=== PATIENT | male | born 1935 | race Caucasian/White ===

== ENCOUNTER 2018-06-22 11:44 | Inpatient (IN) | payer OTHER ==
--- NOTE | 2018-06-22 12:02 | PDOC ---
Attending Attestation - HPI HPI: 06/22/18 15:31 The patient is a 82 year old male, with a unknown significant past medical history of "heart, lung and prostate problems" (HTN, CAD, COPD, and BPH based on meds), who presents to the emergency department with, itching upon urination , prostate pain, and diffuse abdominal pain. He denies any recent headache or dizziness. He denies any recent nausea, vomit, diarrhea or constipation. He denies any recent chest pain or shortness of breath. Allergies: Aspirin <Emilie Stone - Last Filed: 06/22/18 15:30> - Resident Resident Name: Zahida Cao - Physicial Exam PE: 06/22/18 15:06 Agree with resident exam. Patient is alert and oriented and in no acute distress. Abdomen is mildly tender to deep palpation in the suprapubic area. Heart: regular rate and rhythm. Lung exam: good air entry b/l, scant crackles at the bases. - Medical Decision Making 06/22/18 13:58 Pt presents to the ED complaining of fever and supprapubic pain and rectal pain. Denies nausea or vomiting or other complaints. Febrile and tachycardic in the ED. Differential includes cystitis, prostatitis, less likely PNA or other sources of infection. Will check UA, blood and urine cx, CXR. Will treat with broad spectrum antibiotcs and admit to medicine for continued management of UTI. 06/22/18 15:03 <Estrella Garrett - Last Filed: 06/22/18 15:34> Attestations - Attestations 06/22/18 15:32 Documentation prepared by Emilie Stone, acting as certified medical aide for Estrella Garrett MD. <Emilie Stone - Last Filed: 06/22/18 15:30>
[2018-06-22] MEDS ORDERED: SODIUM CHLORIDE 0.9% 500 ML INFUS.BAG IV ONE (12:45)
[2018-06-22] MEDS ORDERED: ACETAMINOPHEN 1000 MG/100 ML VIAL (NON FORMULARY) IVPB ONE (12:45)
[2018-06-22] MEDS ORDERED: VANCOMYCIN 1 GM in D5W (PRE-DOCKED) 1,000 MG/250 ML IVPB ONE (12:50)
[2018-06-22] MEDS ORDERED: PIPERACILLIN/TAZOB 4.5 GM 4.5 GM in DEXTROSE 5%-WATER 100 ML IVPB ONE (12:50)
--- NOTE | 2018-06-22 12:52 | PDOC ---
History of Present Illness - General Chief Complaint: Pain Stated Complaint: ABD PAIN Time Seen by Provider: 06/22/18 11:58 - History of Present Illness Initial Comments: Solomon Cabral is an 82yo man with a PMH of "heart, lung and prostate problems " who presents reporting itching with urination, fever at home with shivering last night, and pain 'on the inside" of his rectum. He states that his prostate hurts but is unable to elaborate how he knows this. He states that he has 5/10 pain inside his rectum, and it is "not that bad" but is "bothering him." He denies any unusual difficulty urinating or hematuria but does report that his penis itches when he urinates. He denies any chest pain, nausea/vomiting, change in bowel habits (last BM this morning), melena/hematochezia, or other new symptoms. He does report chronic SOB, unchanged today, and chronic LLE pain that has been "always there." Mr Cabral is not sure what his medical history is. Per review of his medications, he takes Spiriva and another inhaler, losartan, clonidine, and Plavix. He reports a previous prostate procedure as well as a previous hospital admission for UTI. Past History - Past Medical History Allergies/Adverse Reactions: Allergies Allergy/AdvReac Type Severity Reaction Status Date / Time aspirin Allergy Severe Difficulty Verified 06/22/18 12:01 Breathing Home Medications: Ambulatory Orders Lisinopril [Prinivil] 20 mg PO DAILY 10/21/15 Tamsulosin HCl [Flomax -] 0.4 mg PO DAILY 10/21/15 Levofloxacin [Levaquin] 750 mg PO DAILY #4 tablet 10/24/15 COPD: No Disorders: Yes (enlarged prostate) HTN: Yes - Suicide/Smoking/Psychosocial Hx Smoking History: Never smoked Have you smoked in the past 12 months: No Information on smoking cessation initiated: No Hx Alcohol Use: No Drug/Substance Use Hx: No Substance Use Type: None Review of Systems - Review of Systems Comments:: General: +fevers, +shivering, no weight or appetite change, no malaise HEENT: No changes in vision, no changes in hearing, no congestion, no sore throat CV: No chest pain, no palpitations, no LE edema Pulm: +Chronic SOB, no cough, no wheezing GI: No nausea or vomiting, no change in bowel habits, no melena, +rectal pain : +pain/itching, +BPH (?) Musc: No back pain, no joint swelling, no recent injury, +LLE chronic pain Skin: No rash, no lesions, no erythema Endo: No excessive thirst, no heat/cold intolerance Heme: No unusual bruising or bleeding, no swollen glands Neuro: No syncope, no numbness/tingling, no focal weakness Vasc: No claudication Psych: No recent change in mood, no SI or HI *Physical Exam - Vital Signs Last Vital Signs Temp Pulse Resp BP Pulse Ox 102.3 F H 112 H 16 156/67 100 06/22/18 11:54 06/22/18 11:54 06/22/18 11:54 06/22/18 11:54 06/22/18 11:54 - Physical Exam Comments: General: Comfortable, no acute distress HEENT: PERRL, EOMI, MMM, voice normal, normal neck ROM, difficulty hearing Cards: Tachycardic, regular, no murmur appreciated Pulm: Comfortable on room air, diminished breath sounds in b/l bases Abd: Soft, nontender, nondistended : No CVA tenderness Rectal: Normal tone, no blood noted, no perianal lesions, +enlarged prostate with TTP Ext: Atraumatic. No LE edema. ROM intact. Strength equal bilaterally Vasc: Extremities WWP Skin: Normal color, no rashes or lesions Neuro: A&Ox3, CN grossly intact, normal speech, motor/sensory grossly intact and symmetric Psych: Mood appropriate to situation Moderate Sedation - Procedure Monitoring Vital Signs: Procedure Monitoring Vital Signs Temperature 102.3 F H 06/22/18 11:54 Pulse Rate 112 H 06/22/18 11:54 Respiratory Rate 16 06/22/18 11:54 Blood Pressure 156/67 06/22/18 11:54 O2 Sat by Pulse Oximetry (%) 100 06/22/18 11:54 ED Treatment Course - LABORATORY CBC & Chemistry Diagram: 06/22/18 12:50 06/22/18 12:50 - RADIOLOGY Radiology Studies Ordered: Category Date Time Status CHEST X-RAY PORTABLE* [RAD] Stat Radiology 06/22/18 12:44 Ordered Medical Decision Making - Medical Decision Making 06/22/18 12:51 Solomon Cabral is an 82yo man with a PMH of "heart, lung and prostate problems " (HTN, CAD, COPD, BPH based on meds) who presents with fever and rigors, pain/ itching with urination, and prostate TTP since yesterday. - Meets sepsis criteria, most likely secondary to UTI or prostatitis. No cough, congestion, abd pain, rash, or wounds suggesting another source - CBC, chemistry, trop, blood cultures, urine culture, lactate, CXR, EKG for evaluation - Stool occult blood sent given rectal pain - 1L IVF, IV acetaminophen, empiric vanc/zosyn - Will reassess vitals following fluids and acetaminophen 06/22/18 13:42 - Labs notable for WBC 16, UA with 2+ leuk esterase (cell counts pending), lactate normal - HR decreased to 88. Will recheck temp - Discussed admission with Mr Cabral and his . Both agree to this plan - Microblog sent to hospitalist team for admission for sepsis secondary to UTI 06/22/18 15:54 - Pt signed out to Dr Rashid. Mr Cabral will be accepted for inpatient admission Discussed with Dr Garrett. Zahida Cao PGY1 *DC/Admit/Observation/Transfer Diagnosis at time of Disposition: Sepsis Urinary tract infection Qualifiers: Urinary tract infection type: site unspecified Hematuria presence: without hematuria Qualified Code(s): N39.0 - Urinary tract infection, site not specified - Discharge Dispostion Condition at time of disposition: Stable Decision to Admit order: Yes - Referrals Referrals: ON STAFF,NOT [Primary Care Provider] - - Patient Instructions - Post Discharge Activity
[2018-06-22] MEDS ORDERED: ACETAMINOPHEN INJECTION 100 ML IVPB ONE (13:09)
[2018-06-22 13:31] LABS: VENOUS PC02 46.3 mmHg (38-52); VENOUS PH 7.39 (7.32-7.42); VENOUS PO2 27.9 mmHg (28-48)
[2018-06-22 13:34] LABS: INR 1.32 (0.83-1.09); PROTHROMBIN TIME (PATIENT) 15.6 SEC (9.7-13.0)
[2018-06-22 13:37] LABS: ACTIVATED PTT 33.5 SECONDS (25.2-36.5)
[2018-06-22 13:44] LABS: BASO % 0.1 % (0-2.0); HEMATOCRIT 40.6 % (35.4-49); HEMOGLOBIN 13.5 GM/dL (11.7-16.9); LYMPH % 5.4 % (8-40); MCH 27.3 pg (25.7-33.7); MCHC 33.3 g/dl (32.0-35.9); MEAN CELL VOLUME 82.1 fl (80-96); MEAN PLT VOLUME 9.2 fl (7.5-11.1); MONO % 11.8 % (3.8-10.2); NEUT % 82.7 % (42.8-82.8); PLATELET COUNT 135 K/MM3 (134-434); RBC 4.95 M/mm3 (4.00-5.60); RDW 14.5 % (11.9-15.9); URINE APPEARANCE CLOUDY; URINE BILIRUBIN NEGATIVE (<2.0 mg/dL); URINE COLOR YELLOW; URINE GLUCOSE (UA) NEGATIVE (NEGATIVE); URINE KETONE NEGATIVE (NEGATIVE); URINE LEUK ESTERASE 2+ (NEGATIVE); URINE NITRITE POSITIVE (NEGATIVE); URINE PROTEIN 1+ (NEGATIVE); WHITE BLOOD COUNT 16.9 K/mm3 (4.0-10.0)
[2018-06-22 13:47] LABS: ALBUMIN 3.5 g/dl (3.4-5.0); ALK PHOS 81 U/L (45-117); ANION GAP 7 MMOL/L (8-16); BILIRUBIN,TOTAL 1.7 mg/dL (0.2-1); BLOOD UREA NITROGEN 18 mg/dL (7-18); CALCIUM 8.5 mg/dL (8.5-10.1); CHLORIDE 103 mmol/L (98-107); CO2 27 mmol/L (21-32); CREATININE 1.2 mg/dL (0.55-1.3); GLUCOSE,RANDOM 85 mg/dL (74-106); POTASSIUM 3.8 mmol/L (3.5-5.1); SGOT/AST 15 U/L (15-37); SGPT/ALT 18 U/L (13-61); SODIUM 137 mmol/L (136-145); TOT PROT 7.2 g/dl (6.4-8.2)
[2018-06-22] MEDS ORDERED: PIPERACILLIN/TAZOB 4.5 GM 4.5 GM/100 ML BAG IVPB ONE (13:55)
[2018-06-22 15:17] LABS: URINE BACTERIA MODERATE /hpf (NONE SEEN); URINE MUCUS FEW
--- NOTE | 2018-06-22 15:50 | PN ---
Teaching Attending Note Name of Resident: Jacob Rashid ATTENDING PHYSICIAN STATEMENT I saw and evaluated the patient. I reviewed the resident's note and discussed the case with the resident. I agree with the resident's findings and plan as documented. SUBJECTIVE: Patient is a 82yo Ukrainian-speaking Male with PMHx of HTN, COPD, BPH, mild dementia who presents today with a 1 day hx of rectal pain, fever, and chills experienced last night. patient is s/p cystoscopy with [facility] about 3weeks due to having hematuria. Presents with having fever of 102.5 with tachycardia. OBJECTIVE: Vital Signs Temperature 102.3 F H 06/22/18 11:54 Pulse Rate 90 06/22/18 15:29 Respiratory Rate 18 06/22/18 15:29 Blood Pressure 106/55 L 06/22/18 15:29 O2 Sat by Pulse Oximetry (%) 95 06/22/18 15:29 GENERAL: The patient is awake, alert, and fully oriented, in no acute distress. HEAD: Normal with no signs of trauma. EYES: PERRL, extraocular movements intact, sclera anicteric, conjunctiva clear. ENT: Ears normal, oropharynx clear without exudates, moist mucous membranes. NECK: Trachea midline, full range of motion, supple. LUNGS: Breath sounds equal, clear to auscultation bilaterally, no wheezes, no crackles, no accessory muscle use. HEART: Regular rate and rhythm, S1, S2 without murmur, rub or gallop. ABDOMEN: Soft, nontender, nondistended, normoactive bowel sounds, no guarding, no rebound, no hepatosplenomegaly, no masses. EXTREMITIES: 2+ pulses, warm, well-perfused, no edema. NEUROLOGICAL: Cranial nerves II through XII grossly intact. Normal speech, gait not observed. PSYCH: Normal mood, normal affect. SKIN: Warm, dry, normal turgor, no rashes or lesions noted. CBCD WBC 16.9 K/mm3 (4.0-10.0) H 06/22/18 12:50 RBC 4.95 M/mm3 (4.00-5.60) 06/22/18 12:50 Hgb 13.5 GM/dL (11.7-16.9) 06/22/18 12:50 Hct 40.6 % (35.4-49) D 06/22/18 12:50 MCV 82.1 fl (80-96) 06/22/18 12:50 MCHC 33.3 g/dl (32.0-35.9) 06/22/18 12:50 RDW 14.5 % (11.9-15.9) 06/22/18 12:50 Plt Count 135 K/MM3 (134-434) D 06/22/18 12:50 MPV 9.2 fl (7.5-11.1) 06/22/18 12:50 CMP Sodium 137 mmol/L (136-145) 06/22/18 12:50 Potassium 3.8 mmol/L (3.5-5.1) 06/22/18 12:50 Chloride 103 mmol/L (98-107) 06/22/18 12:50 Carbon Dioxide 27 mmol/L (21-32) 06/22/18 12:50 Anion Gap 7 MMOL/L (8-16) L 06/22/18 12:50 BUN 18 mg/dL (7-18) 06/22/18 12:50 Creatinine 1.2 mg/dL (0.55-1.3) 06/22/18 12:50 Creat Clearance w eGFR 58.11 (>60) 06/22/18 12:50 Random Glucose 85 mg/dL (74-106) 06/22/18 12:50 Calcium 8.5 mg/dL (8.5-10.1) 06/22/18 12:50 Total Bilirubin 1.7 mg/dL (0.2-1) H 06/22/18 12:50 AST 15 U/L (15-37) 06/22/18 12:50 ALT 18 U/L (13-61) 06/22/18 12:50 Alkaline Phosphatase 81 U/L (45-117) 06/22/18 12:50 Total Protein 7.2 g/dl (6.4-8.2) 06/22/18 12:50 Albumin 3.5 g/dl (3.4-5.0) 06/22/18 12:50 CARDIAC ENZYMES Troponin I < 0.02 ng/ml (0.00-0.05) 06/22/18 12:44 Vital Signs Temperature 102.3 F H 06/22/18 11:54 Pulse Rate 90 06/22/18 15:29 Respiratory Rate 18 06/22/18 15:29 Blood Pressure 106/55 L 06/22/18 15:29 O2 Sat by Pulse Oximetry (%) 95 06/22/18 15:29 Current Medications Generic Name Dose Route Start Last Admin Trade Name Freq PRN Reason Stop Dose Admin Acetaminophen 650 mg 06/22/18 15:56 Tylenol - PO Q4H PRN FEVER Clopidogrel Bisulfate 75 mg 06/23/18 10:00 Plavix - PO DAILY FIDEL Donepezil HCl 5 mg 06/23/18 10:00 Aricept - PO DAILY FIDEL Sodium Chloride 1,000 mls @ 100 mls/hr 06/22/18 16:00 06/22/18 16:15 Normal Saline - IV 06/23/18 01:59 100 mls/hr ASDIR FIDEL Administration Piperacillin Sod/Tazobactam 50 mls @ 100 mls/hr 06/22/18 18:00 Sod 3.375 gm/ Dextrose IVPB Q8H-IV FIDEL Protocol Piperacillin Sod/Tazobactam 50 mls @ 100 mls/hr 06/22/18 18:00 Sod 3.375 gm/ Dextrose IVPB 06/23/18 10:29 Q8H-IV FIDEL Protocol Losartan Potassium 25 mg 06/23/18 10:00 Cozaar - PO DAILY FIDEL Tamsulosin HCl 0.4 mg 06/23/18 10:00 Flomax - PO DAILY [facility] Tiotropium [place] 2 puff 06/23/18 10:00 Spiriva Respimat IH DAILY [facility] Home Medications Medication Instructions Recorded Tamsulosin HCl [Flomax -] 0.4 mg PO DAILY 10/21/15 Clopidogrel Bisulfate [Plavix] 75 mg PO DAILY 06/22/18 Donepezil HCl [Aricept -] 5 mg PO DAILY 06/22/18 Losartan Potassium [Cozaar -] 25 mg PO DAILY 06/22/18 Tiotropium [place] [Spiriva 2.5 mcg IH DAILY 06/22/18 Respimat] ASSESSMENT AND PLAN: Patient is a 82yo Ukrainian-speaking Male with PMHx of HTN, COPD, BPH, mild dementia who presents today with a 1-day history of rectal pain, fever, and chills experienced last night. Hx of UTI a month ago which he was treated with Levaquin. In the ED pt was given Vancomycin 1gm and Zosyn 4.5 x1 each alongside of 1LNS and tylenol. # Sepsis due to having Urinary tract infection On IV ZOsyn consulted id since patient had a recent cytoscopy. # Acute COPD Exacerbation on 2 liter oxygen at home . will continue oxygen. Nebulizer treatment #Acute Dehydration s/p IVF # hx of BPH :continue Flomax # Hypertension: continue Lisinopril DVT px: Heparin sq
--- NOTE | 2018-06-22 15:53 | HP ---
CHIEF COMPLAINT: Fever, chills, rectal pain PCP: Not on staff HISTORY OF PRESENT ILLNESS: 82yo Kenyan-speaking M with history of HTN, COPD, BPH, mild dementia who presents today with a 1-day history of rectal pain, fever, and chills experienced last night. Pt reports undergoing cystoscopy with [facility]iezer about 3weeks to 1 month ago due to 5 days of hematuria. He reports taking Levaquin ( unknown dose) after his cystoscopy for a total of 3 days for prophylaxis. Pt states he cannot remember what the findings of the cystoscopy were, but his hematuria subsided shortly thereafter. Since last night (06/21/18) pt has been experiencing rectal discomfort, however his last BM was yesterday with normal character and quality. He reports that when he urinates he experiences itching, however he has had normal strength and quantity of urine. Pt denies hematuria. During the night pt experienced frequent chills and fevers with slight diaphoresis and so came to the ER today for further evaluation. Pt also endorses minimal lower abdominal discomfort rated 3-4/10 without radiation, exacerbation, or alleviation. Pt denies any headaches, lightheadedness, n/v/ diarrhea/constipation, SOB, CP/discomfort, palpitations, back pain, neck pain, lower extremity pain, parasthesias, and weakness. In the ED pt was given Vancomycin 1gm and Zosyn 4.5 x1 each alongside of 1LNS and tylenol. Recent Travel: Denies PAST MEDICAL HISTORY: HTN COPd BPH Mild dementia ? CAD (aspirin allergy) PAST SURGICAL HISTORY: Cystoscopy (1 month prior; Dr. Martins) Social History: Smoking: Denies Alcohol: Denies Drugs: Denies Lives at home in monogamous relationship with . Independent in ADL's without assist devices Family History: Noncontributory Allergies aspirin Allergy (Severe, Verified 06/22/18 12:01) Difficulty Breathing HOME MEDICATIONS: Home Medications Medication Instructions Recorded Lisinopril [Prinivil] 20 mg PO DAILY 10/21/15 Tamsulosin HCl [Flomax -] 0.4 mg PO DAILY 10/21/15 Levofloxacin [Levaquin] 750 mg PO DAILY #4 tablet 10/24/15 REVIEW OF SYSTEMS As per HPI PHYSICAL EXAMINATION Vital Signs - 24 hr 06/22/18 06/22/18 11:54 15:29 Temperature 102.3 F H Pulse Rate 112 H Pulse Rate [ 90 Left Radial] Respiratory 16 18 Rate Blood Pressure 156/67 Blood Pressure 106/55 L [Right Arm] O2 Sat by Pulse 100 95 Oximetry (%) GENERAL: NAD, awake, alert, and fully oriented, laying in bed, not diaphoretic. HEENT: NC/AT, EOMI, MALCOLM, sclera anicteric, [id number] mucosa, no posterior oropharynx plaques or exudates noted NECK: No JVD appreciated, no lymphadenopathy LUNGS: CTA bilaterally. No wheezes, and no crackles. No accessory muscle use. On RA HEART: Tachycardic with regular rhythm, normal S1 and S2 without murmur ABDOMEN: Soft, nondistended, normoactive BS, mild TTP in lower abdominal quadrants, no guarding, no rebound, no hepatomegaly, negative De La Vega's sign RECTAL: No masses, warm and tender prostate without real bogginess appreciated, stool soft and brown on glove after exam. MUSCULOSKELETAL: No CVA tenderness. EXTREMITIES: 2+ distal pulses b/l, warm, well-perfused. No calf tenderness. No peripheral edema. NEUROLOGICAL: nonfocal strength and sensory exam. Normal speech. gait not observed PSYCHIATRIC: Cooperative. Good eye contact. Appropriate mood and affect. SKIN: Warm, dry, no rashes or lesions noted Laboratory Results 06/22/18 06/22/18 06/22/18 12:44 12:50 12:50 WBC 16.9 H RBC 4.95 Hgb 13.5 Hct 40.6 D MCV 82.1 MCH 27.3 MCHC 33.3 RDW 14.5 Plt Count 135 D MPV 9.2 Absolute Neuts (auto) 14.0 H Neutrophils % 82.7 Lymphocytes % 5.4 L D Monocytes % 11.8 H Eosinophils % 0.0 D Basophils % 0.1 Nucleated RBC % 0 PT with INR 15.60 H INR 1.32 H PTT (Actin FS) 33.5 VBG pH POC VBG pCO2 POC VBG pO2 Mixed VBG HCO3 Sodium Potassium Chloride Carbon Dioxide Anion Gap BUN Creatinine Creat Clearance w eGFR Random Glucose Lactic Acid Calcium Total Bilirubin AST ALT Alkaline Phosphatase Troponin I < 0.02 Total Protein Albumin Urine Color Urine Appearance Urine pH Ur Specific [place] Urine Protein Urine Glucose (UA) Urine Ketones Urine Blood Urine Nitrite Urine Bilirubin Urine Urobilinogen Ur Leukocyte Esterase Urine WBC (Auto) Urine RBC (Auto) Urine Bacteria Urine Mucus Stool Occult Blood 06/22/18 06/22/18 12:50 12:50 WBC RBC Hgb Hct MCV MCH MCHC RDW Plt Count MPV Absolute Neuts (auto) Neutrophils % Lymphocytes % Monocytes % Eosinophils % Basophils % Nucleated RBC % PT with INR INR PTT (Actin FS) VBG pH 7.39 POC VBG pCO2 46.3 D POC VBG pO2 27.9 L D Mixed VBG HCO3 27.1 H Sodium Potassium Chloride Carbon Dioxide Anion Gap BUN Creatinine Creat Clearance w eGFR Random Glucose Lactic Acid Calcium Total Bilirubin AST ALT Alkaline Phosphatase Troponin I Total Protein Albumin Urine Color Yellow Urine Appearance Cloudy Urine pH 6.0 Ur Specific [place] 1.019 Urine Protein 1+ H Urine Glucose (UA) Negative Urine Ketones Negative Urine Blood 1+ H Urine Nitrite Positive Urine Bilirubin Negative Urine Urobilinogen 2.0 Ur Leukocyte Esterase 2+ H Urine WBC (Auto) 114 Urine RBC (Auto) 11 Urine Bacteria Moderate Urine Mucus Few Stool Occult Blood Negative 06/22/18 12:50 WBC RBC Hgb Hct MCV MCH MCHC RDW Plt Count MPV Absolute Neuts (auto) Neutrophils % Lymphocytes % Monocytes % Eosinophils % Basophils % Nucleated RBC % PT with INR INR PTT (Actin FS) VBG pH POC VBG pCO2 POC VBG pO2 Mixed VBG HCO3 Sodium 137 Potassium 3.8 Chloride 103 Carbon Dioxide 27 Anion Gap 7 L BUN 18 Creatinine 1.2 Creat Clearance w eGFR 58.11 Random Glucose 85 Lactic Acid 1.8 Calcium 8.5 Total Bilirubin 1.7 H AST 15 ALT 18 Alkaline Phosphatase 81 Troponin I Total Protein 7.2 Albumin 3.5 Urine Color Urine Appearance Urine pH Ur Specific [place] Urine Protein Urine Glucose (UA) Urine Ketones Urine Blood Urine Nitrite Urine Bilirubin Urine Urobilinogen Ur Leukocyte Esterase Urine WBC (Auto) Urine RBC (Auto) Urine Bacteria Urine Mucus Stool Occult Blood ASSESSMENT/PLAN: Sepsis 2/2 to prostatitis Elevated total bilirubin HTN BPH COPD (not in exacerbation) Dementia (mild) --Prostatitis based on physical and laboratory findings with recent urological procedure --ID consulted regarding ABX management given procedure and prophylaxis completed --Continue NS@100cc/hr --Previous UCx in 2016 showing E. 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 Evans and ID team Jacob Rashid DO - IM PGY-2 Visit type - Emergency Visit Emergency Visit: Yes Care time: The patient presented to the Emergency Department on the above date and was hospitalized for further evaluation of their emergent condition. - New Patient This patient is new to me today: Yes Date on this admission: 06/22/18 - Critical Care Critical Care patient: No
[2018-06-22] MEDS ORDERED: ACETAMINOPHEN 325 MG TABLET (FP) PO PRN (15:56)
[2018-06-22] MEDS ORDERED: SODIUM CHLORIDE 1,000 ML IV SCH (16:00)
[2018-06-22] MEDS ORDERED: FUROSEMIDE 40 MG/4 ML INJECTABLE VIAL IVPUSH ONE (18:30)
[2018-06-22] MEDS: ALBUTEROL SO4 2.5/IPRATROPIUM 0.5 INH SOL 3 ML VIAL.NEB. NEB PRN (18:47)
[2018-06-22] MEDS ORDERED: DEXTROSE 5%-WATER - 50 ML IVPB ONE (21:43)
[2018-06-22] MEDS ORDERED: PIPERACILLIN/TAZOBACTAM 3.375 GM VIAL IVPB ONE (21:43)
[2018-06-22] MEDS: PIPERACILLIN/TAZOB 3.375 GM 3.375 GM in DEXTROSE 5%-WATER - 50 ML IVPB SCH (22:15)
[2018-06-22] MEDS: HEPARIN NA (PORCINE) 5,000 UNITS/ML 1ML VIAL SQ SCH (22:15)
[2018-06-23] MEDS ORDERED: PIPERACILLIN/TAZOBACTAM 3.375 GM VIAL IVPB ONE ×2 (01:22→09:09)
[2018-06-23] MEDS ORDERED: DEXTROSE 5%-WATER - 50 ML IVPB ONE ×2 (01:23→09:09)
[2018-06-23] MEDS: PIPERACILLIN/TAZOB 3.375 GM 3.375 GM in DEXTROSE 5%-WATER - 50 ML IVPB SCH ×3 (01:46→18:37)
[2018-06-23] MEDS: HEPARIN NA (PORCINE) 5,000 UNITS/ML 1ML VIAL SQ SCH ×3 (05:13→21:35)
[2018-06-23 08:08] LABS: BASO % 0.2 % (0-2.0); HEMATOCRIT 34.5 % (35.4-49); HEMOGLOBIN 11.6 GM/dL (11.7-16.9); MCH 27.6 pg (25.7-33.7); MCHC 33.6 g/dl (32.0-35.9); MEAN CELL VOLUME 82.1 fl (80-96); MONO % 12.3 % (3.8-10.2); NEUT % 79.5 % (42.8-82.8); PLATELET COUNT 111 K/MM3 (134-434); RBC 4.21 M/mm3 (4.00-5.60); RDW 14.5 % (11.9-15.9); WHITE BLOOD COUNT 13.2 K/mm3 (4.0-10.0)
[2018-06-23 08:36] LABS: ALBUMIN 2.7 g/dl (3.4-5.0); ALK PHOS 63 U/L (45-117); ANION GAP 7 MMOL/L (8-16); BILIRUBIN,TOTAL 1.6 mg/dL (0.2-1); BLOOD UREA NITROGEN 16 mg/dL (7-18); CHLORIDE 102 mmol/L (98-107); CO2 29 mmol/L (21-32); CREATININE 1.4 mg/dL (0.55-1.3); GLUCOSE,RANDOM 83 mg/dL (74-106); MAGNESIUM 1.8 mg/dL (1.8-2.4); POTASSIUM 3.7 mmol/L (3.5-5.1); SGOT/AST 14 U/L (15-37); SGPT/ALT 13 U/L (13-61); SODIUM 137 mmol/L (136-145); TOT PROT 6.1 g/dl (6.4-8.2)
[2018-06-23] MEDS ORDERED: PT OWN MED DRAWER 7, Y5N ONE (09:09)
[2018-06-23] MEDS ORDERED: TAMSULOSIN HCL 0.4 MG CAP PO SCH (10:00)
[2018-06-23] MEDS: CLOPIDOGREL BISULFATE 75 MG TABLET (FP) PO SCH (10:20)
[2018-06-23] MEDS: LOSARTAN POTASSIUM 25 MG TABLET PO SCH (10:20)
[2018-06-23] MEDS: DONEPEZIL HCL 5 MG TABLET (FP) PO SCH (10:20)
[2018-06-23] MEDS: TIOTROPIUM BROMIDE 2.5 MCG (SPIRIVA) RESPIMAT INHALER IH SCH (11:35)
--- NOTE | 2018-06-23 13:44 | PN ---
Progress Note (short form) - Note Progress Note: ID consult dictated imp/reccd UTI prostatitis leidy recent quinolone use continue zosyn urology consult imaging will d/w hospitalist service
--- NOTE | 2018-06-23 20:57 | PN ---
Progress Note (short form) - Note Progress Note: Patient is feeling better , mild fever overnight. Vital Signs Temperature 97.3 F L 06/23/18 13:58 Pulse Rate 89 06/23/18 13:58 Respiratory Rate 20 06/23/18 13:58 Blood Pressure 104/51 L 06/23/18 13:58 O2 Sat by Pulse Oximetry (%) 99 06/22/18 21:30 GENERAL: The patient is awake, alert, and fully oriented, in no acute distress. HEAD: Normal with no signs of trauma. EYES: PERRL, extraocular movements intact, sclera anicteric, conjunctiva clear. ENT: Ears normal, oropharynx clear without exudates, moist mucous membranes. NECK: Trachea midline, full range of motion, supple. LUNGS: Breath sounds equal, clear to auscultation bilaterally, no wheezes, no crackles, no accessory muscle use. HEART: Regular rate and rhythm, S1, S2 without murmur, rub or gallop. ABDOMEN: Soft, nontender, nondistended, normoactive bowel sounds, no guarding, no rebound, no hepatosplenomegaly, no masses. EXTREMITIES: 2+ pulses, warm, well-perfused, no edema. NEUROLOGICAL: Cranial nerves II through XII grossly intact. Normal speech, gait not observed. PSYCH: Normal mood, normal affect. SKIN: Warm, dry, normal turgor, no rashes or lesions noted. CBCD WBC 13.2 K/mm3 (4.0-10.0) H 06/23/18 07:00 RBC 4.21 M/mm3 (4.00-5.60) 06/23/18 07:00 Hgb 11.6 GM/dL (11.7-16.9) L 06/23/18 07:00 Hct 34.5 % (35.4-49) L D 06/23/18 07:00 MCV 82.1 fl (80-96) 06/23/18 07:00 MCHC 33.6 g/dl (32.0-35.9) 06/23/18 07:00 RDW 14.5 % (11.9-15.9) 06/23/18 07:00 Plt Count 111 K/MM3 (134-434) L 06/23/18 07:00 MPV 9.0 fl (7.5-11.1) 06/23/18 07:00 CMP Sodium 137 mmol/L (136-145) 06/23/18 07:00 Potassium 3.7 mmol/L (3.5-5.1) 06/23/18 07:00 Chloride 102 mmol/L (98-107) 06/23/18 07:00 Carbon Dioxide 29 mmol/L (21-32) 06/23/18 07:00 Anion Gap 7 MMOL/L (8-16) L 06/23/18 07:00 BUN 16 mg/dL (7-18) 06/23/18 07:00 Creatinine 1.4 mg/dL (0.55-1.3) H 06/23/18 07:00 Creat Clearance w eGFR 48.64 (>60) 06/23/18 07:00 Random Glucose 83 mg/dL (74-106) 06/23/18 07:00 Calcium 8.0 mg/dL (8.5-10.1) L 06/23/18 07:00 Total Bilirubin 1.6 mg/dL (0.2-1) H 06/23/18 07:00 AST 14 U/L (15-37) L 06/23/18 07:00 ALT 13 U/L (13-61) 06/23/18 07:00 Alkaline Phosphatase 63 U/L (45-117) 06/23/18 07:00 Total Protein 6.1 g/dl (6.4-8.2) L 06/23/18 07:00 Albumin 2.7 g/dl (3.4-5.0) L 06/23/18 07:00 CARDIAC ENZYMES Troponin I < 0.02 ng/ml (0.00-0.05) 06/22/18 12:44 Current Medications Generic Name Dose Route Start Last Admin Trade Name Freq PRN Reason Stop Dose Admin Acetaminophen 650 mg 06/22/18 15:56 Tylenol - PO Q4H PRN FEVER Albuterol/Ipratropium 1 amp 06/22/18 18:31 06/22/18 18:47 Duoneb - NEB 1 amp Q4H PRN Administration SHORTNESS OF BREATH Clopidogrel Bisulfate 75 mg 06/23/18 10:00 06/23/18 10:20 Plavix - PO 75 mg DAILY FIDEL Administration Donepezil HCl 5 mg 06/23/18 10:00 06/23/18 10:20 Aricept - PO 5 mg DAILY FIDEL Administration Heparin Sodium (Porcine) 5,000 unit 06/22/18 22:00 06/23/18 15:14 Heparin - SQ 5,000 unit TID FIDEL Administration Piperacillin Sod/Tazobactam 50 mls @ 100 mls/hr 06/23/18 18:00 06/23/18 18:37 Sod 3.375 gm/ Dextrose IVPB 100 mls/hr Q8H-IV FIDEL Administration Protocol Losartan Potassium 25 mg 06/23/18 10:00 06/23/18 10:20 Cozaar - PO 25 mg DAILY FIDEL Administration Tamsulosin HCl 0.4 mg 06/23/18 13:33 Flomax - PO DAILY@0830 [facility] Tiotropium [place] 2 puff 06/23/18 10:00 06/23/18 11:35 Spiriva Respimat IH 2 puff DAILY FIDEL Administration Home Medications Medication Instructions Recorded Tamsulosin HCl [Flomax -] 0.4 mg PO DAILY 10/21/15 Clopidogrel Bisulfate [Plavix] 75 mg PO DAILY 06/22/18 Donepezil HCl [Aricept -] 5 mg PO DAILY 06/22/18 Losartan Potassium [Cozaar -] 25 mg PO DAILY 06/22/18 Tiotropium [place] [Spiriva 2.5 mcg IH DAILY 06/22/18 Respimat] ASSESSMENT AND PLAN: Patient is a 82yo British-speaking Male with PMHx of HTN, COPD, BPH, mild dementia who presents today with a 1-day history of rectal pain, fever, and chills experienced last night. Hx of UTI a month ago which he was treated with Levaquin. In the ED pt was given Vancomycin 1gm and Zosyn 4.5 # Sepsis/ leukocytosis improving due to having Urinary tract infection On IV ZOsyn continue, patient is improving s/p recent cytoscopy. # Acute COPD Exacerbation on 2 liter oxygen at home , on Spiriva continue, Nebulizer treatment #Acute Dehydration s/p IVF # hx of BPH :continue Flomax # Hypertension: continue Lisinopril DVT px: Heparin sq Visit type - Emergency Visit Emergency Visit: Yes ED Registration Date: 06/22/18 Care time: The patient presented to the Emergency Department on the above date and was hospitalized for further evaluation of their emergent condition. - New Patient This patient is new to me today: No - Critical Care Critical Care patient: No - Discharge Referral Referred to [facility] No
[2018-06-23] MEDS: ALBUTEROL SO4 2.5/IPRATROPIUM 0.5 INH SOL 3 ML VIAL.NEB. NEB PRN (21:19)
[2018-06-24] MEDS ORDERED: PIPERACILLIN/TAZOBACTAM 3.375 GM VIAL IVPB ONE ×3 (02:45→18:11)
[2018-06-24] MEDS ORDERED: DEXTROSE 5%-WATER - 50 ML IVPB ONE ×3 (02:45→18:12)
[2018-06-24] MEDS: PIPERACILLIN/TAZOB 3.375 GM 3.375 GM in DEXTROSE 5%-WATER - 50 ML IVPB SCH ×3 (02:48→18:18)
[2018-06-24] MEDS: HEPARIN NA (PORCINE) 5,000 UNITS/ML 1ML VIAL SQ SCH ×3 (05:49→21:28)
[2018-06-24 07:04] LABS: BASO % 0.2 % (0-2.0); EOS % 0.5 % (0-4.5); HEMATOCRIT 33.3 % (35.4-49); HEMOGLOBIN 11.4 GM/dL (11.7-16.9); LYMPH % 9.4 % (8-40); MCHC 34.2 g/dl (32.0-35.9); MEAN CELL VOLUME 81.9 fl (80-96); MEAN PLT VOLUME 8.7 fl (7.5-11.1); MONO % 13.2 % (3.8-10.2); NEUT % 76.7 % (42.8-82.8); PLATELET COUNT 109 K/MM3 (134-434); RBC 4.06 M/mm3 (4.00-5.60); RDW 14.5 % (11.9-15.9); WHITE BLOOD COUNT 9.4 K/mm3 (4.0-10.0)
[2018-06-24 07:33] LABS: ALBUMIN 2.6 g/dl (3.4-5.0); ALK PHOS 62 U/L (45-117); ANION GAP 6 MMOL/L (8-16); BILIRUBIN,TOTAL 1.1 mg/dL (0.2-1); BLOOD UREA NITROGEN 18 mg/dL (7-18); CALCIUM 8.2 mg/dL (8.5-10.1); CHLORIDE 104 mmol/L (98-107); CO2 28 mmol/L (21-32); CREATININE 1.3 mg/dL (0.55-1.3); GLUCOSE,RANDOM 91 mg/dL (74-106); MAGNESIUM 2.2 mg/dL (1.8-2.4); POTASSIUM 3.9 mmol/L (3.5-5.1); SGOT/AST 11 U/L (15-37); SGPT/ALT 12 U/L (13-61); SODIUM 139 mmol/L (136-145); TOT PROT 6.1 g/dl (6.4-8.2)
[2018-06-24] MEDS: TAMSULOSIN HCL 0.4 MG CAP PO SCH (08:55)
[2018-06-24] MEDS: CLOPIDOGREL BISULFATE 75 MG TABLET (FP) PO SCH (09:58)
[2018-06-24] MEDS: LOSARTAN POTASSIUM 25 MG TABLET PO SCH (09:58)
[2018-06-24] MEDS: DONEPEZIL HCL 5 MG TABLET (FP) PO SCH (09:59)
[2018-06-24] MEDS: TIOTROPIUM BROMIDE 2.5 MCG (SPIRIVA) RESPIMAT INHALER IH SCH (10:00)
--- NOTE | 2018-06-24 13:30 | PN ---
Physical Exam: SUBJECTIVE: Patient seen and examined at bedside. Only feeling slightly better than when he came in. Still has pain with urination but is mildly improved. Denies F/C/N/V, abd pain, CP, SOB, blood in urine. OBJECTIVE: Vital Signs Period Temp Pulse Resp BP Sys/Paige Pulse Ox Last 24 Hr 90.1 F-97.9 F 84-96 20-20 104-117/51-62 95 GENERAL: The patient is awake, alert, and fully oriented, in no acute distress. HEAD: Normal with no signs of trauma. EYES: extraocular movements intact, sclera anicteric ENT: Ears normal, nares patent, oropharynx NECK: Trachea midline, full range of motion, supple. LUNGS: Breath sounds equal, clear to auscultation bilaterally, no wheezes, no crackles, no accessory muscle use. HEART: Regular rate and rhythm, S1, S2 ABDOMEN: Soft, nontender, nondistended, normoactive bowel sounds EXTREMITIES: warm, well-perfused, no edema. NEUROLOGICAL: Cranial nerves II through XII grossly intact. Normal speech, gait not observed. PSYCH: Normal mood, normal affect. SKIN: Warm, dry Laboratory Results - last 24 hr 06/24/18 06/24/18 06/24/18 06:00 06:25 06:25 WBC 9.4 RBC 4.06 Hgb 11.4 L Hct 33.3 L MCV 81.9 MCH 28.0 MCHC 34.2 RDW 14.5 Plt Count 109 L MPV 8.7 Absolute Neuts (auto) 7.2 Neutrophils % 76.7 Lymphocytes % 9.4 Monocytes % 13.2 H Eosinophils % 0.5 D Basophils % 0.2 Nucleated RBC % 0 ESR 107 H Sodium 139 Potassium 3.9 Chloride 104 Carbon Dioxide 28 Anion Gap 6 L BUN 18 Creatinine 1.3 Creat Clearance w eGFR 52.98 Random Glucose 91 Calcium 8.2 L Phosphorus 3.0 Magnesium 2.2 Total Bilirubin 1.1 H AST 11 L ALT 12 L Alkaline Phosphatase 62 C-Reactive Protein 18.9 H Total Protein 6.1 L Albumin 2.6 L Active Medications Generic Name Dose Route Start Last Admin Trade Name Freq PRN Reason Stop Dose Admin Acetaminophen 650 mg 06/22/18 15:56 Tylenol - PO Q4H PRN FEVER Albuterol/Ipratropium 1 amp 06/22/18 18:31 06/23/18 21:19 Duoneb - NEB 1 amp Q4H PRN Administration SHORTNESS OF BREATH Clopidogrel Bisulfate 75 mg 06/23/18 10:00 06/24/18 09:58 Plavix - PO 75 mg DAILY FIDEL Administration Donepezil HCl 5 mg 06/23/18 10:00 06/24/18 09:59 Aricept - PO 5 mg DAILY FIDEL Administration Heparin Sodium (Porcine) 5,000 unit 06/22/18 22:00 06/24/18 05:49 Heparin - SQ 5,000 unit TID FIDEL Administration Piperacillin Sod/Tazobactam 50 mls @ 100 mls/hr 06/23/18 18:00 06/24/18 09:57 Sod 3.375 gm/ Dextrose IVPB 100 mls/hr Q8H-IV FIDEL Administration Protocol Losartan Potassium 25 mg 06/23/18 10:00 06/24/18 09:58 Cozaar - PO 25 mg DAILY FIDEL Administration Tamsulosin HCl 0.4 mg 06/23/18 13:33 06/24/18 08:55 Flomax - PO 0.4 mg DAILY@0830 [facility]IDEL Administration Tiotropium [place] 2 puff 06/23/18 10:00 06/24/18 10:00 Spiriva Respimat IH 2 puff DAILY FIDEL Administration ASSESSMENT/PLAN: 82 y/o Jamaican speaking M w/PMH of HTN, COPD, BPH, mild dementia admitted for sepsis secondary to UTI. -Sepsis secondary to UTI -Urine culture repeat ordered as first one was cancelled -c/w zosyn -ID consult -tylenol for fevers -Acute on Chronic COPD exacerbation -Uses 2L O2 at home. O2 supplementation to keep O2 saturation above 90% -Improved. No wheezing noted. -c/w spiriva and duonebs -HTN -c/w losartan -Dementia -c/w aricept -BPH -c/w flomax -CAD -c/w plavix -DVT ppx -Heparin -FEN -no fluids currently -Monitor electrolytes -Regular diet -Dispo: monitor on m/s Visit type - Emergency Visit Emergency Visit: Yes ED Registration Date: 06/22/18 Care time: The patient presented to the Emergency Department on the above date and was hospitalized for further evaluation of their emergent condition. - New Patient This patient is new to me today: Yes Date on this admission: 06/24/18 - Critical Care Critical Care patient: No
--- NOTE | 2018-06-24 14:09 | PN ---
Progress Note (short form) - Note Progress Note: midepigastric discomfort when he eats still some urinary discomfort Vital Signs Period Temp Pulse Resp BP Sys/Paige Pulse Ox Last 24 Hr 90.1 F-97.9 F 84-96 20-20 105-117/59-62 95 cor-rrr lungs clear abd soft,nt ext no edema CBC, BMP 06/24/18 06:00 06/24/18 06:25 Microbiology 06/22/18 12:50 Blood - Peripheral Venous Blood Culture - Preliminary NO GROWTH OBTAINED AFTER 48 HOURS, INCUBATION TO CONTINUE FOR 3 DAYS. 06/22/18 03:44 Blood - Peripheral Venous Blood Culture - Preliminary NO GROWTH OBTAINED AFTER 48 HOURS, INCUBATION TO CONTINUE FOR 3 DAYS. urine culture cancelled- no sample received! esr 107/crp 18.9 Active Medications Acetaminophen (Tylenol -) 650 mg PO Q4H PRN PRN Reason: FEVER Albuterol/Ipratropium (Duoneb -) 1 amp NEB Q4H PRN PRN Reason: SHORTNESS OF BREATH Last Admin: 06/23/18 21:19 Dose: 1 amp Clopidogrel Bisulfate (Plavix -) 75 mg PO DAILY [facility] Last Admin: 06/24/18 09:58 Dose: 75 mg Donepezil HCl (Aricept -) 5 mg PO DAILY [facility] Last Admin: 06/24/18 09:59 Dose: 5 mg Heparin Sodium (Porcine) (Heparin -) 5,000 unit SQ TID [facility] Last Admin: 06/24/18 05:49 Dose: 5,000 unit Piperacillin Sod/Tazobactam (Sod 3.375 gm/ Dextrose) 50 mls @ 100 mls/hr IVPB Q8H-IV [facility]; Protocol Last Admin: 06/24/18 09:57 Dose: 100 mls/hr Losartan Potassium (Cozaar -) 25 mg PO DAILY [facility] Last Admin: 06/24/18 09:58 Dose: 25 mg Tamsulosin HCl (Flomax -) 0.4 mg PO DAILY@0830 [facility] Last Admin: 06/24/18 08:55 Dose: 0.4 mg Tiotropium [place] (Spiriva Respimat) 2 puff IH DAILY [facility] Last Admin: 06/24/18 10:00 Dose: 2 puff a/p UTI prostatitis leidy recent quinolone use continue zosyn urology consult imaging -will order renal/bladder sonogram d/w hospitalist service
[2018-06-24 15:23] LABS: URINE APPEARANCE CLEAR; URINE BILIRUBIN NEGATIVE (<2.0 mg/dL); URINE COLOR YELLOW; URINE GLUCOSE (UA) NEGATIVE (NEGATIVE); URINE KETONE NEGATIVE (NEGATIVE); URINE LEUK ESTERASE 1+ (NEGATIVE); URINE NITRITE NEGATIVE (NEGATIVE); URINE PROTEIN 1+ (NEGATIVE); URINE UROBILINOGEN NEGATIVE mg/dL (0.2-1.0)
--- NOTE | 2018-06-24 20:01 | CONS ---
INFECTIOUS DISEASE CONSULTATION DATE OF CONSULTATION: DATE OF DICTATION: 06/24/2018 HISTORY OF PRESENT ILLNESS: This is an 82-year-old man who was admitted to the hospital on June 22 with complaints of fever and chills that had started the night before. He also noted some rectal discomfort. He had had a recent cystoscopy with Dr. Gil Nowak about a month ago due to hematuria. He had been taking Levaquin for several days, he thinks 3 days. His hematuria has subsided. From the night prior to admission he started having some discomfort when he urinated. He denies any hematuria. Started having frequency and he started having chills and fever. He had no cough, had no nausea or vomiting or abdominal pain. In the ER he was given vancomycin and Zosyn and he was continued on the Zosyn. PAST MEDICAL HISTORY: Notable for hypertension, COPD, BPH and mild dementia. SURGICAL HISTORY: Notable for the recent cystoscopy. ALLERGIES: He is allergic to ASPIRIN. MEDICATIONS: Include Prinivil and Flomax. SOCIAL HISTORY: He lives at home with his . He is Ukrainian speaking. He is from the [place], has not traveled in years. FAMILY HISTORY: Noncontributory. REVIEW OF SYSTEMS: Denies nausea or vomiting. PHYSICAL EXAM: Vital Signs: On physical exam in the ER, at the time he came into the ER he was 102.3. Current temperature is 97.9. Pulse of 96. Blood pressure 113/69. Respiratory rate is 20. General: This morning he notes he has some discomfort in his mid-epigastrium when he eats, but has improved since this morning. He suspects he has gas. HEENT: He is normocephalic. Eyes are anicteric. Neck: Supple. Lungs: Clear to auscultation. Heart: Regular rate and rhythm. Abdomen: Soft, nontender. Extremities: Are notable for no edema. He had a rectal exam done by the admitting doctor which I did not repeat that was notable for no masses but revealed a tender prostate with bogginess, and fluctuance. STUDIES: White count on admission was 16.9, today is 9.4. Hemoglobin 11.4. Platelets are 52. Creatinine is 1.3. Urinalysis has 2+ leukocyte esterase with 114 white cells and cultures are pending. IN SUMMARY: This is an elderly man admitted with urinary tract infection, possible prostatitis, acute kidney injury, recent quinolone use. I would continue Zosyn, continue fluids. I would ask for urologist to reevaluate him and consider doing some imaging of his kidney, bladder and prostate. SUSANA MARQUEZ M.D. [id number]
--- NOTE | 2018-06-24 22:05 | PN ---
Teaching Attending Note Name of Resident: Best Del Valle ATTENDING PHYSICIAN STATEMENT I saw and evaluated the patient. I reviewed the resident's note and discussed the case with the resident. I agree with the resident's findings and plan as documented. SUBJECTIVE: Patient is better today, no fever overnight , but contnues to complain of having rectal pain 10/01. OBJECTIVE: Vital Signs Temperature 98.2 F 06/24/18 19:58 Pulse Rate 98 H 06/24/18 19:58 Respiratory Rate 20 06/24/18 19:58 Blood Pressure 123/72 06/24/18 19:58 O2 Sat by Pulse Oximetry (%) 95 06/24/18 09:00 GENERAL: The patient is awake, alert, and fully oriented, in no acute distress. HEAD: Normal with no signs of trauma. EYES: PERRL, extraocular movements intact, sclera anicteric, conjunctiva clear. ENT: Ears normal, oropharynx clear without exudates, moist mucous membranes. NECK: Trachea midline, full range of motion, supple. LUNGS: Breath sounds equal, clear to auscultation bilaterally, no wheezes, no crackles, no accessory muscle use. HEART: Regular rate and rhythm, S1, S2 without murmur, rub or gallop. ABDOMEN: Soft, nontender, nondistended, normoactive bowel sounds, no guarding, no rebound, no hepatosplenomegaly, no masses. EXTREMITIES: 2+ pulses, warm, well-perfused, no edema. NEUROLOGICAL: Cranial nerves II through XII grossly intact. Normal speech, gait not observed. PSYCH: Normal mood, normal affect. SKIN: Warm, dry, normal turgor, no rashes or lesions noted. CBCD WBC 9.4 K/mm3 (4.0-10.0) 06/24/18 06:00 RBC 4.06 M/mm3 (4.00-5.60) 06/24/18 06:00 Hgb 11.4 GM/dL (11.7-16.9) L 06/24/18 06:00 Hct 33.3 % (35.4-49) L 06/24/18 06:00 MCV 81.9 fl (80-96) 06/24/18 06:00 MCHC 34.2 g/dl (32.0-35.9) 06/24/18 06:00 RDW 14.5 % (11.9-15.9) 06/24/18 06:00 Plt Count 109 K/MM3 (134-434) L 06/24/18 06:00 MPV 8.7 fl (7.5-11.1) 06/24/18 06:00 CMP Sodium 139 mmol/L (136-145) 06/24/18 06:25 Potassium 3.9 mmol/L (3.5-5.1) 06/24/18 06:25 Chloride 104 mmol/L (98-107) 06/24/18 06:25 Carbon Dioxide 28 mmol/L (21-32) 06/24/18 06:25 Anion Gap 6 MMOL/L (8-16) L 06/24/18 06:25 BUN 18 mg/dL (7-18) 06/24/18 06:25 Creatinine 1.3 mg/dL (0.55-1.3) 06/24/18 06:25 Creat Clearance w eGFR 52.98 (>60) 06/24/18 06:25 Random Glucose 91 mg/dL (74-106) 06/24/18 06:25 Calcium 8.2 mg/dL (8.5-10.1) L 06/24/18 06:25 Total Bilirubin 1.1 mg/dL (0.2-1) H 06/24/18 06:25 AST 11 U/L (15-37) L 06/24/18 06:25 ALT 12 U/L (13-61) L 06/24/18 06:25 Alkaline Phosphatase 62 U/L (45-117) 06/24/18 06:25 Total Protein 6.1 g/dl (6.4-8.2) L 06/24/18 06:25 Albumin 2.6 g/dl (3.4-5.0) L 06/24/18 06:25 CARDIAC ENZYMES Troponin I < 0.02 ng/ml (0.00-0.05) 06/22/18 12:44 Current Medications Generic Name Dose Route Start Last Admin Trade Name Freq PRN Reason Stop Dose Admin Acetaminophen 650 mg 06/22/18 15:56 Tylenol - PO Q4H PRN FEVER Albuterol/Ipratropium 1 amp 06/22/18 18:31 06/23/18 21:19 Duoneb - NEB 1 amp Q4H PRN Administration SHORTNESS OF BREATH Clopidogrel Bisulfate 75 mg 06/23/18 10:00 06/24/18 09:58 Plavix - PO 75 mg DAILY FIDEL Administration Donepezil HCl 5 mg 06/23/18 10:00 06/24/18 09:59 Aricept - PO 5 mg DAILY FIDEL Administration Heparin Sodium (Porcine) 5,000 unit 06/22/18 22:00 06/24/18 21:28 Heparin - SQ 5,000 unit TID FIDEL Administration Piperacillin Sod/Tazobactam 50 mls @ 100 mls/hr 06/23/18 18:00 06/24/18 18:18 Sod 3.375 gm/ Dextrose IVPB 100 mls/hr Q8H-IV FIDEL Administration Protocol Losartan Potassium 25 mg 06/23/18 10:00 06/24/18 09:58 Cozaar - PO 25 mg DAILY FIDEL Administration Tamsulosin HCl 0.4 mg 06/23/18 13:33 06/24/18 08:55 Flomax - PO 0.4 mg DAILY@0830 [facility]IDEL Administration Tiotropium [place] 2 puff 06/23/18 10:00 06/24/18 10:00 Spiriva Respimat IH 2 puff DAILY FIDEL Administration Hepatic Panel Total Bilirubin 1.1 mg/dL (0.2-1) H 06/24/18 06:25 AST 11 U/L (15-37) L 06/24/18 06:25 ALT 12 U/L (13-61) L 06/24/18 06:25 Alkaline Phosphatase 62 U/L (45-117) 06/24/18 06:25 Albumin 2.6 g/dl (3.4-5.0) L 06/24/18 06:25 Home Medications Medication Instructions Recorded Tamsulosin HCl [Flomax -] 0.4 mg PO DAILY 10/21/15 Clopidogrel Bisulfate [Plavix] 75 mg PO DAILY 06/22/18 Donepezil HCl [Aricept -] 5 mg PO DAILY 06/22/18 Losartan Potassium [Cozaar -] 25 mg PO DAILY 06/22/18 Tiotropium [place] [Spiriva 2.5 mcg IH DAILY 06/22/18 Respimat] ASSESSMENT AND PLAN: Patient is a 82yo Uzbek-speaking Male with PMHx of HTN, COPD, BPH, mild dementia who presents today with a 1-day history of rectal pain, fever, and chills experienced last night. Hx of UTI a month ago which he was treated with Levaquin. In the ED pt was given Vancomycin 1gm and Zosyn 4.5 x1 each along side of 1LNS and tylenol. # s/p sepsis , leukocytosis due to sepsis improving , due to Urinary tract infection , continue IV ZOsyn , s/p recent cytoscopy. Dr. Montes for consult # Acute COPD Exacerbation on 2 liter oxygen at home . continue , Nebulizer treatment prn #Acute Dehydration s/p IVF # hx of BPH :continue Flomax # Hypertension: continue Lisinopril DVT px: Heparin sq Renal US and Bladder US
[2018-06-25] MEDS ORDERED: PIPERACILLIN/TAZOBACTAM 3.375 GM VIAL IVPB ONE ×3 (00:07→18:59)
[2018-06-25] MEDS ORDERED: DEXTROSE 5%-WATER - 50 ML IVPB ONE ×3 (00:07→18:59)
[2018-06-25] MEDS: PIPERACILLIN/TAZOB 3.375 GM 3.375 GM in DEXTROSE 5%-WATER - 50 ML IVPB SCH ×3 (01:26→19:06)
[2018-06-25] MEDS: HEPARIN NA (PORCINE) 5,000 UNITS/ML 1ML VIAL SQ SCH ×3 (06:15→23:09)
[2018-06-25 08:25] LABS: BASO % 0.4 % (0-2.0); EOS % 1.4 % (0-4.5); HEMOGLOBIN 11.3 GM/dL (11.7-16.9); LYMPH % 13.6 % (8-40); MCH 26.8 pg (25.7-33.7); MCHC 33.1 g/dl (32.0-35.9); MEAN PLT VOLUME 8.9 fl (7.5-11.1); MONO % 19.1 % (3.8-10.2); NEUT % 65.5 % (42.8-82.8); PLATELET COUNT 126 K/MM3 (134-434); RDW 14.4 % (11.9-15.9); WHITE BLOOD COUNT 4.6 K/mm3 (4.0-10.0)
[2018-06-25 08:53] LABS: ALBUMIN 2.5 g/dl (3.4-5.0); ALK PHOS 60 U/L (45-117); ANION GAP 6 MMOL/L (8-16); BILIRUBIN,TOTAL 0.6 mg/dL (0.2-1); BLOOD UREA NITROGEN 14 mg/dL (7-18); CALCIUM 8.2 mg/dL (8.5-10.1); CHLORIDE 105 mmol/L (98-107); CO2 26 mmol/L (21-32); GLUCOSE,RANDOM 88 mg/dL (74-106); POTASSIUM 3.9 mmol/L (3.5-5.1); SGOT/AST 16 U/L (15-37); SGPT/ALT 16 U/L (13-61); SODIUM 138 mmol/L (136-145); TOT PROT 6.1 g/dl (6.4-8.2)
--- NOTE | 2018-06-25 09:35 | PN ---
Physical Exam: SUBJECTIVE: Patient seen and examined at bedside- no acute events overnight; patient states he is still having pain on uriantion and is having slight rectal pain. patient had low grade fevers overnight OBJECTIVE: Vital Signs Period Temp Pulse Resp BP Sys/Paige Pulse Ox Last 24 Hr 97.9 F-99.4 F 87-98 20-20 113-141/58-72 95 GENERAL: The patient is awake, alert, and fully oriented, in no acute distress. EYES: PEERLA: EOMI; no scleral iterus . NECK: no JVD; no lymphadenopathy LUNGS: CTA B/L; no rales, rhonchi or wheezing HEART: Regular rate and rhythm, S1, S2 without murmur, rub or gallop. ABDOMEN: Soft, slight suprapubic tenderness upon palpation; non-distended +BS RECTAL: no fissures or external hemorrhoids; no internal hemorhhoids or masses slight tenderness/spasm during exam EXTREMITIES: 2+ pulses, warm, well-perfused, no edema. PSYCH: Normal mood, normal affect. SKIN: Warm, dry, normal turgor, no rashes or lesions noted Laboratory Results - last 24 hr 06/24/18 06/24/18 06/25/18 06:25 14:10 07:40 WBC 4.6 RBC 4.20 Hgb 11.3 L Hct 34.0 L MCV 81.0 MCH 26.8 MCHC 33.1 RDW 14.4 Plt Count 126 L MPV 8.9 Absolute Neuts (auto) 3.0 Neutrophils % 65.5 Lymphocytes % 13.6 D Monocytes % 19.1 H Eosinophils % 1.4 D Basophils % 0.4 Nucleated RBC % 0 ESR 107 H Sodium Potassium Chloride Carbon Dioxide Anion Gap BUN Creatinine Creat Clearance w eGFR Random Glucose Calcium Total Bilirubin AST ALT Alkaline Phosphatase Total Protein Albumin Urine Color Yellow Urine Appearance Clear Urine pH 6.0 Ur Specific [place] 1.024 Urine Protein 1+ H Urine Glucose (UA) Negative Urine Ketones Negative Urine Blood 2+ H Urine Nitrite Negative Urine Bilirubin Negative Urine Urobilinogen Negative Ur Leukocyte Esterase 1+ H Urine WBC (Auto) 50 Urine RBC (Auto) 3 06/25/18 07:40 WBC RBC Hgb Hct MCV MCH MCHC RDW Plt Count MPV Absolute Neuts (auto) Neutrophils % Lymphocytes % Monocytes % Eosinophils % Basophils % Nucleated RBC % ESR Sodium 138 Potassium 3.9 Chloride 105 Carbon Dioxide 26 Anion Gap 6 L BUN 14 Creatinine 1.0 Creat Clearance w eGFR > 60 Random Glucose 88 Calcium 8.2 L Total Bilirubin 0.6 AST 16 ALT 16 Alkaline Phosphatase 60 Total Protein 6.1 L Albumin 2.5 L Urine Color Urine Appearance Urine pH Ur Specific [place] Urine Protein Urine Glucose (UA) Urine Ketones Urine Blood Urine Nitrite Urine Bilirubin Urine Urobilinogen Ur Leukocyte Esterase Urine WBC (Auto) Urine RBC (Auto) Active Medications Generic Name Dose Route Start Last Admin Trade Name Freq PRN Reason Stop Dose Admin Acetaminophen 650 mg 06/22/18 15:56 Tylenol - PO Q4H PRN FEVER Albuterol/Ipratropium 1 amp 06/22/18 18:31 06/23/18 21:19 Duoneb - NEB 1 amp Q4H PRN Administration SHORTNESS OF BREATH Clopidogrel Bisulfate 75 mg 06/23/18 10:00 06/24/18 09:58 Plavix - PO 75 mg DAILY FIDEL Administration Donepezil HCl 5 mg 06/23/18 10:00 06/24/18 09:59 Aricept - PO 5 mg DAILY [facility]IDEL Administration Heparin Sodium (Porcine) 5,000 unit 06/22/18 22:00 06/25/18 06:15 Heparin - SQ 5,000 unit TID FIDEL Administration Piperacillin Sod/Tazobactam 50 mls @ 100 mls/hr 06/23/18 18:00 06/25/18 01:26 Sod 3.375 gm/ Dextrose IVPB 100 mls/hr Q8H-IV FIDEL Administration Protocol Losartan Potassium 25 mg 06/23/18 10:00 06/24/18 09:58 Cozaar - PO 25 mg DAILY [facility]IDEL Administration Tamsulosin HCl 0.4 mg 06/23/18 13:33 06/24/18 08:55 Flomax - PO 0.4 mg DAILY@0830 FIDEL Administration Tiotropium [place] 2 puff 06/23/18 10:00 06/24/18 10:00 Spiriva Respimat IH 2 puff DAILY [facility]IDEL Administration ASSESSMENT/PLAN: 82 y/o Estonian speaking M w/PMH of HTN, COPD, BPH, mild dementia admitted for sepsis secondary to UTI. -Sepsis secondary to UTI -U/A yesterday shows 1+ leuk esterase; 50 WBC- urine culture pending -c/w zosyn day 4 -ID consult -Dr Gil Nowak coming in today to see the patient as he is still having pain on urination -tylenol for fevers -Acute on Chronic COPD exacerbation -Uses 2L O2 at home. O2 supplementation to keep O2 saturation above 90% -Improved. No wheezing noted. -c/w spiriva and duonebs -HTN -c/w losartan 25 daily -Dementia -c/w aricept 5mg daily -BPH -c/w flomax 0.4 -renal/bladder U/S shows no evidence of hydronephrosis -CAD -c/w plavix 75 daily -DVT ppx -Heparin -FEN -no fluids currently -Monitor electrolytes -Regular diet Problem List - Problems (1) Dehydration Code(s): E86.0 - DEHYDRATION (2) Urinary tract infection Code(s): N39.0 - URINARY TRACT INFECTION, SITE NOT SPECIFIED Qualifiers: Urinary tract infection type: site unspecified Hematuria presence: without hematuria Qualified Code(s): N39.0 - Urinary tract infection, site not specified (3) BPH (benign prostatic hypertrophy) Code(s): N40.0 - BENIGN PROSTATIC HYPERPLASIA WITHOUT LOWER URINRY TRACT SYMP (4) Hypertension Code(s): I10 - ESSENTIAL (PRIMARY) HYPERTENSION Visit type - Emergency Visit Emergency Visit: Yes ED Registration Date: 06/22/18 Care time: The patient presented to the Emergency Department on the above date and was hospitalized for further evaluation of their emergent condition. - New Patient This patient is new to me today: Yes Date on this admission: 06/25/18 - Critical Care Critical Care patient: No
[2018-06-25] MEDS ORDERED: PT OWN MED DRAWER 7, Y5N ONE (10:49)
[2018-06-25] MEDS: TAMSULOSIN HCL 0.4 MG CAP PO SCH (10:57)
[2018-06-25] MEDS: DONEPEZIL HCL 5 MG TABLET (FP) PO SCH (10:57)
[2018-06-25] MEDS: LOSARTAN POTASSIUM 25 MG TABLET PO SCH (10:57)
[2018-06-25] MEDS: CLOPIDOGREL BISULFATE 75 MG TABLET (FP) PO SCH (10:57)
[2018-06-25] MEDS: TIOTROPIUM BROMIDE 2.5 MCG (SPIRIVA) RESPIMAT INHALER IH SCH (10:58)
--- NOTE | 2018-06-25 11:05 | EKG ---
Test Reason : Blood Pressure : / mmHG Vent. Rate : 112 BPM Atrial Rate : 112 BPM P-R Int : 118 ms QRS Dur : 080 ms QT Int : 306 ms P-R-T Axes : 069 030 044 degrees QTc Int : 417 ms SINUS TACHYCARDIA OTHERWISE NORMAL ECG WHEN COMPARED WITH ECG OF 21-OCT-2015 12:16, NO SIGNIFICANT CHANGE WAS FOUND Confirmed by NAREN ROBINS MD ([id number]) on 06/25/2018 11:04:57 AM Referred By: Confirmed By:NAREN ROBINS MD
--- NOTE | 2018-06-25 15:20 | ECHO ---
Name: BEKAH SWANSON Exam:Adult Echocardiogram Study Date: 06/25/2018 09:46 AM Age: 82 yrs Reason For Study: PHTN Height: 64 in Weight: 160 lb BSA: 1.8 m2 MMode/2D Measurements & Calculations LAV (MOD-bp): 43.5 ml Doppler Measurements & Calculations MV E max brook: 66.9 cm/sec Ao V2 max: 105.9 cm/sec MV A max brook: 82.5 cm/sec Ao max P.5 mmHg MV E/A: 0.81 MV dec time: 0.18 sec LV V1 max P.8 mmHg PA V2 max: 95.0 cm/sec LV V1 max: 82.9 cm/sec PA max P.6 mmHg Med Peak [place]: 6.6 cm/sec Med E/e': 10.1 Lat Peak [place]: 7.0 cm/sec Lat E/e': 9.6 Procedure A complete two-dimensional transthoracic echocardiogram was performed (2D, M-mode, Doppler and color flow Doppler). Technically limited study. Left Ventricle The left ventricle is normal in size. Left ventricular systolic function is grossly normal. Ejection Fraction = 55-60%. No regional wall motion abnormalities noted. Right Ventricle The right ventricle is normal size. The right ventricular systolic function is normal. Atria The left atrial size is normal. Right atrial size is normal. Mitral Valve The mitral valve is normal in structure and function. There is no mitral regurgitation noted. Tricuspid Valve The tricuspid valve is normal in structure and function. No tricuspid regurgitation. Aortic Valve The aortic valve is normal in structure and function. No aortic regurgitation is present. Pulmonic Valve The pulmonic valve is not well visualized. Great Vessels The aortic root is normal size. Pericardium/Pleura There is no pericardial effusion. Interpretation Summary Technically limited study The left ventricle is normal in size. Left ventricular systolic function is grossly normal. No regional wall motion abnormalities noted. Ejection Fraction = 55-60%. The right ventricular systolic function is normal. The left atrial size is normal. Right atrial size is normal. No significant valvular regurgitations are seen There is no pericardial effusion. Previous study is not available for comparison Asher Mullen MD 06/25/2018 03:20 PM
--- NOTE | 2018-06-25 15:41 | PN ---
Progress Note (short form) - Note Progress Note: suprapubic pain some midepigastric pain Vital Signs Period Temp Pulse Resp BP Sys/Paige Pulse Ox Last 24 Hr 97.9 F-100.5 F 87-98 18-20 116-141/58-72 95 cor-rrr lungs decreased bs at bases abd soft, mild suprapubic discofort, no perirectal lesions or pain no testicular swelling ext no edema CBC, BMP 06/25/18 07:40 06/25/18 07:40 urine culture cancelled- no sample received! esr 107/crp 18.9 Microbiology 06/22/18 12:50 Blood - Peripheral Venous Blood Culture - Preliminary NO GROWTH OBTAINED AFTER 72 HOURS, INCUBATION TO CONTINUE FOR 2 DAYS. 06/22/18 03:44 Blood - Peripheral Venous Blood Culture - Preliminary NO GROWTH OBTAINED AFTER 72 HOURS, INCUBATION TO CONTINUE FOR 2 DAYS. 06/24/18 14:10 Urine - Urine Clean Catch Urine Culture - Final NO GROWTH OBTAINED Active Medications Acetaminophen (Tylenol -) 650 mg PO Q4H PRN PRN Reason: FEVER Albuterol/Ipratropium (Duoneb -) 1 amp NEB Q4H PRN PRN Reason: SHORTNESS OF BREATH Last Admin: 06/23/18 21:19 Dose: 1 amp Clopidogrel Bisulfate (Plavix -) 75 mg PO DAILY [facility] Last Admin: 06/24/18 09:58 Dose: 75 mg Donepezil HCl (Aricept -) 5 mg PO DAILY [facility] Last Admin: 06/24/18 09:59 Dose: 5 mg Heparin Sodium (Porcine) (Heparin -) 5,000 unit SQ TID [facility] Last Admin: 06/24/18 05:49 Dose: 5,000 unit Piperacillin Sod/Tazobactam (Sod 3.375 gm/ Dextrose) 50 mls @ 100 mls/hr IVPB Q8H-IV [facility]; Protocol Last Admin: 06/24/18 09:57 Dose: 100 mls/hr Losartan Potassium (Cozaar -) 25 mg PO DAILY [facility] Last Admin: 06/24/18 09:58 Dose: 25 mg Tamsulosin HCl (Flomax -) 0.4 mg PO DAILY@0830 [facility] Last Admin: 06/24/18 08:55 Dose: 0.4 mg Tiotropium [place] (Spiriva Respimat) 2 puff IH DAILY [facility] Last Admin: 06/24/18 10:00 Dose: 2 puff sonogram kidney/bladder- unremarkable a/p low grade fever, elevated inflammatory markers- would get ct scan abdomen and pelvis ?rheumatologic disease- consider workup- repeat esr/crp in am UTI-uunfortunately no urine culture was sent continue zosyn leidy resolved
--- NOTE | 2018-06-25 15:58 | CON.GU ---
Consult Consult Specialty:: urology Reason for Consultation:: uti - History of Present Illness Chief Complaint: uti History of Present Illness: Patient is an 82 year old male with history of bph who is admitted with uti and dehydration. Patient is currently voiding well with moderate frequency and urgency. Patient denies gross hematuria or nausea and vomiting. - History Source History Provided By: Patient Limitations to Obtaining History: No Limitations - Alcohol/Substance Use Hx Alcohol Use: No - Smoking History Smoking history: Former smoker Have you smoked in the past 12 months: No Home Medications - Allergies Allergies/Adverse Reactions: Allergies Allergy/AdvReac Type Severity Reaction Status Date / Time aspirin Allergy Severe Difficulty Verified 06/22/18 12:01 Breathing - Home Medications Home Medications: Ambulatory Orders Tamsulosin HCl [Flomax -] 0.4 mg PO DAILY 10/21/15 Clopidogrel Bisulfate [Plavix] 75 mg PO DAILY 06/22/18 Donepezil HCl [Aricept -] 5 mg PO DAILY 06/22/18 Losartan Potassium [Cozaar -] 25 mg PO DAILY 06/22/18 Tiotropium [place] [Spiriva Respimat] 2.5 mcg IH DAILY 06/22/18 Physical Exam- Vital Signs: Vital Signs Temperature 98.2 F 06/25/18 14:39 Pulse Rate 89 06/25/18 13:52 Respiratory Rate 18 06/25/18 13:52 Blood Pressure 119/69 06/25/18 13:52 O2 Sat by Pulse Oximetry (%) 95 06/24/18 21:00 Constitutional: Yes: Well Nourished, No Distress, Calm Eyes: Yes: WNL, Conjunctiva Clear, EOM Intact, PERRL HENT: Yes: WNL, Atraumatic Neck: Yes: WNL, Supple, Trachea Midline Cardiovascular: Yes: WNL Respiratory: Yes: WNL Gastrointestinal: Yes: WNL, Normal Bowel Sounds, Soft Renal/: Yes: WNL Kidneys: Yes: WNL Pelvis: Yes: WNL, Bladder Non Palpable Testicles: Yes: WNL Scrotum: Yes: WNL Penis: Yes: WNL Prostate Exam: Yes: Asymmetrical Labs: CBC, BMP 06/25/18 07:40 06/25/18 07:40 Imaging - Results Ultrasound: Report Reviewed Assessment/Plan imp bph uti plan antibiotics as per ID continue flomax will follow-up as outpatient
--- NOTE | 2018-06-25 18:43 | PN ---
Teaching Attending Note Name of Resident: Leticia Orr ATTENDING PHYSICIAN STATEMENT I saw and evaluated the patient. I reviewed the resident's note and discussed the case with the resident. I agree with the resident's findings and plan as documented. SUBJECTIVE: Patient is comfortable but still having rectal pain 5/10. OBJECTIVE: Vital Signs Temperature 98.2 F 06/25/18 14:39 Pulse Rate 89 06/25/18 13:52 Respiratory Rate 18 06/25/18 13:52 Blood Pressure 119/69 06/25/18 13:52 O2 Sat by Pulse Oximetry (%) 95 06/24/18 21:00 GENERAL: The patient is awake, alert, and fully oriented, in no acute distress. HEAD: Normal with no signs of trauma. EYES: PERRL, extraocular movements intact, sclera anicteric, conjunctiva clear. ENT: Ears normal, oropharynx clear without exudates, moist mucous membranes. NECK: Trachea midline, full range of motion, supple. LUNGS: Breath sounds equal, clear to auscultation bilaterally, no wheezes, no crackles, no accessory muscle use. HEART: Regular rate and rhythm, S1, S2 without murmur, rub or gallop. ABDOMEN: Soft, nontender, nondistended, normoactive bowel sounds, no guarding, no rebound, no hepatosplenomegaly, no masses. EXTREMITIES: 2+ pulses, warm, well-perfused, no edema. NEUROLOGICAL: Cranial nerves II through XII grossly intact. Normal speech, gait not observed. PSYCH: Normal mood, normal affect. SKIN: Warm, dry, normal turgor, no rashes or lesions noted. : rectal exam , milt tenderness but no fissure or hemorroids. CBCD WBC 4.6 K/mm3 (4.0-10.0) 06/25/18 07:40 RBC 4.20 M/mm3 (4.00-5.60) 06/25/18 07:40 Hgb 11.3 GM/dL (11.7-16.9) L 06/25/18 07:40 Hct 34.0 % (35.4-49) L 06/25/18 07:40 MCV 81.0 fl (80-96) 06/25/18 07:40 MCHC 33.1 g/dl (32.0-35.9) 06/25/18 07:40 RDW 14.4 % (11.9-15.9) 06/25/18 07:40 Plt Count 126 K/MM3 (134-434) L 06/25/18 07:40 MPV 8.9 fl (7.5-11.1) 06/25/18 07:40 CMP Sodium 138 mmol/L (136-145) 06/25/18 07:40 Potassium 3.9 mmol/L (3.5-5.1) 06/25/18 07:40 Chloride 105 mmol/L (98-107) 06/25/18 07:40 Carbon Dioxide 26 mmol/L (21-32) 06/25/18 07:40 Anion Gap 6 MMOL/L (8-16) L 06/25/18 07:40 BUN 14 mg/dL (7-18) 06/25/18 07:40 Creatinine 1.0 mg/dL (0.55-1.3) 06/25/18 07:40 Creat Clearance w eGFR > 60 (>60) 06/25/18 07:40 Random Glucose 88 mg/dL (74-106) 06/25/18 07:40 Calcium 8.2 mg/dL (8.5-10.1) L 06/25/18 07:40 Total Bilirubin 0.6 mg/dL (0.2-1) 06/25/18 07:40 AST 16 U/L (15-37) 06/25/18 07:40 ALT 16 U/L (13-61) 06/25/18 07:40 Alkaline Phosphatase 60 U/L (45-117) 06/25/18 07:40 Total Protein 6.1 g/dl (6.4-8.2) L 06/25/18 07:40 Albumin 2.5 g/dl (3.4-5.0) L 06/25/18 07:40 CARDIAC ENZYMES Troponin I < 0.02 ng/ml (0.00-0.05) 06/22/18 12:44 Current Medications Generic Name Dose Route Start Last Admin Trade Name Freq PRN Reason Stop Dose Admin Acetaminophen 650 mg 06/22/18 15:56 Tylenol - PO Q4H PRN FEVER Albuterol/Ipratropium 1 amp 06/22/18 18:31 06/23/18 21:19 Duoneb - NEB 1 amp Q4H PRN Administration SHORTNESS OF BREATH Clopidogrel Bisulfate 75 mg 06/23/18 10:00 06/25/18 10:57 Plavix - PO 75 mg DAILY [facility] Administration Donepezil HCl 5 mg 06/23/18 10:00 06/25/18 10:57 Aricept - PO 5 mg DAILY [facility] Administration Heparin Sodium (Porcine) 5,000 unit 06/22/18 22:00 06/25/18 06:15 Heparin - SQ 5,000 unit TID [facility] Administration Piperacillin Sod/Tazobactam 50 mls @ 100 mls/hr 06/23/18 18:00 06/25/18 10:58 Sod 3.375 gm/ Dextrose IVPB 100 mls/hr Q8H-IV [facility] Administration Protocol Losartan Potassium 25 mg 06/23/18 10:00 06/25/18 10:57 Cozaar - PO 25 mg DAILY [facility] Administration Tamsulosin HCl 0.4 mg 06/23/18 13:33 06/25/18 10:57 Flomax - PO 0.4 mg DAILY@0830 [facility] Administration Tiotropium [place] 2 puff 06/23/18 10:00 06/25/18 10:58 Spiriva Respimat IH 2 puff DAILY [facility] Administration Home Medications Medication Instructions Recorded Tamsulosin HCl [Flomax -] 0.4 mg PO DAILY 10/21/15 Clopidogrel Bisulfate [Plavix] 75 mg PO DAILY 06/22/18 Donepezil HCl [Aricept -] 5 mg PO DAILY 06/22/18 Losartan Potassium [Cozaar -] 25 mg PO DAILY 06/22/18 Tiotropium [place] [Spiriva 2.5 mcg IH DAILY 06/22/18 Respimat] ASSESSMENT AND PLAN: Patient is a 82yo [place]-speaking Male with PMHx of HTN, COPD, BPH, mild dementia who presents today with a 1-day history of rectal pain, fever, and chills experienced last night. Hx of UTI a month ago which he was treated with Levaquin. In the ED pt was given Vancomycin 1gm and Zosyn 4.5 x1 each along side of 1LNS and tylenol. # s/p sepsis , leukocytosis due to sepsis improving , due to Urinary tract infection , continue IV ZOsyn , s/p recent cytoscopy. Dr. Elmasry for consult # Elevated ESR/C-reactive protein will get CT abdomen pelvis to r/o abscess # Acute COPD Exacerbation on 2 liter oxygen at home . continue , Nebulizer treatment prn #Acute Dehydration s/p IVF # hx of BPH :continue Flomax # Hypertension: continue Lisinopril DVT px: Heparin sq Renal US and Bladder US: negative
[2018-06-25] MEDS: ALBUTEROL SO4 2.5/IPRATROPIUM 0.5 INH SOL 3 ML VIAL.NEB. NEB PRN (20:52)
[2018-06-26] MEDS ORDERED: DEXTROSE 5%-WATER - 50 ML IVPB ONE ×3 (02:01→17:23)
[2018-06-26] MEDS ORDERED: PIPERACILLIN/TAZOBACTAM 3.375 GM VIAL IVPB ONE ×3 (02:01→17:23)
[2018-06-26] MEDS: PIPERACILLIN/TAZOB 3.375 GM 3.375 GM in DEXTROSE 5%-WATER - 50 ML IVPB SCH ×3 (02:36→17:57)
[2018-06-26] MEDS: HEPARIN NA (PORCINE) 5,000 UNITS/ML 1ML VIAL SQ SCH ×3 (06:53→21:17)
[2018-06-26 07:14] LABS: HEMATOCRIT 32.6 % (35.4-49); MCH 27.4 pg (25.7-33.7); MCHC 33.8 g/dl (32.0-35.9); MEAN CELL VOLUME 81.2 fl (80-96); MEAN PLT VOLUME 8.3 fl (7.5-11.1); PLATELET COUNT 131 K/MM3 (134-434); RBC 4.01 M/mm3 (4.00-5.60); RDW 14.5 % (11.9-15.9); WHITE BLOOD COUNT 3.9 K/mm3 (4.0-10.0)
[2018-06-26 08:17] LABS: ANION GAP 7 MMOL/L (8-16); BLOOD UREA NITROGEN 13 mg/dL (7-18); CALCIUM 8.1 mg/dL (8.5-10.1); CHLORIDE 102 mmol/L (98-107); CO2 27 mmol/L (21-32); CREATININE 1.3 mg/dL (0.55-1.3); GLUCOSE,RANDOM 90 mg/dL (74-106); MAGNESIUM 2.2 mg/dL (1.8-2.4); PHOSPHOROUS 3.6 mg/dL (2.5-4.9); POTASSIUM 3.9 mmol/L (3.5-5.1); SODIUM 136 mmol/L (136-145)
--- NOTE | 2018-06-26 09:41 | PN ---
Teaching Attending Note Name of Resident: Leticia Orr ATTENDING PHYSICIAN STATEMENT I saw and evaluated the patient. I reviewed the resident's note and discussed the case with the resident. I agree with the resident's findings and plan as documented. SUBJECTIVE: Patient is feeling better but continues to have rectal pain. No fever or chills OBJECTIVE: Vital Signs Temperature 98.7 F 06/26/18 06:00 Pulse Rate 85 06/26/18 06:00 Respiratory Rate 18 06/26/18 06:00 Blood Pressure 150/72 06/26/18 06:00 O2 Sat by Pulse Oximetry (%) 95 06/25/18 21:00 GENERAL: The patient is awake, alert, and fully oriented, in no acute distress. HEAD: Normal with no signs of trauma. EYES: PERRL, extraocular movements intact, sclera anicteric, conjunctiva clear. ENT: Ears normal, oropharynx clear without exudates, moist mucous membranes. NECK: Trachea midline, full range of motion, supple. LUNGS: Breath sounds equal, clear to auscultation bilaterally, no wheezes, no crackles, no accessory muscle use. HEART: Regular rate and rhythm, S1, S2 without murmur, rub or gallop. ABDOMEN: Soft, nontender, normally distended, normoactive bowel sounds, no guarding, no rebound, no hepatosplenomegaly, no masses appreciated. EXTREMITIES: 2+ pulses, warm, well-perfused, no edema. NEUROLOGICAL: Cranial nerves II through XII grossly intact. Normal speech, gait not observed. PSYCH: Normal mood, normal affect. SKIN: Warm, dry, normal turgor, no rashes or lesions noted. : rectal exam , mild tenderness but no fissure or hemorroids noted. CBCD WBC 3.9 K/mm3 (4.0-10.0) L 06/26/18 06:30 RBC 4.01 M/mm3 (4.00-5.60) 06/26/18 06:30 Hgb 11.0 GM/dL (11.7-16.9) L 06/26/18 06:30 Hct 32.6 % (35.4-49) L 06/26/18 06:30 MCV 81.2 fl (80-96) 06/26/18 06:30 MCHC 33.8 g/dl (32.0-35.9) 06/26/18 06:30 RDW 14.5 % (11.9-15.9) 06/26/18 06:30 Plt Count 131 K/MM3 (134-434) L 06/26/18 06:30 MPV 8.3 fl (7.5-11.1) 06/26/18 06:30 CMP Sodium 136 mmol/L (136-145) 06/26/18 06:30 Potassium 3.9 mmol/L (3.5-5.1) 06/26/18 06:30 Chloride 102 mmol/L (98-107) 06/26/18 06:30 Carbon Dioxide 27 mmol/L (21-32) 06/26/18 06:30 Anion Gap 7 MMOL/L (8-16) L 06/26/18 06:30 BUN 13 mg/dL (7-18) 06/26/18 06:30 Creatinine 1.3 mg/dL (0.55-1.3) 06/26/18 06:30 Creat Clearance w eGFR 52.98 (>60) 06/26/18 06:30 Random Glucose 90 mg/dL (74-106) 06/26/18 06:30 Calcium 8.1 mg/dL (8.5-10.1) L 06/26/18 06:30 Total Bilirubin 0.6 mg/dL (0.2-1) 06/25/18 07:40 AST 16 U/L (15-37) 06/25/18 07:40 ALT 16 U/L (13-61) 06/25/18 07:40 Alkaline Phosphatase 60 U/L (45-117) 06/25/18 07:40 Total Protein 6.1 g/dl (6.4-8.2) L 06/25/18 07:40 Albumin 2.5 g/dl (3.4-5.0) L 06/25/18 07:40 CARDIAC ENZYMES Troponin I < 0.02 ng/ml (0.00-0.05) 06/22/18 12:44 Current Medications Generic Name Dose Route Start Last Admin Trade Name Freq PRN Reason Stop Dose Admin Acetaminophen 650 mg 06/22/18 15:56 Tylenol - PO Q4H PRN FEVER Albuterol/Ipratropium 1 amp 06/22/18 18:31 06/25/18 20:52 Duoneb - NEB 1 amp Q4H PRN Administration SHORTNESS OF BREATH Clopidogrel Bisulfate 75 mg 06/23/18 10:00 06/25/18 10:57 Plavix - PO 75 mg DAILY [facility] Administration Donepezil HCl 5 mg 06/23/18 10:00 06/25/18 10:57 Aricept - PO 5 mg DAILY [facility] Administration Heparin Sodium (Porcine) 5,000 unit 06/22/18 22:00 06/26/18 06:53 Heparin - SQ 5,000 unit TID [facility] Administration Piperacillin Sod/Tazobactam 50 mls @ 100 mls/hr 06/23/18 18:00 06/26/18 02:36 Sod 3.375 gm/ Dextrose IVPB 100 mls/hr Q8H-IV [facility] Administration Protocol Losartan Potassium 25 mg 06/23/18 10:00 06/25/18 10:57 Cozaar - PO 25 mg DAILY [facility] Administration Tamsulosin HCl 0.4 mg 06/23/18 13:33 06/25/18 10:57 Flomax - PO 0.4 mg DAILY@0830 [facility] Administration Tiotropium [place] 2 puff 06/23/18 10:00 06/25/18 10:58 Spiriva Respimat IH 2 puff DAILY [facility] Administration Home Medications Medication Instructions Recorded Tamsulosin HCl [Flomax -] 0.4 mg PO DAILY 10/21/15 Clopidogrel Bisulfate [Plavix] 75 mg PO DAILY 06/22/18 Donepezil HCl [Aricept -] 5 mg PO DAILY 06/22/18 Losartan Potassium [Cozaar -] 25 mg PO DAILY 06/22/18 Tiotropium [place] [Spiriva 2.5 mcg IH DAILY 06/22/18 Respimat] Laboratory Tests 06/24/18 06/24/18 06/26/18 06:25 06:25 06:30 ESR 107 H C-Reactive Protein 18.9 H 9.6 H 06/26/18 06:30 ESR 88 H C-Reactive Protein Laboratory Tests 06/22/18 06/23/18 06/24/18 12:50 07:00 06:25 ESR Creatinine 1.2 1.4 H 1.3 C-Reactive Protein 18.9 H 06/24/18 06/25/18 06/26/18 06:25 07:40 06:30 ESR 107 H Creatinine 1.0 1.3 C-Reactive Protein 06/26/18 06/26/18 06:30 06:30 ESR 88 H Creatinine C-Reactive Protein 9.6 H ASSESSMENT AND PLAN: Patient is a 82yo [place]-speaking Male with PMHx of HTN, COPD, BPH, mild dementia who presents today with a 1-day history of rectal pain, fever, and chills experienced last night. Hx of UTI a month ago which he was treated with Levaquin. In the ED pt was given Vancomycin 1gm and Zosyn 4.5 x1 each along side of 1LNS and tylenol. # s/p sepsis , leukocytosis due to Urinary tract infection/proctitis improving, continue IV ZOsyn as per ID, s/p recent cytoscopy. Upon discharge patient needs to follow up with . # Elevated ESR/C-reactive protein , trending down . s/p CT abdomen and Pelvis : Moderate size hiatal hernia; prominent cyst with the right lobe of the Liver measuring 9.2cm. B/L fat containing b/l inguinal, Enlarged prostate; heterogenous measuring 6.4cm no adenopathy. Renal US and Bladder US: negative follow up ESR/CRP level for am # Acute COPD Exacerbation on 2 liter oxygen at home . continue , Nebulizer treatment prn # ARF: Monitor , 1.3 today baseline of 1.0 , will hydrate the patient. patient received IV contrast for the CT of abdomen and pelvis. monitor. #Acute Dehydration s/p IVF # hx of BPH :continue Flomax # Hypertension: continue Lisinopril DVT px: Heparin sq
[2018-06-26] MEDS: LOSARTAN POTASSIUM 25 MG TABLET PO SCH (10:29)
[2018-06-26] MEDS: DONEPEZIL HCL 5 MG TABLET (FP) PO SCH (10:29)
[2018-06-26] MEDS: TAMSULOSIN HCL 0.4 MG CAP PO SCH (10:29)
[2018-06-26] MEDS: CLOPIDOGREL BISULFATE 75 MG TABLET (FP) PO SCH (10:29)
[2018-06-26] MEDS: TIOTROPIUM BROMIDE 2.5 MCG (SPIRIVA) RESPIMAT INHALER IH SCH (10:32)
--- NOTE | 2018-06-26 12:58 | PN ---
Physical Exam: SUBJECTIVE: Patient seen and examined at bedside- no acute events overnight; patient states that he is feeling slightly better though is still having some pain on urination; patient had low grade fever of 100.2- denies any CP/SOB/N/V OBJECTIVE: Vital Signs Period Temp Pulse Resp BP Sys/Paige Pulse Ox Last 24 Hr 97.8 F-100.5 F 78-93 17-18 118-150/65-74 95-96 GENERAL: The patient is awake, alert, and fully oriented, in no acute distress. EYES: PEERLA; EOMI; no scleral icterus. . NECK: no JVD no lymphadenopathy. LUNGS: CTA B/L; no rales,rhonchi or wheezing HEART: Regular rate and rhythm, S1, S2 without murmur, rub or gallop. ABDOMEN: Soft, slight suprapubic tenderness; + BS in all 4 quadrants EXTREMITIES: 2+ pulses, warm, well-perfused, no edema. PSYCH: Normal mood, normal affect. SKIN: Warm, dry, normal turgor, no rashes or lesions noted Laboratory Results - last 24 hr 06/26/18 06/26/18 06/26/18 06:30 06:30 06:30 WBC 3.9 L RBC 4.01 Hgb 11.0 L Hct 32.6 L MCV 81.2 MCH 27.4 MCHC 33.8 RDW 14.5 Plt Count 131 L MPV 8.3 ESR Sodium 136 Potassium 3.9 Chloride 102 Carbon Dioxide 27 Anion Gap 7 L BUN 13 Creatinine 1.3 Creat Clearance w eGFR 52.98 Random Glucose 90 Calcium 8.1 L Phosphorus 3.6 Magnesium 2.2 C-Reactive Protein 9.6 H 06/26/18 06:30 WBC RBC Hgb Hct MCV MCH MCHC RDW Plt Count MPV ESR 88 H Sodium Potassium Chloride Carbon Dioxide Anion Gap BUN Creatinine Creat Clearance w eGFR Random Glucose Calcium Phosphorus Magnesium C-Reactive Protein Active Medications Generic Name Dose Route Start Last Admin Trade Name Freq PRN Reason Stop Dose Admin Acetaminophen 650 mg 06/22/18 15:56 Tylenol - PO Q4H PRN FEVER Albuterol/Ipratropium 1 amp 06/22/18 18:31 06/25/18 20:52 Duoneb - NEB 1 amp Q4H PRN Administration SHORTNESS OF BREATH Clopidogrel Bisulfate 75 mg 06/23/18 10:00 06/26/18 10:29 Plavix - PO 75 mg DAILY [facility] Administration Donepezil HCl 5 mg 06/23/18 10:00 06/26/18 10:29 Aricept - PO 5 mg DAILY [facility] Administration Heparin Sodium (Porcine) 5,000 unit 06/22/18 22:00 06/26/18 06:53 Heparin - SQ 5,000 unit TID [facility] Administration Piperacillin Sod/Tazobactam 50 mls @ 100 mls/hr 06/23/18 18:00 06/26/18 10:29 Sod 3.375 gm/ Dextrose IVPB 100 mls/hr Q8H-IV [facility] Administration Protocol Losartan Potassium 25 mg 06/23/18 10:00 06/26/18 10:29 Cozaar - PO 25 mg DAILY [facility] Administration Tamsulosin HCl 0.4 mg 06/23/18 13:33 06/26/18 10:29 Flomax - PO 0.4 mg DAILY@0830 [facility] Administration Tiotropium [place] 2 puff 06/23/18 10:00 06/26/18 10:32 Spiriva Respimat IH 2 puff DAILY [facility] Administration ASSESSMENT/PLAN: 82 y/o French speaking M w/PMH of HTN, COPD, BPH, mild dementia admitted for sepsis secondary to UTI. -Sepsis secondary to UTI -c/w zosyn day 5 -ID on boarf -Dr Gil Nowak saw patient; recommended to c/w abx and to follow up as outpatient and continue with flomax -CT ab/pelvis being done today since ESR and CRP are still elevated- want to look for any abscess -tylenol for fevers -Acute on Chronic COPD exacerbation -Uses 2L O2 at home. O2 supplementation to keep O2 saturation above 90% -Improved. No wheezing noted. -c/w spiriva and duonebs -HTN -c/w losartan 25 daily -Dementia -c/w aricept 5mg daily -BPH -c/w flomax 0.4 -renal/bladder U/S shows no evidence of hydronephrosis -CAD -c/w plavix 75 daily -DVT ppx -Heparin -FEN -no fluids currently -Monitor electrolytes -Regular diet Problem List - Problems (1) Dehydration Code(s): E86.0 - DEHYDRATION (2) Urinary tract infection Code(s): N39.0 - URINARY TRACT INFECTION, SITE NOT SPECIFIED Qualifiers: Urinary tract infection type: site unspecified Hematuria presence: without hematuria Qualified Code(s): N39.0 - Urinary tract infection, site not specified (3) BPH (benign prostatic hypertrophy) Code(s): N40.0 - BENIGN PROSTATIC HYPERPLASIA WITHOUT LOWER URINRY TRACT SYMP (4) Hypertension Code(s): I10 - ESSENTIAL (PRIMARY) HYPERTENSION Visit type - Emergency Visit Emergency Visit: Yes ED Registration Date: 06/22/18 Care time: The patient presented to the Emergency Department on the above date and was hospitalized for further evaluation of their emergent condition. - New Patient This patient is new to me today: No - Critical Care Critical Care patient: No
[2018-06-26] MEDS ORDERED: SODIUM CHLORIDE 1,000 ML IV SCH (17:00)
[2018-06-27] MEDS ORDERED: DEXTROSE 5%-WATER - 50 ML IVPB ONE ×3 (01:25→18:01)
[2018-06-27] MEDS ORDERED: PIPERACILLIN/TAZOBACTAM 3.375 GM VIAL IVPB ONE ×3 (01:25→18:01)
[2018-06-27] MEDS: PIPERACILLIN/TAZOB 3.375 GM 3.375 GM in DEXTROSE 5%-WATER - 50 ML IVPB SCH ×3 (01:27→18:07)
[2018-06-27] MEDS: HEPARIN NA (PORCINE) 5,000 UNITS/ML 1ML VIAL SQ SCH ×3 (06:05→21:10)
[2018-06-27 07:16] LABS: BASO % 0.6 % (0-2.0); EOS % 1.9 % (0-4.5); HEMOGLOBIN 11.6 GM/dL (11.7-16.9); LYMPH % 12.3 % (8-40); MCH 26.9 pg (25.7-33.7); MCHC 33.2 g/dl (32.0-35.9); MEAN CELL VOLUME 81.2 fl (80-96); MEAN PLT VOLUME 8.3 fl (7.5-11.1); MONO % 25.6 % (3.8-10.2); NEUT % 59.6 % (42.8-82.8); PLATELET COUNT 137 K/MM3 (134-434); RBC 4.31 M/mm3 (4.00-5.60); RDW 14.2 % (11.9-15.9); WHITE BLOOD COUNT 4.3 K/mm3 (4.0-10.0)
[2018-06-27 07:51] LABS: ALBUMIN 2.6 g/dl (3.4-5.0); ALK PHOS 55 U/L (45-117); ANION GAP 7 MMOL/L (8-16); BILIRUBIN,TOTAL 0.5 mg/dL (0.2-1); BLOOD UREA NITROGEN 12 mg/dL (7-18); CALCIUM 8.4 mg/dL (8.5-10.1); CHLORIDE 104 mmol/L (98-107); CO2 27 mmol/L (21-32); CREATININE 1.2 mg/dL (0.55-1.3); GLUCOSE,RANDOM 88 mg/dL (74-106); MAGNESIUM 2.4 mg/dL (1.8-2.4); PHOSPHOROUS 3.6 mg/dL (2.5-4.9); SGOT/AST 47 U/L (15-37); SGPT/ALT 46 U/L (13-61); SODIUM 138 mmol/L (136-145); TOT PROT 6.2 g/dl (6.4-8.2)
[2018-06-27 09:43] LABS: ERYTHROCYTE SEDIMENTATION RATE 82 mm/hr (0-20)
[2018-06-27] MEDS: DONEPEZIL HCL 5 MG TABLET (FP) PO SCH (10:30)
[2018-06-27] MEDS: LOSARTAN POTASSIUM 25 MG TABLET PO SCH (10:30)
[2018-06-27] MEDS: CLOPIDOGREL BISULFATE 75 MG TABLET (FP) PO SCH (10:30)
[2018-06-27] MEDS: TAMSULOSIN HCL 0.4 MG CAP PO SCH (10:30)
[2018-06-27] MEDS: TIOTROPIUM BROMIDE 2.5 MCG (SPIRIVA) RESPIMAT INHALER IH SCH (10:30)
[2018-06-27 12:06] LABS: ANISOCYTOSIS 0; HELMET CELLS 0; HOWELL-JOLLY BODIES 0; MACROCYTOSIS 0; OVALOCYTE 0; PLATELET ESTIMATE DECREASED; ROULEAU 0; SICKELED CELLS 0; TARGET CELLS 0; TEAR DROP CELLS 0; TOXIC GRANULATION 0
--- NOTE | 2018-06-27 13:38 | PN ---
Addendum entered and electronically signed by Leticia Orr, RESIDENT 16:06: patient will need extra hours for his home health aid at home- he will be needing daily IV infusion antibiotics and will need his aid to accompany him. He also will need the aid for extra hours given his medical problems which include dementia , COPD, high blood pressure and he will need extra care. thank you. Original Note: Physical Exam: SUBJECTIVE: Patient seen and examined at bedside- no acute evevnts overnight' patient states he still is having slight urinary pain however denies any blood in urine; denies CP/SOB/N/V OBJECTIVE: Vital Signs Period Temp Pulse Resp BP Sys/Paige Pulse Ox Last 24 Hr 97.8 F-99.7 F 79-103 18-20 113-138/57-69 96-96 GENERAL: The patient is awake, alert, and fully oriented, in no acute distress. EYES: PEERLA: EOMI no scleral icterus. NECK: no JVD; no lymphadenopathy LUNGS:CTA B/L; no rales, rhonchi or wheezing HEART: Regular rate and rhythm, S1, S2 without murmur, rub or gallop. ABDOMEN: Soft, slight suprapubic tenderness upon palpation EXTREMITIES: 2+ pulses, warm, well-perfused, trace edema. PSYCH: Normal mood, normal affect. SKIN: Warm, dry, normal turgor, no rashes or lesions noted Laboratory Results - last 24 hr 06/27/18 06/27/18 06/27/18 06:20 06:20 06:20 WBC 4.3 RBC 4.31 Hgb 11.6 L Hct 35.0 L MCV 81.2 MCH 26.9 MCHC 33.2 RDW 14.2 Plt Count 137 MPV 8.3 Absolute Neuts (auto) 2.6 Neutrophils % 59.6 Neutrophils % (Manual) 65.7 Band Neutrophils % 3.0 Lymphocytes % 12.3 Lymphocytes % (Manual) 10.1 Monocytes % 25.6 H Monocytes % (Manual) 19 H Eosinophils % 1.9 Eosinophils % (Manual) 1.0 Basophils % 0.6 Basophils % (Manual) 0.0 Myelocytes % (Man) 0 Promyelocytes % (Man) 0 Blast Cells % (Manual) 0 Nucleated RBC % 0 Metamyelocytes 0 Hypochromia 0 Toxic Granulation 0 Dohle Bodies 0 Platelet Estimate Decreased Polychromasia 0 Poikilocytosis 0 Basophilic Stippling 0 Anisocytosis 0 Microcytosis 0 Macrocytosis 0 Spherocytes 0 Sickle Cells 0 Target Cells 0 Tear Drop Cells 0 Ovalocytes 0 Stomatocytes 0 Helmet Cells 0 [place] Bodies 0 [place] Rings 0 Aureliano Cells 0 Acanthocytes (Spur) 0 Rouleaux 0 Fragmented RBCs 0 Schistocytes 0 ESR 82 H Sodium 138 Potassium 4.0 Chloride 104 Carbon Dioxide 27 Anion Gap 7 L BUN 12 Creatinine 1.2 Creat Clearance w eGFR 58.11 Random Glucose 88 Calcium 8.4 L Phosphorus 3.6 Magnesium 2.4 Total Bilirubin 0.5 AST 47 H ALT 46 Alkaline Phosphatase 55 C-Reactive Protein 8.4 H Total Protein 6.2 L Albumin 2.6 L Active Medications Generic Name Dose Route Start Last Admin Trade Name Freq PRN Reason Stop Dose Admin Acetaminophen 650 mg 06/22/18 15:56 06/26/18 21:16 Tylenol - PO 650 mg Q4H PRN Administration FEVER Albuterol/Ipratropium 1 amp 06/22/18 18:31 06/25/18 20:52 Duoneb - NEB 1 amp Q4H PRN Administration SHORTNESS OF BREATH Clopidogrel Bisulfate 75 mg 06/23/18 10:00 06/27/18 10:30 Plavix - PO 75 mg DAILY FIDEL Administration Donepezil HCl 5 mg 06/23/18 10:00 06/27/18 10:30 Aricept - PO 5 mg DAILY FIDEL Administration Heparin Sodium (Porcine) 5,000 unit 06/22/18 22:00 06/27/18 06:05 Heparin - SQ Not Given TID FIDEL Piperacillin Sod/Tazobactam 50 mls @ 100 mls/hr 06/23/18 18:00 06/27/18 10:29 Sod 3.375 gm/ Dextrose IVPB 100 mls/hr Q8H-IV FIDEL Administration Protocol Sodium Chloride 1,000 mls @ 50 mls/hr 06/26/18 17:00 06/26/18 17:56 Normal Saline - IV 06/27/18 16:48 50 mls/hr ASDIR FIDEL Administration Losartan Potassium 25 mg 06/23/18 10:00 06/27/18 10:30 Cozaar - PO 25 mg DAILY FIDEL Administration Tamsulosin HCl 0.4 mg 06/23/18 13:33 06/27/18 10:30 Flomax - PO 0.4 mg DAILY@0830 FIDEL Administration Tiotropium [place] 2 puff 06/23/18 10:00 06/27/18 10:30 Spiriva Respimat IH 2 puff DAILY FIDEL Administration ASSESSMENT/PLAN: 82 y/o Tongan speaking M w/PMH of HTN, COPD, BPH, mild dementia admitted for sepsis secondary to UTI. -Sepsis secondary to UTI -c/w zosyn day 6 -ID on board -Dr Gil Ambrosio saw patient; recommended to c/w abx and to follow up as outpatient and continue with flomax -CT ab/pelvis done; negative for abscess -getting previous cx and sensitivities from dr gil ambrosio office -tylenol for fevers -Acute on Chronic COPD exacerbation -Uses 2L O2 at home. O2 supplementation to keep O2 saturation above 90% -Improved. No wheezing noted. -c/w spiriva and duonebs -HTN -c/w losartan 25 daily -Dementia -c/w aricept 5mg daily -BPH -c/w flomax 0.4 -renal/bladder U/S shows no evidence of hydronephrosis -CAD -c/w plavix 75 daily -DVT ppx -Heparin -FEN -no fluids currently -Monitor electrolytes -Regular diet Problem List - Problems (1) Dehydration Code(s): E86.0 - DEHYDRATION (2) Urinary tract infection Code(s): N39.0 - URINARY TRACT INFECTION, SITE NOT SPECIFIED Qualifiers: Urinary tract infection type: site unspecified Hematuria presence: without hematuria Qualified Code(s): N39.0 - Urinary tract infection, site not specified (3) BPH (benign prostatic hypertrophy) Code(s): N40.0 - BENIGN PROSTATIC HYPERPLASIA WITHOUT LOWER URINRY TRACT SYMP (4) Hypertension Code(s): I10 - ESSENTIAL (PRIMARY) HYPERTENSION Visit type - Emergency Visit Emergency Visit: Yes ED Registration Date: 06/22/18 Care time: The patient presented to the Emergency Department on the above date and was hospitalized for further evaluation of their emergent condition. - New Patient This patient is new to me today: No - Critical Care Critical Care patient: No
--- NOTE | 2018-06-27 13:56 | PN ---
Progress Note (short form) - Note Progress Note: feeling improved minimal dysuria, minimal rectal discomfort Vital Signs Period Temp Pulse Resp BP Sys/Paige Pulse Ox Last 24 Hr 97.8 F-99.7 F 79-103 18-20 113-138/57-69 96-96 cor-rrr lungs clear abd soft,nt ext no edema CBC, BMP 06/27/18 06:20 06/27/18 06:20 sonogram kidney/bladder- unremarkable Laboratory Tests 06/24/18 06/24/18 06/26/18 06:25 06:25 06:30 ESR 107 H C-Reactive Protein 18.9 H 9.6 H 06/26/18 06/27/18 06/27/18 06:30 06:20 06:20 ESR 88 H 82 H C-Reactive Protein 8.4 H Microbiology 06/22/18 12:50 Blood - Peripheral Venous Blood Culture - Final NO GROWTH AFTER 5 DAYS INCUBATION 06/22/18 03:44 Blood - Peripheral Venous Blood Culture - Final NO GROWTH AFTER 5 DAYS INCUBATION 06/24/18 14:10 Urine - Urine Clean Catch Urine Culture - Final NO GROWTH OBTAINED Current Medications Acetaminophen (Tylenol -) 650 mg PO Q4H PRN PRN Reason: FEVER Last Admin: 06/26/18 21:16 Dose: 650 mg Albuterol/Ipratropium (Duoneb -) 1 amp NEB Q4H PRN PRN Reason: SHORTNESS OF BREATH Last Admin: 06/25/18 20:52 Dose: 1 amp Clopidogrel Bisulfate (Plavix -) 75 mg PO DAILY [facility] Last Admin: 06/27/18 10:30 Dose: 75 mg Donepezil HCl (Aricept -) 5 mg PO DAILY [facility] Last Admin: 06/27/18 10:30 Dose: 5 mg Heparin Sodium (Porcine) (Heparin -) 5,000 unit SQ TID FIDEL Last Admin: 06/27/18 06:05 Dose: Not Given Piperacillin Sod/Tazobactam (Sod 3.375 gm/ Dextrose) 50 mls @ 100 mls/hr IVPB Q8H-IV FIDEL; Protocol Last Admin: 06/27/18 10:29 Dose: 100 mls/hr Sodium Chloride (Normal Saline -) 1,000 mls @ 50 mls/hr IV ASDIR FIDEL Stop: 06/27/18 16:48 Last Admin: 06/26/18 17:56 Dose: 50 mls/hr Losartan Potassium (Cozaar -) 25 mg PO DAILY [facility] Last Admin: 06/27/18 10:30 Dose: 25 mg Tamsulosin HCl (Flomax -) 0.4 mg PO DAILY@0830 [facility] Last Admin: 06/27/18 10:30 Dose: 0.4 mg Tiotropium [place] (Spiriva Respimat) 2 puff IH DAILY [facility] Last Admin: 06/27/18 10:30 Dose: 2 puff a/p low grade fever, elevated inflammatory markers- I suspect clinically that this is prostatitis and he is finally improving afebrile today, and esr/crp trending down +pyuria day #5 zoxyn unfortunately no urine culture was sent! would not use levaquin as he got this outpatient would avoid bactrim given his history of renal insufficiency would place picc line and treat with ertapenem for 2 weeks weekly cbc, cmp, esr/ crp have paged emergency medical technician/driver to discuss leidy resolved
--- NOTE | 2018-06-27 17:53 | PN ---
Teaching Attending Note Name of Resident: Leticia Orr ATTENDING PHYSICIAN STATEMENT I saw and evaluated the patient. I reviewed the resident's note and discussed the case with the resident. I agree with the resident's findings and plan as documented. SUBJECTIVE: cont to have rectal pain, low grade fevers. No ODOM , no CP , nO SOB OBJECTIVE: NAD CV: RRR Lungs: CTAB ext ; no edema Abd: soft, TTP in lower abd, no CVA tenderness. ASSESSMENT AND PLAN: 82 y/o man with h/o recurrent UTIs, recent cystoscopy, a day before admisison, dementia, BPH, COPD, who presented with fever , chills, and rctal pain and was found to have acute prostatitis 1- Sepsis due to acute prostatitis: slowly imporving . ESR, CRp and labs reviewed. no growth on cx - team d/w Id, plan for PICC with ertapenem - hopefully tomorrow if no fever 2- PERCY : resolved 3- liver cysts on imaging: f/u as out pt with further imaging 4- HTN : cont losartan. BP within goal dispo : plan for PICC and ertapenem x 2 weeks. Hopefully tomorrow if no more fever
[2018-06-28] MEDS ORDERED: DEXTROSE 5%-WATER - 50 ML IVPB ONE ×3 (01:47→17:36)
[2018-06-28] MEDS ORDERED: PIPERACILLIN/TAZOBACTAM 3.375 GM VIAL IVPB ONE ×3 (01:47→17:35)
[2018-06-28] MEDS: PIPERACILLIN/TAZOB 3.375 GM 3.375 GM in DEXTROSE 5%-WATER - 50 ML IVPB SCH ×3 (02:07→18:30)
[2018-06-28] MEDS: HEPARIN NA (PORCINE) 5,000 UNITS/ML 1ML VIAL SQ SCH ×2 (05:26→14:59)
[2018-06-28 08:28] LABS: ANION GAP 7 MMOL/L (8-16); BLOOD UREA NITROGEN 13 mg/dL (7-18); CALCIUM 8.2 mg/dL (8.5-10.1); CHLORIDE 109 mmol/L (98-107); CO2 26 mmol/L (21-32); CREATININE 1.2 mg/dL (0.55-1.3); GLUCOSE,RANDOM 93 mg/dL (74-106); MAGNESIUM 2.3 mg/dL (1.8-2.4); SODIUM 142 mmol/L (136-145)
[2018-06-28] MEDS: TAMSULOSIN HCL 0.4 MG CAP PO SCH (08:56)
[2018-06-28 09:00] LABS: HEMATOCRIT 34.8 % (35.4-49); HEMOGLOBIN 11.6 GM/dL (11.7-16.9); MCH 27.1 pg (25.7-33.7); MCHC 33.2 g/dl (32.0-35.9); MEAN CELL VOLUME 81.6 fl (80-96); MEAN PLT VOLUME 8.5 fl (7.5-11.1); PLATELET COUNT 167 K/MM3 (134-434); RBC 4.26 M/mm3 (4.00-5.60); RDW 14.5 % (11.9-15.9); WHITE BLOOD COUNT 4.6 K/mm3 (4.0-10.0)
[2018-06-28] MEDS: DONEPEZIL HCL 5 MG TABLET (FP) PO SCH (10:20)
[2018-06-28] MEDS: CLOPIDOGREL BISULFATE 75 MG TABLET (FP) PO SCH (10:21)
[2018-06-28] MEDS: LOSARTAN POTASSIUM 25 MG TABLET PO SCH (10:21)
[2018-06-28] MEDS: TIOTROPIUM BROMIDE 2.5 MCG (SPIRIVA) RESPIMAT INHALER IH SCH (10:22)
--- NOTE | 2018-06-28 11:43 | DS ---
Physical Exam: SUBJECTIVE: Patient seen and examined OBJECTIVE: Vital Signs Period Temp Pulse Resp BP Sys/Paige Pulse Ox Last 24 Hr 98.3 F-99.6 F 79-96 18-22 119-148/67-78 96 PHYSICAL EXAM GENERAL: The patient is awake, alert, and fully oriented, in no acute distress. HEAD: Normal with no signs of trauma. EYES: PERRL, extraocular movements intact, sclera anicteric, conjunctiva clear. ENT: Ears normal, nares patent, oropharynx clear without exudates, moist mucous membranes. NECK: Trachea midline, full range of motion, supple. LUNGS: Breath sounds equal, clear to auscultation bilaterally, no wheezes, no crackles, no accessory muscle use. HEART: Regular rate and rhythm, S1, S2 without murmur, rub or gallop. ABDOMEN: Soft, nontender, nondistended, normoactive bowel sounds, no guarding, no rebound, no hepatosplenomegaly, no masses. EXTREMITIES: 2+ pulses, warm, well-perfused, no edema. NEUROLOGICAL: Cranial nerves II through XII grossly intact. Normal speech, gait not observed. PSYCH: Normal mood, normal affect. SKIN: Warm, dry, normal turgor, no rashes or lesions noted. LABS Laboratory Results - last 24 hr 06/27/18 06/27/18 06/28/18 06:20 17:00 07:00 WBC 4.6 RBC 4.26 Hgb 11.6 L Hct 34.8 L MCV 81.6 MCH 27.1 MCHC 33.2 RDW 14.5 Plt Count 167 D MPV 8.5 Neutrophils % (Manual) 65.7 Band Neutrophils % 3.0 Lymphocytes % (Manual) 10.1 Monocytes % (Manual) 19 H Eosinophils % (Manual) 1.0 Basophils % (Manual) 0.0 Myelocytes % (Man) 0 Promyelocytes % (Man) 0 Blast Cells % (Manual) 0 Metamyelocytes 0 Hypochromia 0 Toxic Granulation 0 Dohle Bodies 0 Platelet Estimate Decreased Polychromasia 0 Poikilocytosis 0 Basophilic Stippling 0 Anisocytosis 0 Microcytosis 0 Macrocytosis 0 Spherocytes 0 Sickle Cells 0 Target Cells 0 Tear Drop Cells 0 Ovalocytes 0 Stomatocytes 0 Helmet Cells 0 [place] Bodies 0 [place] Rings 0 [place] Cells 0 Acanthocytes (Spur) 0 Rouleaux 0 Fragmented RBCs 0 Schistocytes 0 ESR Sodium Potassium Chloride Carbon Dioxide Anion Gap BUN Creatinine Creat Clearance w eGFR Random Glucose Calcium Phosphorus Magnesium C-Reactive Protein 7.3 H 06/28/18 06/28/18 06/28/18 07:00 07:00 07:00 WBC RBC Hgb Hct MCV MCH MCHC RDW Plt Count MPV Neutrophils % (Manual) Band Neutrophils % Lymphocytes % (Manual) Monocytes % (Manual) Eosinophils % (Manual) Basophils % (Manual) Myelocytes % (Man) Promyelocytes % (Man) Blast Cells % (Manual) Metamyelocytes Hypochromia Toxic Granulation Dohle Bodies Platelet Estimate Polychromasia Poikilocytosis Basophilic Stippling Anisocytosis Microcytosis Macrocytosis Spherocytes Sickle Cells Target Cells Tear Drop Cells Ovalocytes Stomatocytes Helmet Cells [place] Bodies [place] Rings [place] Cells Acanthocytes (Spur) Rouleaux Fragmented RBCs Schistocytes ESR 86 H Sodium 142 Potassium 4.0 Chloride 109 H Carbon Dioxide 26 Anion Gap 7 L BUN 13 Creatinine 1.2 Creat Clearance w eGFR 58.11 Random Glucose 93 Calcium 8.2 L Phosphorus 3.0 Magnesium 2.3 C-Reactive Protein 6.5 H Microbiology 06/22/18 12:50 Blood - Peripheral Venous Blood Culture - Final NO GROWTH AFTER 5 DAYS INCUBATION 06/22/18 03:44 Blood - Peripheral Venous Blood Culture - Final NO GROWTH AFTER 5 DAYS INCUBATION 06/24/18 14:10 Urine - Urine Clean Catch Urine Culture - Final NO GROWTH OBTAINED renal u/s: no evidence of hydronephrosis or obstruction HOSPITAL COURSE: Date of Admission:06/22/18 82 y/o male with PMH or HTN, COPD, BPH, mild dementia admitted for sepsis secondary to UTI. he presented to the ED with complaints of rectal pain, fevers , and urinary symptoms. patient presented with an elevated WBC count, elevated ESR/CRP and fever. he was started on ceftriaxone then he was seen by ID who switched his antibiotics to zosyn.He still continued to have fevers and elevated WBC count for days - however his symptoms improved. he has having less urinary symptoms and less pain however he was still spiking fevers while being on zosyn. he had an abdominal/pelvis CT which did not show any areas of abscess or fluid collection. his ESR and CRP began to downtrend however still elevated so he was switched to ertapenem 1gram daily and was sent home with a PICC line for a total of 2 weeks of antibiotics Date of Discharge: 06/28/18 Minutes to complete discharge: 39 Discharge Summary Reason For Visit: UTI/SEPSIS Current Active Problems Prostatitis (Acute) Condition: Improved - Instructions Diet, Activity, Other Instructions: You came to the emergency room with complaints of urinary pain in addition to rectal pain and were found to have a urinary tract infection and infection of your prostate for which we have been treating you with antibiotics for which you will be having a PICC line placed and coming back to the hospital daily for 2 weeks for antibiotic infusion . you were found to have liver cyst on US please follow up with ypur primary as out pt to repeat images. Please resume all of your home medications in addition: you will be coming back daily for IV Ertapenem infusions for 2 weeks We are referring you to a primary care physician that we would like you to follow up with in one week Please follow up with Dr. Martins, the urologist, within one week follow up with Dr. Multani in 2 weeks please take zantac antiacid over the counter for 2 weeks as needed for heart burn(acid reflux) *if you begin to experience any chest pains, shortness of breath, fevers, painful urination please return to the emergency room immediately CBC, CMP, ESR/CRP weekly while on Abx Referrals: Aureliano Casey MD [Staff Physician] - 1 Week Gilbert Martins MD [Staff Physician] - 1 Week Beverly Bernardo MD [Staff Physician] - Disposition: HOME - Home Medications Comprehensive Discharge Medication List: Ambulatory Orders Tamsulosin HCl [Flomax -] 0.4 mg PO DAILY 10/21/15 Clopidogrel Bisulfate [Plavix] 75 mg PO DAILY 06/22/18 Donepezil HCl [Aricept -] 5 mg PO DAILY 06/22/18 Losartan Potassium [Cozaar -] 25 mg PO DAILY 06/22/18 Tiotropium [place] [Spiriva Respimat] 2.5 mcg IH DAILY 06/22/18 Albuterol Sulfate Inhaler - [Ventolin HFA Inhaler -] 1 - 2 inh PO Q4H #1 inhaler 06/28/18 Ertapenem Sodium [Ertapenem] 1 gm IVPB DAILY #14 vial 06/28/18 Problem List - Problems (1) Urinary tract infection Code(s): N39.0 - URINARY TRACT INFECTION, SITE NOT SPECIFIED Qualifiers: Urinary tract infection type: site unspecified Hematuria presence: without hematuria Qualified Code(s): N39.0 - Urinary tract infection, site not specified (2) BPH (benign prostatic hypertrophy) Code(s): N40.0 - BENIGN PROSTATIC HYPERPLASIA WITHOUT LOWER URINRY TRACT SYMP (3) Hypertension Code(s): I10 - ESSENTIAL (PRIMARY) HYPERTENSION This patient is new to me today: No Emergency Visit: Yes ED Registration Date: 06/22/18 Care time: The patient presented to the Emergency Department on the above date and was hospitalized for further evaluation of their emergent condition. Critical Care patient: No - Discharge Referral Referred to [facility] No
[2018-06-28 11:49] VITALS: BMI 20.7
[2018-06-28 12:29] VITALS: TEMP 98.1
[2018-06-28 13:42] VITALS: BP 148/80; PULSE 92
--- NOTE | 2018-06-28 14:50 | PN ---
Teaching Attending Note Name of Resident: Leticia Orr ATTENDING PHYSICIAN STATEMENT I saw and evaluated the patient. I reviewed the resident's note and discussed the case with the resident. I agree with the resident's findings and plan as documented. SUBJECTIVE: No fever or chills. No abd pain. no rectal pain today . had epigastric discomfort yesterday but resolved OBJECTIVE: NAD CV: RRR Lungs: CTAB Ext ; no edema Abd: soft, TTP in lower abd, no CVA tenderness. ASSESSMENT AND PLAN: 82 y/o man with h/o recurrent UTIs, recent cystoscopy, a day before admisison, dementia, BPH, COPD, who presented with fever , chills, and rctal pain and was found to have acute prostatitis 1- Sepsis due to acute prostatitis:Improved. no growth on cx -cont with ertapenem through PICC x 2 weeks . CMP, ESR/CRP, CBC weekly whille on Abx - urology and ID f/u after dc 2- PERCY : resolved 3- liver cyst on imaging: f/u as out pt with further imaging . patient understands need for f/u with PCP for this 4- HTN : cont losartan. dispo : PICC today and dc . transportation to infusion center is already set for him
== END 2018-06-28 19:32 | disposition home or self-care (01) | DRG 872 ==
LOC: JER 11:44 → JERBED 15:53 → J5S 18:56
PROVIDERS: ADMIT Internal Medicine; ATTEND Internal Medicine
PROC: 05HB33Z Insertion of Infusion Device into Right Basilic Vein, Percutaneous Approach (ICD-10-PCS; principal; 2018-06-22)
PROC: 3E0F7GC Introduction of Other Therapeutic Substance into Respiratory Tract, Via Natural or Artificial Opening (ICD-10-PCS; 2018-06-28)
PROC: 05H933Z Insertion of Infusion Device into Right Brachial Vein, Percutaneous Approach (ICD-10-PCS; 2018-06-28)
PROC: B51MYZA Fluoroscopy of Right Upper Extremity Veins using Other Contrast, Guidance (ICD-10-PCS; 2018-06-28)
PROC: B54MZZA Ultrasonography of Right Upper Extremity Veins, Guidance (ICD-10-PCS; 2018-06-28)
DX: A41.9 Sepsis, unspecified organism (principal); N39.0 Urinary tract infection, site not specified; N17.9 Acute kidney failure, unspecified; N41.9 Inflammatory disease of prostate, unspecified; I10 Essential (primary) hypertension; J44.9 Chronic obstructive pulmonary disease, unspecified; I25.10 Atherosclerotic heart disease of native coronary artery without angina pectoris; N40.0 Benign prostatic hyperplasia without lower urinary tract symptoms; E86.0 Dehydration; J45.909 Unspecified asthma, uncomplicated; B96.29 Other Escherichia coli [E. coli] as the cause of diseases classified elsewhere; F03.90 Unspecified dementia, unspecified severity, without behavioral disturbance, psychotic disturbance, mood disturbance, and anxiety; K44.9 Diaphragmatic hernia without obstruction or gangrene; K76.89 Other specified diseases of liver
CPT/HCPCS: 36415; 36569; 71045-TC-FY; 74177-TC; 76775-TC; 76856-TC; 77001-TC-FY; 80048; 80053; 81003; 81015; 82272; 82803; 83605; 83735; 84100; 84484; 85025; 85027; 85610; 85651; 85730; 86140; 87040; 87086; 93005; 93010; 93306-TC; 94640; 97116-GP; 97161-GP; 99283-25; C1751; J0131; J1644; J7030

== ENCOUNTER 2018-06-29 10:53 | Day surgery (SDC) | payer OTHER ==
[~2018-06-29 10:53] MED LIST: ERTAPENEM SODIUM 1 GM in SODIUM CHLORIDE 100 ML IVPB ONE
[2018-06-29 11:40] VITALS: TEMP 98.7
[2018-06-29 12:14] VITALS: BP 117/61; PULSE 83
== END 2018-06-29 12:26 | disposition home or self-care (01) ==
LOC: JASU-ENDO 10:53 → JINFUSION 10:53 → JASU-ENDO 12:26
PROVIDERS: ATTEND Internal Medicine
DX: N39.0 Urinary tract infection, site not specified (principal)
CPT/HCPCS: 96365

== ENCOUNTER 2018-06-30 09:23 | Day surgery (SDC) | payer OTHER ==
[2018-06-30] MEDS ORDERED: ERTAPENEM SODIUM 1 GM in SODIUM CHLORIDE 50 ML IVPB ONE (10:15)
[2018-06-30 14:31] VITALS: TEMP 97.9
[2018-06-30 14:37] VITALS: BP 112/65; PULSE 70
== END 2018-06-30 12:30 | disposition home or self-care (01) ==
LOC: JINFUSION 09:23 → J7W 09:24 → JINFUSION 12:30
PROVIDERS: ATTEND Internal Medicine
DX: N39.0 Urinary tract infection, site not specified (principal)
CPT/HCPCS: 96365

== ENCOUNTER 2018-07-01 10:10 | Day surgery (SDC) | payer OTHER ==
[2018-07-01] MEDS ORDERED: ERTAPENEM SODIUM 1 GM in SODIUM CHLORIDE 50 ML IVPB ONE (10:30)
[2018-07-01 11:44] VITALS: TEMP 98.4
[2018-07-01 11:45] VITALS: BP 118/74; PULSE 83
== END 2018-07-01 11:56 | disposition home or self-care (01) ==
LOC: J7W 10:10 → JINFUSION 10:10
PROVIDERS: ATTEND Internal Medicine
DX: N39.0 Urinary tract infection, site not specified (principal)
CPT/HCPCS: 96365

== ENCOUNTER 2018-07-02 09:44 | Day surgery (SDC) | payer OTHER ==
[~2018-07-02 09:44] MED LIST changes: -ERTAPENEM SODIUM 1 GM in SODIUM CHLORIDE 100 ML IVPB ONE; +ERTAPENEM SODIUM 1 GM in SODIUM CHLORIDE 50 ML IVPB ONE
[2018-07-02 10:44] VITALS: BP 115/84; PULSE 90; TEMP 97.8
[2018-07-02 10:56] LABS: HEMATOCRIT 36.3 % (35.4-49); HEMOGLOBIN 12.3 GM/dL (11.7-16.9); MCH 27.6 pg (25.7-33.7); MCHC 33.9 g/dl (32.0-35.9); MEAN CELL VOLUME 81.4 fl (80-96); MEAN PLT VOLUME 7.7 fl (7.5-11.1); PLATELET COUNT 264 K/MM3 (134-434); RBC 4.46 M/mm3 (4.00-5.60); RDW 14.5 % (11.9-15.9); WHITE BLOOD COUNT 5.7 K/mm3 (4.0-10.0)
[2018-07-02 11:36] LABS: ERYTHROCYTE SEDIMENTATION RATE 87 mm/hr (0-20)
[2018-07-02 11:39] LABS: ALK PHOS 74 U/L (45-117); ANION GAP 9 MMOL/L (8-16); BILIRUBIN,TOTAL 0.3 mg/dL (0.2-1); BLOOD UREA NITROGEN 15 mg/dL (7-18); CALCIUM 8.5 mg/dL (8.5-10.1); CHLORIDE 110 mmol/L (98-107); CO2 25 mmol/L (21-32); CREATININE 1.1 mg/dL (0.55-1.3); GLUCOSE,RANDOM 107 mg/dL (74-106); POTASSIUM 4.1 mmol/L (3.5-5.1); SGOT/AST 35 U/L (15-37); SGPT/ALT 64 U/L (13-61); SODIUM 144 mmol/L (136-145); TOT PROT 7.3 g/dl (6.4-8.2)
== END 2018-07-02 11:20 | disposition home or self-care (01) ==
LOC: JINFUSION 09:44
PROVIDERS: ATTEND Internal Medicine
DX: N39.0 Urinary tract infection, site not specified (principal)
CPT/HCPCS: 36415; 80053; 85027; 85651; 86140; 96365

== ENCOUNTER 2018-07-03 09:53 | Day surgery (SDC) | payer OTHER ==
[~2018-07-03 09:53] MED LIST changes: +ERTAPENEM SODIUM 1 GM in SODIUM CHLORIDE 100 ML IVPB ONE; -ERTAPENEM SODIUM 1 GM in SODIUM CHLORIDE 50 ML IVPB ONE
[2018-07-03 10:50] VITALS: TEMP 97.5
[2018-07-03 11:35] VITALS: BP 108/88; PULSE 84
== END 2018-07-03 11:21 | disposition home or self-care (01) ==
LOC: JINFUSION 09:53
PROVIDERS: ATTEND Internal Medicine
DX: N39.0 Urinary tract infection, site not specified (principal)
CPT/HCPCS: 96365

== ENCOUNTER 2018-07-04 09:56 | Day surgery (SDC) | payer OTHER ==
[2018-07-04] MEDS ORDERED: ERTAPENEM SODIUM 1 GM in SODIUM CHLORIDE 50 ML IVPB ONE (10:00)
[2018-07-04 10:32] VITALS: TEMP 97.6
[2018-07-04 10:58] VITALS: BP 117/68; PULSE 94
== END 2018-07-04 11:05 | disposition home or self-care (01) ==
LOC: JINFUSION 09:56
PROVIDERS: ATTEND Internal Medicine
DX: N39.0 Urinary tract infection, site not specified (principal)
CPT/HCPCS: 96365

== ENCOUNTER 2018-07-05 10:27 | Day surgery (SDC) | payer OTHER ==
[~2018-07-05 10:27] MED LIST changes: -ERTAPENEM SODIUM 1 GM in SODIUM CHLORIDE 100 ML IVPB ONE; +ERTAPENEM SODIUM 1 GM in SODIUM CHLORIDE 50 ML IVPB ONE
[2018-07-05 12:29] VITALS: BP 106/71; PULSE 90; TEMP 97.7
== END 2018-07-05 12:24 | disposition home or self-care (01) ==
LOC: JINFUSION 10:27
PROVIDERS: ATTEND Internal Medicine
DX: N39.0 Urinary tract infection, site not specified (principal)
CPT/HCPCS: 96365

== ENCOUNTER 2018-07-06 09:47 | Day surgery (SDC) | payer OTHER ==
[2018-07-06 11:03] VITALS: BP 117/64; PULSE 89; TEMP 98.3
== END 2018-07-06 10:58 | disposition home or self-care (01) ==
LOC: JINFUSION 09:47
PROVIDERS: ATTEND Internal Medicine
DX: N39.0 Urinary tract infection, site not specified (principal)
CPT/HCPCS: 96365

== ENCOUNTER 2018-07-07 10:05 | Day surgery (SDC) | payer OTHER ==
[2018-07-07] MEDS ORDERED: ERTAPENEM SODIUM 1 GM in SODIUM CHLORIDE 100 ML IVPB ONE (11:00)
[2018-07-07] MEDS ORDERED: ERTAPENEM SODIUM 1 GM in SODIUM CHLORIDE 50 ML IVPB ONE (11:00)
[2018-07-07 11:46] VITALS: TEMP 97.9
[2018-07-07 12:37] VITALS: BP 141/69; PULSE 93
== END 2018-07-07 14:42 | disposition home or self-care (01) ==
LOC: JINFUSION 10:05 → J7W 10:05 → JINFUSION 14:42
PROVIDERS: ATTEND Internal Medicine
DX: N39.0 Urinary tract infection, site not specified (principal)
CPT/HCPCS: 96365; 96366

== ENCOUNTER 2018-07-08 09:33 | Day surgery (SDC) | payer OTHER ==
[2018-07-08] MEDS ORDERED: ERTAPENEM SODIUM 1 GM in SODIUM CHLORIDE 50 ML IVPB ONE (10:15)
[2018-07-08] MEDS ORDERED: ERTAPENEM SODIUM 1 GM in SODIUM CHLORIDE 100 ML IVPB ONE (10:15)
[2018-07-08 10:50] VITALS: BP 120/70; PULSE 84; TEMP 97.4
== END 2018-07-08 10:51 | disposition home or self-care (01) ==
LOC: JINFUSION 09:33 → J7W 09:33 → JINFUSION 10:51
PROVIDERS: ATTEND Internal Medicine
DX: N39.0 Urinary tract infection, site not specified (principal)
CPT/HCPCS: 96365; 96366

== ENCOUNTER 2018-07-09 10:29 | Day surgery (SDC) | payer OTHER ==
[2018-07-09 10:54] LABS: HEMATOCRIT 38.7 % (35.4-49); MCH 27.5 pg (25.7-33.7); MCHC 33.6 g/dl (32.0-35.9); MEAN CELL VOLUME 81.8 fl (80-96); MEAN PLT VOLUME 7.6 fl (7.5-11.1); PLATELET COUNT 303 K/MM3 (134-434); RBC 4.73 M/mm3 (4.00-5.60); RDW 14.3 % (11.9-15.9); WHITE BLOOD COUNT 4.7 K/mm3 (4.0-10.0)
[2018-07-09 11:27] LABS: ALBUMIN 3.2 g/dl (3.4-5.0); ALK PHOS 97 U/L (45-117); ANION GAP 5 MMOL/L (8-16); BILIRUBIN,TOTAL 0.4 mg/dL (0.2-1); BLOOD UREA NITROGEN 20 mg/dL (7-18); CALCIUM 8.8 mg/dL (8.5-10.1); CHLORIDE 109 mmol/L (98-107); CO2 26 mmol/L (21-32); CREATININE 1.2 mg/dL (0.55-1.3); GLUCOSE,RANDOM 113 mg/dL (74-106); POTASSIUM 4.3 mmol/L (3.5-5.1); SGOT/AST 22 U/L (15-37); SGPT/ALT 35 U/L (13-61); SODIUM 140 mmol/L (136-145); TOT PROT 7.4 g/dl (6.4-8.2)
[2018-07-09 12:20] LABS: ERYTHROCYTE SEDIMENTATION RATE 87 mm/hr (0-20)
[2018-07-09 12:47] VITALS: TEMP 97.5
[2018-07-09 12:59] VITALS: BP 131/72; PULSE 84
== END 2018-07-09 11:45 | disposition home or self-care (01) ==
LOC: JINFUSION 10:29
PROVIDERS: ATTEND Internal Medicine
DX: N39.0 Urinary tract infection, site not specified (principal)
CPT/HCPCS: 36415; 80053; 85027; 85651; 86140; 96365

== ENCOUNTER 2018-07-10 09:46 | Day surgery (SDC) | payer OTHER ==
[2018-07-10 10:21] VITALS: TEMP 97.3
[2018-07-10 11:18] VITALS: BP 119/67; PULSE 85
== END 2018-07-10 11:00 | disposition home or self-care (01) ==
LOC: JINFUSION 09:46
PROVIDERS: ATTEND Internal Medicine
DX: N39.0 Urinary tract infection, site not specified (principal)
CPT/HCPCS: 96365

== ENCOUNTER 2018-07-11 09:41 | Day surgery (SDC) | payer OTHER ==
[2018-07-11 10:18] VITALS: TEMP 97.4
[2018-07-11 10:55] VITALS: BP 115/72; PULSE 83
== END 2018-07-11 10:40 | disposition home or self-care (01) ==
LOC: JINFUSION 09:41
PROVIDERS: ATTEND Internal Medicine
DX: N39.0 Urinary tract infection, site not specified (principal)
CPT/HCPCS: 96365

== ENCOUNTER 2018-07-12 09:45 | Day surgery (SDC) | payer OTHER ==
[2018-07-12 10:13] VITALS: TEMP 98.5
[2018-07-12 11:01] VITALS: BP 144/73; PULSE 81
== END 2018-07-12 11:02 | disposition home or self-care (01) ==
LOC: JINFUSION 09:45
PROVIDERS: ATTEND Internal Medicine
DX: N39.0 Urinary tract infection, site not specified (principal)
CPT/HCPCS: 96365

== ENCOUNTER 2019-03-04 20:50 | Inpatient (IN) | payer OTHER ==
--- NOTE | 2019-03-04 20:57 | PDOC ---
History of Present Illness - General Stated Complaint: ALLERGY REACTION Time Seen by Provider: 03/04/19 20:57 History Source: Patient, EMS Exam Limitations: Dementia (dementia and poor historian) - History of Present Illness Initial Comments: Pt is an 83 yo M, with PMH of COPD, HTN, BPH, and dementia, who is presenting from home via EMS with complaints of "throat scratching" and eye swelling just shortly prior to presentation. EMS states pt has had a similar episode a few months ago, and was discharged to home after receiving medications. Pt was provided 0.5 IM epinephrine and 50 mg PO bendadryl, with improvement of his symptoms. Pt did not take any of his known allergy triggers, nor was his medication changed after his last event. Pt states his eye swelling and throat symptoms have improved. Pt denies any fevers/chills, headache, vision changes, syncope, chest pain, palpitations, SOB, nausea/vomiting, abdominal pain, urinary symptoms, diarrhea/constipation, or leg swelling. Allergies: Aspirin (did not take); does take losartan with no known allergy PCP: Yovanny Wheat Social: Pt denies any cigarette, alcohol, or drug use. Pt denies any recent travel or sick contacts. Surgical: cystoscopy Family: no relevant history. 03/04/19 22:07 03/04/19 23:45 Past History - Travel Traveled outside of the country in the last 30 days: No Close contact w/someone who was outside of country & ill: No - Past Medical History Allergies/Adverse Reactions: Allergies Allergy/AdvReac Type Severity Reaction Status Date / Time aspirin Allergy Severe Difficulty Verified 03/04/19 22:23 Breathing Home Medications: Ambulatory Orders Tamsulosin HCl [Flomax -] 0.8 mg PO HS 10/21/15 Clopidogrel Bisulfate [Plavix] 75 mg PO DAILY 06/22/18 Donepezil HCl [Aricept -] 10 mg PO DAILY 06/22/18 Losartan Potassium [Cozaar -] 25 mg PO DAILY 06/22/18 Tiotropium [place] [Spiriva Respimat] 2.5 mcg IH DAILY 06/22/18 Albuterol Sulfate Inhaler - [Ventolin HFA Inhaler -] 1 - 2 inh PO Q4H #1 inhaler 06/28/18 Ertapenem Sodium [Ertapenem] 1 gm IVPB DAILY #14 vial 06/28/18 Ciprofloxacin HCl [Cipro] 500 mg PO BID 07/03/18 Anemia: No Asthma: No Cancer: No Cardiac Disorders: No CVA: No COPD: Yes CHF: No Dementia: Yes Diabetes: No GI Disorders: No Disorders: Yes (enlarged prostate) HTN: Yes Hypercholesterolemia: No Liver Disease: No Seizures: No Thyroid Disease: No - Surgical History Abdominal Surgery: No Cardiac Surgery: No Lung Surgery: No Neurologic Surgery: No Orthopedic Surgery: No - Psycho Social/Smoking Cessation Hx Smoking History: Former smoker Have you smoked in the past 12 months: No Hx Alcohol Use: No Drug/Substance Use Hx: No Substance Use Type: None Hx Substance Use Treatment: No Review of Systems - Review of Systems Able to Perform ROS?: No (limited, see HPI) *Physical Exam - Physical Exam Comments: Vitals stable, HR low 100s, O2 95-97% on RA, pt afebrile. Pt in NAD, breathing comfortably and able to speak in full sentences. Normal body habitus. Pt alert and oriented x3. gold nib grinder generally intact, muscular strength and sensation intact. No midline spinal tenderness, step-offs, or crepitus. Head normocephalic, atraumatic. Eyes PERRLA, EOMI. Significant periocular swelling. Oropharynx without erythema or exudates, no LAD b/l. No nasal congestion. Hearing intact. Clear heart sounds, S1/S2, no JVD, b/l pedal edema, or heart murmur. Good air movement, mild end expiratory wheezing b/l posterior bases. No abdominal or CVA tenderness to palpation, no rebound, no guarding. Abdomen soft, non-distended, and with normoactive bowel sounds. Skin without jaundice or rash. 03/04/19 22:09 03/04/19 22:36 ED Treatment Course - LABORATORY CBC & Chemistry Diagram: 03/04/19 22:30 03/04/19 22:30 Medical Decision Making - Medical Decision Making Pt was seen at bedside, also will be seen by attending Dr. Prescott. Pt presenting with complaints of swelling and throat scratching after unknown allergy exposure, with similar episode 3 months ago. Still with significant periocular edema on examination. Will evaluate with basic labs, chest x-ray, ECG , CBC, CMP, and will observe for continued/rebound symptoms. Provided duonebs and solumedrol for improvement of wheezing and symptom control. Will continue to reassess pt and monitor for symptomatic improvement. ECG: NSR, intervals WNL (HR 89, NJ 118, QRS 98, QTc 452). No TWIs or significant ST segment changes. No significant changes from prior ECG. 03/04/19 22:12 Chest x-ray with no infiltrates. CBC and CMP pending. 03/04/19 22:56 CBC WNL CMP: K 2.9 -- providing PO KCl Vitals continue to be stable, pt states symptoms improving. Paged hospitalist team for admission. 03/04/19 23:45 Pt accepted to hospitalist team (Dr. Levine). Explained disposition using production repairer ([employer] [id number]) with pt understanding. 03/05/19 00:29 Discharge - Discharge Information Problems reviewed: Yes Clinical Impression/Diagnosis: Allergic reaction Qualifiers: Encounter type: initial encounter Qualified Code(s): T78.40XA - Allergy, unspecified, initial encounter Condition: Stable - Admission Yes - Follow up/Referral Referrals: Viraj Wheat MD [Primary Care Provider] - - Patient Discharge Instructions - Post Discharge Activity
--- NOTE | 2019-03-04 20:59 | PDOC ---
Attending Attestation - Resident Resident Name: Lory Culver - ED Attending Attestation I have performed the following: I have examined & evaluated the patient, The case was reviewed & discussed with the resident, I agree w/resident's findings & plan - HPI HPI: 03/04/19 21:47 see resident hpi - Physicial Exam PE: 03/04/19 21:47 agree with resident exam - Medical Decision Making 03/04/19 21:48 83-year-old male with facial and throat swelling, possibly due to medication Patient received epinephrine and Benadryl 50 mg IV prior to arrival Solu-Medrol, nebulizer treatments administered in the emergency department Due to patient's age and location of swelling/possible angioedema patient will be admitted to medical service for observation At this time airway is patent, he is able to swallow and vocalize with no difficulty
[2019-03-04] MEDS ORDERED: methylPREDNISolone NA SUCC 40 MG/1 ML VIAL IVPUSH ONE (21:07)
[2019-03-04] MEDS ORDERED: methylPREDNISolone NA SUCC 40 MG/1 ML VIAL ONE (21:19)
[2019-03-04] MEDS ORDERED: ALBUTEROL SO4 2.5/IPRATROPIUM 0.5 INH SOL 3 ML VIAL.NEB. NEB ONE (21:27)
[2019-03-04] MEDS: ALBUTEROL SO4 2.5/IPRATROPIUM 0.5 INH SOL 3 ML VIAL.NEB. NEB SCH ×3 (21:29→22:24)
[2019-03-04 22:23] VITALS: BMI 27.4
[2019-03-04 22:46] LABS: BASO % 0.5 % (0-2.0); EOS % 0.7 % (0-4.5); HEMATOCRIT 36.1 % (35.4-49); HEMOGLOBIN 11.3 GM/dL (11.7-16.9); LYMPH % 19.6 % (8-40); MCH 25.4 pg (25.7-33.7); MCHC 31.4 g/dl (32.0-35.9); MEAN CELL VOLUME 80.9 fl (80-96); MEAN PLT VOLUME 7.9 fl (7.5-11.1); MONO % 10.3 % (3.8-10.2); NEUT % 68.9 % (42.8-82.8); PLATELET COUNT 171 K/MM3 (134-434); RBC 4.46 M/mm3 (4.00-5.60); RDW 14.8 % (11.9-15.9); WHITE BLOOD COUNT 6.1 K/mm3 (4.0-10.0)
[2019-03-04 23:27] LABS: ALBUMIN 3.2 g/dl (3.4-5.0); BILIRUBIN,TOTAL 0.2 mg/dL (0.2-1); BLOOD UREA NITROGEN 16.1 mg/dL (7-18); TOT PROT 5.1 g/dl (6.4-8.2)
[2019-03-04 23:29] LABS: CALCIUM 6.7 mg/dL (8.5-10.1); POTASSIUM 2.9 mmol/L (3.5-5.1)
[2019-03-04] MEDS ORDERED: POTASSIUM CHLORIDE ORAL LIQUID 20 MEQ/15 ML PO ONE (23:30)
[2019-03-04] MEDS ORDERED: POTASSIUM CHLORIDE ORAL LIQUID 20 MEQ/15 ML ONE (23:35)
[2019-03-05 00:44] LABS: MAGNESIUM 1.6 mg/dL (1.8-2.4)
--- NOTE | 2019-03-05 00:51 | PN ---
Teaching Attending Note Name of Resident: Rosa Mayfield ATTENDING PHYSICIAN STATEMENT I saw and evaluated the patient. I reviewed the resident's note and discussed the case with the resident. I agree with the resident's findings and plan as documented. SUBJECTIVE: Patient is an 83 yearold man with a PMH of COPD, HTN, BPH, Prostatitis and Dementia, who is presenting from home via EMS with complaints of "throat scratching" and eye swelling just shortly prior to presentation. Had just consumed rice and chicken prepared by his home health physical therapist's son. No one else in the house had the same reaction. EMS states he has had a similar episode a few months ago, and was discharged to home after receiving medications. He got 0.5 IM epinephrine and 50 mg PO bendadryl, with improvement of his symptoms. Patient did not take any of his known allergy triggers, nor was his medication changed after his last event. He says his eye swelling and throat symptoms have improved. Patient denies any fevers, chills, headache, vision changes, syncope, chest pain, palpitations, SOB, nausea, vomiting, abdominal pain, urinary symptoms, diarrhea, constipation, or leg swelling. Allergic to Aspirin which he reportedly didnot take. Patient denies tobacco, alcohol, or drug use. Denies any recent travel or sick contacts. OBJECTIVE: Alert Vital Signs Period Temp Pulse Resp BP Sys/Paige Pulse Ox Last 24 Hr 97.2 F 84-105 17-18 126-143/62-73 96-100 HEENT: No Jaundice, eye redness or discharge, PERRLA, EOMI. Periorbital edema, Normocephalic, atraumatic. External ears are normal and hearing is grossly intact. No nasal discharge. Neck: Supple, nontender. No palpable adenopathy or thyromegaly. No JVD Chest: Good effort. Clear to auscultation and percussion. Heart: Regular. No S3, rub or murmur Abdomen: Not distended, soft, nontender and no HSM. No rebound or guarding. Normal bowel sounds. Ext: Peripheral pulses intact. No leg edema. Skin: Warm and dry. No petechiae, rash or ecchymosis. Neuro: Alert. Oriented x3. CN 2-12 grossly intact. Sensation grossly intact in all four extremities and DTR are symmetric. Psych: Appropriate mood and affect. Good insight. Current Medications Generic Name Dose Route Start Last Admin Trade Name Clyde PRN Reason Stop Dose Admin Potassium Chloride 10 meq in 100 mls @ 100 mls/hr 03/05/19 01:45 Potassium Chloride 10 Meq Premix Ivpb - IVPB 03/05/19 04:44 Q60M FIDEL Magnesium Sulfate 2 gm 03/05/19 01:40 Magnesium Sulfate IVPB 03/05/19 01:41 ONCE ONE Home Medications Medication Instructions Recorded Tamsulosin HCl [Flomax -] 0.8 mg PO HS 10/21/15 Clopidogrel Bisulfate [Plavix] 75 mg PO DAILY 06/22/18 Donepezil HCl [Aricept -] 10 mg PO DAILY 06/22/18 Losartan Potassium [Cozaar -] 25 mg PO DAILY 06/22/18 Tiotropium [place] [Spiriva 2.5 mcg IH DAILY 06/22/18 Respimat] Albuterol Sulfate Inhaler - 1 - 2 inh PO Q4H #1 inhaler 06/28/18 [Ventolin HFA Inhaler -] Ertapenem Sodium [Ertapenem] 1 gm IVPB DAILY #14 vial 06/28/18 Ciprofloxacin HCl [Cipro] 500 mg PO BID 07/03/18 Abnormal Lab Results 03/04/19 03/04/19 22:30 22:30 Hgb 11.3 L MCH 25.4 L MCHC 31.4 L Monocytes % 10.3 H Sodium 149 H Potassium 2.9 L* Chloride 112 H Random Glucose 126 H Calcium 6.7 L* Magnesium 1.6 L AST 10 L ALT 10 L Total Protein 5.1 L Albumin 3.2 L ASSESSMENT AND PLAN: 1. Allergic reaction/Hypokalemia - It is unclear what precipitated his " allergic reaction". Will treat with IV solumedrol, pepcid, benadryl and monitor closely for respiratory distress. Cause of hypernatremia, hypokalemia, hypocalcemia and hypomagnesemia unclear. No acute abnormality on CXR. Though he does not have DM, hyperglycemia may have caused urinary electrolyte wasting and dehydration. In view of history of dementia, will need a family member to make sure he is not taking any medication at home that is not listed. EKG shows NSR with no significant ST-T wave changes. Will get urine K+, PTH level, HbA1c, urinalysis, urine toxicology, vitamin d level and treat with IV/PO KCL, MgSO4 and 0.45% NaCl and check serum sodium q 6 hours to avoid rapid drop. Will continue comprehensive care for all of patients comorbid conditions. 2. Hypoalbuminemia - Possibly due to combined effects of malnutrition and inflammation associated with comorbid chronic conditions. Will ensure adequate dietary protein intake and also consult business professor. 3. Hypertension - Restart suitable outpatient antihypertensive drugs when clinically appropriate. Revise regimen to ensure [id number] excellent BP control and evp general counsel patient on the injurious effects of uncontrolled hypertension. Nonpharmacologic measures to control hypertension like weight loss , salt restriction and exercise discussed. Importance of adherence to treatment regimen and attainment of normotension emphasized. 4. DVT prophylaxis - Lovenox 40 mg SQ q 24 hours. 5. Advance directives - Full code
[2019-03-05] MEDS ORDERED: MAGNESIUM SULF 50% (8.12 MEQ/2 ML-1 GM VIAL) IVPB ONE (01:40)
[2019-03-05] MEDS: KCL 10 MEQ IVPB 10 MEQ/100 ML INFUS.BAG IVPB SCH ×3 (02:05→04:27)
[2019-03-05] MEDS ORDERED: KCL 10 MEQ IVPB 10 MEQ/100 ML INFUS.BAG IVPB ONE ×2 (03:14→04:16)
[2019-03-05] MEDS ORDERED: ACETAMINOPHEN 325 MG TABLET (FP) PO PRN (03:16)
[2019-03-05] MEDS ORDERED: methylPREDNISolone NA SUCC 40 MG/1 ML VIAL IVPUSH ONE (03:22)
[2019-03-05] MEDS ORDERED: methylPREDNISolone NA SUCC 40 MG/1 ML VIAL ONE (03:24)
[2019-03-05] MEDS ORDERED: diphenhydrAMINE HCL 25 MG CAPSULE (FP) PO SCH (03:30)
[2019-03-05] MEDS ORDERED: SODIUM CHLORIDE 0.45% 1,000 ML IV SCH (04:15)
--- NOTE | 2019-03-05 05:06 | HP ---
CHIEF COMPLAINT: allergic reaction PCP: Dr Viraj Wheat HISTORY OF PRESENT ILLNESS: 83 y/o male with past medical history of COPD, hypertension (on Losartan), BPH , ASPIRIN ALLERGY and dementia presenting to the ED with a chief complaint of periorbital edema, difficulty swallowing and "scratchy throat"prior to presentation . Thirty minutes prior to experiencing his symptoms, pt had chicken and right prepared by his home health care provider's son. He denies taking any aspirin containing products or any other inciting agents.Pt recalls a similar episode a few months ago of unknown etiology (no exposure to known allergen ( aspirin) and he received 0.5mg IM epinephrine and 50mg PO Benadryl which resolved his symptoms at that time. Pt denies fevers, chills, mouth/lip swelling , difficulty breathing, nausea, vomiting, changes in bowel movement and urination. ER course was notable for: (1) VSS, CBC unremarkable, CMP remarkable for hypokalemia 2.9, hypomagnesimia 1.6, hypocalcemia 7.3 ( corrected for albumin), mild hyperglycemia (2) CXR neg, EKG normal sinus (3) duonebs, solumedrol and PO KCl Recent Travel: denies PAST MEDICAL HISTORY: as above PAST SURGICAL HISTORY: denies FAMILY HISTORY: non contributory Social History: Smoking:denies Alcohol: denies Drugs: denies Allergies aspirin Allergy (Severe, Verified 03/04/19 22:23) Difficulty Breathing HOME MEDICATIONS: Home Medications Medication Instructions Recorded Tamsulosin HCl [Flomax -] 0.8 mg PO HS 10/21/15 Clopidogrel Bisulfate [Plavix] 75 mg PO DAILY 06/22/18 Donepezil HCl [Aricept -] 10 mg PO DAILY 06/22/18 Losartan Potassium [Cozaar -] 25 mg PO DAILY 06/22/18 Tiotropium [place] [Spiriva 2.5 mcg IH DAILY 06/22/18 Respimat] Albuterol Sulfate Inhaler - 1 - 2 inh PO Q4H #1 inhaler 06/28/18 [Ventolin HFA Inhaler -] Ertapenem Sodium [Ertapenem] 1 gm IVPB DAILY #14 vial 06/28/18 Ciprofloxacin HCl [Cipro] 500 mg PO BID 07/03/18 REVIEW OF SYSTEMS CONSTITUTIONAL: Absent: fever, chills, diaphoresis, generalized weakness, malaise, loss of appetite, weight change HEENT: difficulty swallowing, Absent: rhinorrhea, nasal congestion, throat pain, throat swelling, mouth swelling, ear pain, eye pain, visual changes CARDIOVASCULAR: Absent: chest pain, syncope, palpitations, irregular heart rate, lightheadedness , peripheral edema RESPIRATORY: Absent: cough, shortness of breath, dyspnea with exertion, orthopnea, wheezing, stridor, hemoptysis GASTROINTESTINAL: Absent: abdominal pain, abdominal distension, nausea, vomiting, diarrhea, constipation, melena, hematochezia GENITOURINARY: Absent: dysuria, frequency, urgency, hesitancy, hematuria, flank pain, genital pain MUSCULOSKELETAL: Absent: myalgia, arthralgia, joint swelling, back pain, neck pain SKIN: Absent: rash, itching, pallor HEMATOLOGIC/IMMUNOLOGIC: Absent: easy bleeding, easy bruising, lymphadenopathy, frequent infections ENDOCRINE: Absent: unexplained weight gain, unexplained weight loss, heat intolerance, cold intolerance NEUROLOGIC: Absent: headache, focal weakness or paresthesias, dizziness, unsteady gait, seizure, mental status changes, bladder or bowel incontinence PSYCHIATRIC: Absent: anxiety, depression, suicidal or homicidal ideation, hallucinations. PHYSICAL EXAMINATION Vital Signs - 24 hr 03/04/19 03/05/19 03/05/19 22:02 01:02 03:42 Temperature 97.2 F L Pulse Rate 105 H Pulse Rate [ 84 85 Left] Respiratory 18 17 15 Rate Blood Pressure 143/73 Blood Pressure 126/62 111/55 L [Right Arm] O2 Sat by Pulse 100 98 95 Oximetry (%) GENERAL: Awake, alert, and fully oriented, in no acute distress. HEAD: Normal with no signs of trauma. EYES: Pupils equal, round and reactive to light, extraocular movements intact, sclera anicteric, conjunctiva clear. periorbital Edema EARS, NOSE, THROAT: oropharynx clear without exudates. Moist mucous membranes. throat visualized: no sig edema noted NECK: Normal range of motion, supple without lymphadenopathy, JVD, or masses. LUNGS: Breath sounds equal, clear to auscultation bilaterally. No wheezes, and no crackles. No accessory muscle use. HEART: Regular rate and rhythm, normal S1 and S2 without murmur, rub or gallop. ABDOMEN: Soft, nontender, not distended, normoactive bowel sounds, no guarding, no rebound, no masses. No hepatomegaly or splenomegaly. MUSCULOSKELETAL: Normal range of motion at all joints. No bony deformities or tenderness. No CVA tenderness. UPPER EXTREMITIES: 2+ pulses, warm, well-perfused. No cyanosis. No clubbing. No peripheral edema. LOWER EXTREMITIES: 2+ pulses, warm, well-perfused. No calf tenderness. No peripheral edema. PSYCHIATRIC: Cooperative. Good eye contact. Appropriate mood and affect. SKIN: Warm, dry, normal turgor, no rashes or lesions noted, normal capillary refill. Laboratory Results - last 24 hr 03/04/19 03/04/19 22:30 22:30 WBC 6.1 RBC 4.46 Hgb 11.3 L Hct 36.1 MCV 80.9 MCH 25.4 L MCHC 31.4 L RDW 14.8 Plt Count 171 D MPV 7.9 Absolute Neuts (auto) 4.2 Neutrophils % 68.9 Lymphocytes % 19.6 D Monocytes % 10.3 H Eosinophils % 0.7 Basophils % 0.5 Nucleated RBC % 0 Sodium 149 H Potassium 2.9 L* Chloride 112 H Carbon Dioxide 24 Anion Gap 13 BUN 16.1 Creatinine 1.0 Est GFR (CKD-EPI)AfAm 80.88 Est GFR (CKD-EPI)NonAf 69.78 Random Glucose 126 H Calcium 6.7 L* Magnesium 1.6 L Total Bilirubin 0.2 AST 10 L ALT 10 L Alkaline Phosphatase 61 Total Protein 5.1 L Albumin 3.2 L ASSESSMENT/PLAN: 83 y/o male with past medical history of COPD, hypertension (on Losartan), BPH , ASPIRIN ALLERGY and dementia presenting to the ED with a chief complaint of periorbital edema, difficulty swallowing and scratchy throat prior. Admitted for severe allergic reaction monitoring and electrolyte abnormalities Sever allergic reaction most likely 2/2 food intake ( chicken and rice made by MAHAD's son) pt has significant periorbital edema but no SOB or difficulty breathing at the time received solumedrol in ED will continue solumedrol at 40 IV dialy benadryl 50 BID started and ranitidine 150 daily started maybe have discussion with pt family to ensure proper medication administration ( no accidental ASA ingestion) Monitor Airway and breathing Electrolyte abnormalities due to unknown etiology No current diuretic use non alcoholic per patient , with no change in appetite according to family at bedside Hypernatremia at 149. check serum sodium q 6 hours to avoid rapid drop Hypokalemic at 2.9. repleting with 3 kruns. PO KCL given in ED already Urine Potassium sent to assess for renal cause of hypokalemia Hypomagnesemia at 1.6 also repleting to ensure correction of hypokalelemia IV magnesium 2 gm administered once Hypocalcemia 6.7 corrected for albumin of 3.2 at 7.3 PTH level and phosphorus level sent HbA1c urinalysis urine toxicology F/u morning labs FEN salt controlled diet 1/2 NS @ 75. change if sodium corrects monitory electrolytes DVT lovenox daily Visit type - Emergency Visit Emergency Visit: Yes ED Registration Date: 03/05/19 Care time: The patient presented to the Emergency Department on the above date and was hospitalized for further evaluation of their emergent condition. - New Patient This patient is new to me today: Yes Date on this admission: 03/05/19 - Critical Care Critical Care patient: No ATTENDING PHYSICIAN STATEMENT I saw and evaluated the patient. I reviewed the resident's note and discussed the case with the resident. I agree with the resident's findings and plan as documented. SUBJECTIVE: OBJECTIVE: ASSESSMENT AND PLAN:
[2019-03-05 06:06] LABS: BASO % 0.2 % (0-2.0); HEMATOCRIT 34.6 % (35.4-49); HEMOGLOBIN 11.2 GM/dL (11.7-16.9); LYMPH % 8.7 % (8-40); MCHC 32.2 g/dl (32.0-35.9); MEAN CELL VOLUME 80.6 fl (80-96); MONO % 2.4 % (3.8-10.2); NEUT % 88.7 % (42.8-82.8); PLATELET COUNT 172 K/MM3 (134-434); RDW 14.7 % (11.9-15.9); WHITE BLOOD COUNT 4.8 K/mm3 (4.0-10.0)
[2019-03-05 06:34] LABS: BILIRUBIN,TOTAL 0.3 mg/dL (0.2-1); BLOOD UREA NITROGEN 17.7 mg/dL (7-18); CALCIUM 8.5 mg/dL (8.5-10.1); CREATININE 1.2 mg/dL (0.55-1.3); MAGNESIUM 2.6 mg/dL (1.8-2.4); PHOSPHOROUS 1.8 mg/dL (2.5-4.9); POTASSIUM 4.7 mmol/L (3.5-5.1); TOT PROT 6.1 g/dl (6.4-8.2)
[2019-03-05] MEDS ORDERED: SODIUM PHOSPHATE - 15 MM in SODIUM CHLORIDE 250 ML IVPB ONE (09:00)
--- NOTE | 2019-03-05 09:52 | EKG ---
Test Reason : Blood Pressure : / mmHG Vent. Rate : 089 BPM Atrial Rate : 089 BPM P-R Int : 118 ms QRS Dur : 098 ms QT Int : 372 ms P-R-T Axes : 057 025 055 degrees QTc Int : 452 ms NORMAL SINUS RHYTHM NORMAL ECG WHEN COMPARED WITH ECG OF 22-JUN-2018 11:56, NO SIGNIFICANT CHANGE WAS FOUND Confirmed by MD ALAN, JENNY ([id number]) on 03/05/2019 9:52:11 AM Referred By: Confirmed By:JENNY PHILLIPS MD
[2019-03-05] MEDS: ENOXAPARIN NA (PORCINE) 40 MG/0.4 ML DISP.SYRIN SQ SCH (11:30)
[2019-03-05] MEDS: diphenhydrAMINE HCL 25 MG CAPSULE (FP) PO SCH ×2 (11:30→21:29)
[2019-03-05] MEDS: methylPREDNISolone NA SUCC 40 MG/1 ML VIAL IVPUSH SCH (11:30)
[2019-03-05] MEDS: FAMOTIDINE 20 MG TABLET PO SCH (12:10)
[2019-03-05 12:55] LABS: EPI CELLS 0.3 /HPF (0-5/HPF); HYALINE CASTS 1 /lpf (0-8); PH,URINE 6.5 (5.0-8.0); URINE APPEARANCE CLEAR; URINE BACTERIA 2.2 /hpf (NEGATIVE); URINE BILIRUBIN NEGATIVE (NEGATIVE); URINE COLOR YELLOW; URINE GLUCOSE (UA) NEGATIVE (NEGATIVE); URINE KETONE NEGATIVE (NEGATIVE); URINE LEUK ESTERASE 1+ (NEGATIVE); URINE NITRITE NEGATIVE (NEGATIVE); URINE PROTEIN NEGATIVE (NEGATIVE); URINE RBC 1 /hpf (0-4); URINE UROBILINOGEN 0.2 mg/dL (0.2-1.0); URINE WBC 1 /hpf (0-5)
--- NOTE | 2019-03-05 13:59 | PN ---
Teaching Attending Note Name of Resident: Ninoska Richardson ATTENDING PHYSICIAN STATEMENT I saw and evaluated the patient. I reviewed the resident's note and discussed the case with the resident. I agree with the resident's findings and plan as documented with exceptions below. SUBJECTIVE: Patient seen and examined. Eye swelling improved, scratchy throat swelling improved, no dyspnea or dysphagia. Overall feels better. OBJECTIVE: Vital Signs Period Temp Pulse Resp BP Sys/Paige Pulse Ox Last 24 Hr 97.2 F 77-105 15-18 111-143/55-73 95-100 Intake & Output 03/02/19 03/03/19 03/04/19 03/05/19 23:59 23:59 23:59 23:59 Weight 160 lb General: sitting in bed, no acute distress HEENT: rabia-orbital swelling, L>R, EOMI, PERRL (improved and able to open his eyes, per patient) Neck: soft, supple Chest: CTAB, no stridor or wheezing noted Abdomen:soft, obese, NT Extremities: no pedal edema Home Medications Medication Instructions Recorded Tamsulosin HCl [Flomax -] 0.8 mg PO HS 10/21/15 Clopidogrel Bisulfate [Plavix] 75 mg PO DAILY 06/22/18 Donepezil HCl [Aricept -] 10 mg PO DAILY 06/22/18 Losartan Potassium [Cozaar -] 25 mg PO DAILY 06/22/18 Tiotropium [place] [Spiriva 2.5 mcg IH DAILY 06/22/18 Respimat] Albuterol Sulfate Inhaler - 1 - 2 inh PO Q4H #1 inhaler 06/28/18 [Ventolin HFA Inhaler -] Ciprofloxacin HCl [Cipro] 500 mg PO BID 07/03/18 Fluticasone Propionate [Flonase 1 sprays NS ASDIR 03/05/19 Allergy Relief] Omeprazole 20 mg PO DAILY 03/05/19 Active Medications Acetaminophen (Tylenol -) 650 mg PO Q4H PRN PRN Reason: PAIN LEVEL 1-5 Diphenhydramine HCl (Benadryl -) 50 mg PO BID [facility] Last Admin: 03/05/19 11:30 Dose: 50 mg Enoxaparin Sodium (Lovenox -) 40 mg SQ DAILY [facility] Last Admin: 03/05/19 11:30 Dose: 40 mg Famotidine (Pepcid -) 20 mg PO DAILY [facility] Last Admin: 03/05/19 12:10 Dose: 20 mg Methylprednisolone Sodium Succinate (Solu-Medrol -) 40 mg IVPUSH DAILY [facility] Last Admin: 03/05/19 11:30 Dose: 40 mg Laboratory Results - last 24 hr 03/04/19 03/04/19 03/05/19 22:30 22:30 05:30 WBC 6.1 4.8 RBC 4.46 4.30 Hgb 11.3 L 11.2 L Hct 36.1 34.6 L MCV 80.9 80.6 MCH 25.4 L 26.0 MCHC 31.4 L 32.2 RDW 14.8 14.7 Plt Count 171 D 172 MPV 7.9 8.0 Absolute Neuts (auto) 4.2 4.3 Neutrophils % 68.9 88.7 H D Lymphocytes % 19.6 D 8.7 D Monocytes % 10.3 H 2.4 L Eosinophils % 0.7 0.0 D Basophils % 0.5 0.2 Nucleated RBC % 0 0 Sodium 149 H Potassium 2.9 L* Chloride 112 H Carbon Dioxide 24 Anion Gap 13 BUN 16.1 Creatinine 1.0 Est GFR (CKD-EPI)AfAm 80.88 Est GFR (CKD-EPI)NonAf 69.78 Random Glucose 126 H Hemoglobin A1c % Calcium 6.7 L* Phosphorus Magnesium 1.6 L Total Bilirubin 0.2 AST 10 L ALT 10 L Alkaline Phosphatase 61 Total Protein 5.1 L Albumin 3.2 L Urine Color Urine Appearance Urine pH Ur Specific [place] Urine Protein Urine Glucose (UA) Urine Ketones Urine Blood Urine Nitrite Urine Bilirubin Urine Urobilinogen Ur Leukocyte Esterase Urine WBC (Auto) Urine RBC (Auto) Urine Casts (Auto) U Epithel Cells (Auto) Urine Bacteria (Auto) 03/05/19 03/05/19 03/05/19 05:30 05:30 12:25 WBC RBC Hgb Hct MCV MCH MCHC RDW Plt Count MPV Absolute Neuts (auto) Neutrophils % Lymphocytes % Monocytes % Eosinophils % Basophils % Nucleated RBC % Sodium 142 Potassium 4.7 Chloride 113 H Carbon Dioxide 23 Anion Gap 7 L BUN 17.7 Creatinine 1.2 Est GFR (CKD-EPI)AfAm 64.88 Est GFR (CKD-EPI)NonAf 55.98 Random Glucose 161 H Hemoglobin A1c % 5.9 Calcium 8.5 Phosphorus 1.8 L Magnesium 2.6 H Total Bilirubin 0.3 AST 10 L ALT 14 Alkaline Phosphatase 73 Total Protein 6.1 L Albumin 3.0 L Urine Color Yellow Urine Appearance Clear Urine pH 6.5 Ur Specific [place] 1.007 L Urine Protein Negative Urine Glucose (UA) Negative Urine Ketones Negative Urine Blood Negative Urine Nitrite Negative Urine Bilirubin Negative Urine Urobilinogen 0.2 Ur Leukocyte Esterase 1+ H Urine WBC (Auto) 1 Urine RBC (Auto) 1 Urine Casts (Auto) 1 U Epithel Cells (Auto) 0.3 Urine Bacteria (Auto) 2.2 CT facial bones results pending ASSESSMENT AND PLAN: 83 yom with PMHx of HTN, COPD, BPH, ASA allergy, admitted with sudden onset of rabia-orbital swelling/dysphagia/"Scratchy sensation in throat" reported after having chicken and rice -Rabia-orbital edema/Dysphagia, Suspect allergic reaction, ?Chicken and rice vs ARB vs unknown trigger -HTN -COPD -BPH -h/o ASA Allergy Plans: Symptoms improved. Similar prior history x 1. ?Trigger. Will dc losartan for now. CT orbits to assess extent of edema ENT input if persistent throat symptoms or new concerns. respiratory status stable Continue Solumedrol/H1/H2 blockers for now Epi-pen education Will dc in 24-48 hours on PO Prednisone taper and Epi-pen if symptoms continue to improve and no concerns on imaging. Discussed with patient and aide at bedside.
[2019-03-05 15:19] LABS: COCAINE, UR NEGATIVE ng/ml (CUTOFF=300); METHADONE, UR NEGATIVE ng/ml (CUTOFF=300); OPIATES, URI NEGATIVE ng/ml (CUTOFF=300); PHENCYCLIDINE,URINE NEGATIVE ng/ml (CUTOFF=25); URINE AMPHETAMINES NEGATIVE ng/ml (CUTOFF=500); URINE BARBITURATES NEGATIVE ng/ml (CUTOFF=200); URINE BENZODIAZEPINES NEGATIVE ng/ml (CUTOFF=200)
--- NOTE | 2019-03-05 15:30 | PN ---
Physical Exam: SUBJECTIVE: Patient seen and examined. No acute events overnight. Pt denies any SOB, fevers, chills, or pain. OBJECTIVE: Vital Signs Period Temp Pulse Resp BP Sys/Paige Pulse Ox Last 24 Hr 97.2 F 77-105 15-18 111-143/55-73 95-100 GENERAL: The patient is awake, alert, in no acute distress. HEAD: Normal with no signs of trauma. EYES: PERRL, extraocular movements intact, sclera anicteric, conjunctivitis. Periorbital edema. ENT: Ears normal, nares patent, oropharynx clear without exudates, moist mucous membranes. Throat is visualized with no significant edema. NECK: Trachea midline, full range of motion, supple. LUNGS: Breath sounds equal, clear to auscultation bilaterally, no wheezes, no crackles, no accessory muscle use. No stridor HEART: Regular rate and rhythm, S1, S2 without murmur, rub or gallop. ABDOMEN: Soft, nontender, nondistended, normoactive bowel sounds, no guarding, no rebound, no hepatosplenomegaly, no masses. EXTREMITIES: 2+ pulses, warm, well-perfused, no edema. PSYCH: Normal mood, normal affect. SKIN: Warm, dry, normal turgor, no rashes or lesions noted Laboratory Results - last 24 hr CBC, BMP 03/05/19 05:30 03/05/19 05:30 Active Medications Acetaminophen (Tylenol -) 650 mg PO Q4H PRN PRN Reason: PAIN LEVEL 1-5 Diphenhydramine HCl (Benadryl -) 50 mg PO BID [facility] Last Admin: 03/05/19 11:30 Dose: 50 mg Enoxaparin Sodium (Lovenox -) 40 mg SQ DAILY [facility] Last Admin: 03/05/19 11:30 Dose: 40 mg Famotidine (Pepcid -) 20 mg PO DAILY [facility] Last Admin: 03/05/19 12:10 Dose: 20 mg Methylprednisolone Sodium Succinate (Solu-Medrol -) 40 mg IVPUSH DAILY [facility] Last Admin: 03/05/19 11:30 Dose: 40 mg ASSESSMENT/PLAN: Mr. Cabral is a 83 year old male with PMH of COPD, hypertension, BPH, ASPIRIN ALLERGY, and dementia who presented to the ED with a chief complaint of periorbital edema, difficulty swallowing and scratchy throat prior. Admitted for severe allergic reaction monitoring and electrolyte abnormalities. #Periorbital edema/dysphagia likely 2/2 allergic reaction Allergic reaction to ?chicken and rice vs ARB vs unknown source Will dc losartan for now Pt has asa allergy, but family and aide deny any accidental ingestion Cont Solumedrol 40mg daily, famotidine 40mg daily, and benadryl 50mg BID ENT consult for laryngoscopy CT face and orbits to assess extent of edema: L pre-septal soft tissue swelling Epi-pen education on discharge Monitor airway and breathing #HTN Hold losartan for now, possible allergic reaction #BPH Cont home flomax 0.8mg daily #FEN Oral hydration Na-controlled diet #DVT ppx Lovenox SQ #Dispo Med-surg Will d/c in 1-2 days on po prednisone taper and epi-pen if symptoms improve Visit type - Emergency Visit Emergency Visit: Yes ED Registration Date: 03/05/19 Care time: The patient presented to the Emergency Department on the above date and was hospitalized for further evaluation of their emergent condition. - New Patient This patient is new to me today: Yes Date on this admission: 03/05/19 - Critical Care Critical Care patient: No ATTENDING PHYSICIAN STATEMENT I saw and evaluated the patient. I reviewed the resident's note and discussed the case with the resident. I agree with the resident's findings and plan as documented. SUBJECTIVE: OBJECTIVE: ASSESSMENT AND PLAN:
--- NOTE | 2019-03-05 18:28 | CON.ENT ---
Consult Consult Specialty:: ENT Referred by:: Dr Ramos Reason for Consultation:: allergic reaction, airway swelling - History of Present Illness Chief Complaint: swelling History of Present Illness: pt had sudden onset of swelling and redness, presumed allergic reaction exact trigger unknown no change in medications recently chest had been all red, eyes were swollen shut, throat was more swollen improving since ER treatment and admission to hospital - History Source History Provided By: Patient, Family Member, Medical Record Limitations to Obtaining History: Language Barrier - Alcohol/Substance Use Hx Alcohol Use: No - Smoking History Smoking history: Former smoker Have you smoked in the past 12 months: No Home Medications - Allergies Allergies/Adverse Reactions: Allergies Allergy/AdvReac Type Severity Reaction Status Date / Time aspirin Allergy Severe Difficulty Verified 03/04/19 22:23 Breathing - Home Medications Home Medications: Ambulatory Orders Tamsulosin HCl [Flomax -] 0.8 mg PO HS 10/21/15 Clopidogrel Bisulfate [Plavix] 75 mg PO DAILY 06/22/18 Donepezil HCl [Aricept -] 10 mg PO DAILY 06/22/18 Losartan Potassium [Cozaar -] 25 mg PO DAILY 06/22/18 Tiotropium [place] [Spiriva Respimat] 2.5 mcg IH DAILY 06/22/18 Albuterol Sulfate Inhaler - [Ventolin Hfa Inhaler -] 1 - 2 inh PO Q4H PRN Fluticasone Propionate [Flonase Allergy Relief] 1 sprays NS ASDIR 03/05/19 Omeprazole 20 mg PO DAILY 03/05/19 Physical Exam-ENT Vital Signs: Vital Signs Temperature 97.8 F 03/05/19 08:05 Pulse Rate 74 03/05/19 17:18 Respiratory Rate 21 H 03/05/19 17:18 Blood Pressure 143/73 03/05/19 17:18 O2 Sat by Pulse Oximetry (%) 97 03/05/19 17:18 Constitutional: Yes: Well Nourished, No Distress, Calm Head: Yes: WNL Eyes: Yes: Other (watery edema left upper and lower lid, conjunctiva clear) Nose: Yes: WNL, Septum Deviated (to right anteriorly, no pus or polyp) Nasal Passage: Yes: WNL Oral/Pharynx: Yes: Other (mild swelling of uvula, dentures, flexible laryngoscopy performed: nasopharynx clear, base of tongue normal, epiglottis normal, endolarynx normal, no edema, airrway patent, true and false vocal cords normal, normal mobility abduction adduction voice clear, no stridor or respiratory distress, no pooling of secretions) Outer Ear: Yes: WNL Ear Canal: Yes: WNL Tympanic Membrane: Yes: WNL Neck: Yes: WNL, Other (no mass or node, salivary and thyroid glands WNL) Imaging - Results Chest X-ray: Report Reviewed, Image Reviewed Cat Scan: Report Reviewed, Image Reviewed Problem List - Problems (1) Allergic reaction Assessment/Plan: unknown trigger, pt had severe swelling of face, throat and redness of chest most have significantly improved since admission and treatment. feeling better flexibgle laryngoscopy shows patent airway, no airway edema, minimal edema of uvula seen transorally voice is clear, no stridor or respiratory distress Recommend: continue present management with airway observation diet as tolerated medical management as per medical team advise outpatient evaluation by [facility] after discharge Thank you for consultation Jacob Lewis MD FACS Code(s): T78.40XA - ALLERGY, UNSPECIFIED, INITIAL ENCOUNTER Qualifiers: Encounter type: initial encounter Qualified Code(s): T78.40XA - Allergy, unspecified, initial encounter
[2019-03-05] MEDS ORDERED: TAMSULOSIN HCL 0.4 MG CAP PO SCH (22:00)
[2019-03-06] MEDS ORDERED: EPINEPHrine 1:1,000 0.3 MG/0.3 ML SYR IM PRN (07:43)
[2019-03-06 07:51] LABS: HEMATOCRIT 34.9 % (35.4-49); HEMOGLOBIN 11.4 GM/dL (11.7-16.9); MCH 26.1 pg (25.7-33.7); MCHC 32.6 g/dl (32.0-35.9); MEAN PLT VOLUME 8.7 fl (7.5-11.1); PLATELET COUNT 180 K/MM3 (134-434); RBC 4.36 M/mm3 (4.00-5.60); RDW 14.8 % (11.9-15.9); WHITE BLOOD COUNT 14.5 K/mm3 (4.0-10.0)
[2019-03-06 08:13] LABS: CALCIUM 8.9 mg/dL (8.5-10.1); CREATININE 0.9 mg/dL (0.55-1.3); MAGNESIUM 2.4 mg/dL (1.8-2.4); POTASSIUM 4.3 mmol/L (3.5-5.1)
[2019-03-06] MEDS ORDERED: EPINEPHrine/PF 1 MG/1 ML (1:1,000) AMPULE IM PRN (08:30)
--- NOTE | 2019-03-06 09:19 | PN ---
Progress Note (short form) - Note Progress Note: ENT pt awake, alert, feeling better mildly itchy around left eye no problems swallowing or breathing HR 90 SaO2 94% RA BP 139/60 PE NAD mild edema left upper and lower eyelids oral cavity and oropharynx - clear, patent airway, no edema voice clear and strong, no stridor or respiratory distress Impression: allergic reaction with airway swelling facial swelling, chest eruption markedly improved since admission with treatment PO intake ok, airway stable Recommend: diet as tolerated OK for discharge from ENT perspective to office for follow-up and allergy evaluation after discharge Jacob Lewis MD FACS Problem List - Problems (1) Allergic reaction Code(s): T78.40XA - ALLERGY, UNSPECIFIED, INITIAL ENCOUNTER Qualifiers: Encounter type: initial encounter Qualified Code(s): T78.40XA - Allergy, unspecified, initial encounter
[2019-03-06] MEDS ORDERED: DONEPEZIL HCL 5 MG TABLET (FP) PO SCH (10:00)
[2019-03-06] MEDS ORDERED: PANTOPRAZOLE 20 MG TABLET (FP) PO SCH (10:00)
[2019-03-06] MEDS ORDERED: CLOPIDOGREL BISULFATE 75 MG TABLET (FP) PO SCH (10:00)
[2019-03-06] MEDS ORDERED: TIOTROPIUM BROMIDE 2.5 MCG (SPIRIVA) RESPIMAT INHALER IH SCH (10:00)
[2019-03-06] MEDS ORDERED: PT OWN MED DRAWER 7, Y5N ONE (10:36)
[2019-03-06] MEDS: ENOXAPARIN NA (PORCINE) 40 MG/0.4 ML DISP.SYRIN SQ SCH (10:40)
[2019-03-06] MEDS: FAMOTIDINE 20 MG TABLET PO SCH (10:40)
[2019-03-06] MEDS: diphenhydrAMINE HCL 25 MG CAPSULE (FP) PO SCH (10:40)
[2019-03-06] MEDS: methylPREDNISolone NA SUCC 40 MG/1 ML VIAL IVPUSH SCH (10:41)
[2019-03-06] MEDS ORDERED: DONEPEZIL HCL 10 MG TABLET (FP) PO SCH (10:43)
--- NOTE | 2019-03-06 10:57 | PN ---
Teaching Attending Note Name of Resident: Ninoska Richardson ATTENDING PHYSICIAN STATEMENT I saw and evaluated the patient. I reviewed the resident's note and discussed the case with the resident. I agree with the resident's findings and plan as documented with exceptions below. SUBJECTIVE: Patient seen and examined. markedly improved eye symptoms, no further throat symptoms or dyspnea, tolerating diet well. OBJECTIVE: Vital Signs Period Temp Pulse Resp BP Sys/Paige Pulse Ox Last 24 Hr 97 F-98 F 62-91 13-21 124-154/66-82 96-97 Intake & Output 03/03/19 03/04/19 03/05/19 03/06/19 23:59 23:59 23:59 23:59 Intake Total 120 Balance 120 Weight 160 lb 160 lb General: sitting in bed, no acute distress Neck: soft, supple HEENT: markedly improved left per-orbital swelling, EOMI, PERRL Chest: CTAB, no stridor or wheezing noted Abdomen:soft, NT Extremities: no edema Home Medications Medication Instructions Recorded Tamsulosin HCl [Flomax -] 0.8 mg PO HS 10/21/15 Clopidogrel Bisulfate [Plavix] 75 mg PO DAILY 06/22/18 Donepezil HCl [Aricept -] 10 mg PO DAILY 06/22/18 Tiotropium [place] [Spiriva 2.5 mcg IH DAILY 06/22/18 Respimat] Albuterol Sulfate Inhaler - 1 - 2 inh PO Q4H PRN 03/05/19 [Ventolin HFA Inhaler -] Fluticasone Propionate [Flonase 1 sprays NS ASDIR 03/05/19 Allergy Relief] Omeprazole 20 mg PO DAILY 03/05/19 Diphenhydramine HCl [Benadryl -] 25 mg PO DAILY #30 capsule 03/06/19 Diphenhydramine HCl [Benadryl -] 25 mg PO ONCE PRN #10 capsule 03/06/19 Epinephrine [Epipen] 0.3 mg IJ PRN #5 auto.injct 03/06/19 Famotidine [Pepcid -] 40 mg PO DAILY #7 tablet 03/06/19 Prednisone 10 mg PO DAILY #30 tablet 03/06/19 Laboratory Results - last 24 hr 03/05/19 03/05/19 03/06/19 12:25 12:25 06:20 WBC 14.5 H RBC 4.36 Hgb 11.4 L Hct 34.9 L MCV 80.0 MCH 26.1 MCHC 32.6 RDW 14.8 Plt Count 180 MPV 8.7 Sodium Potassium Chloride Carbon Dioxide Anion Gap BUN Creatinine Est GFR (CKD-EPI)AfAm Est GFR (CKD-EPI)NonAf Random Glucose Calcium Phosphorus Magnesium Urine Color Yellow Urine Appearance Clear Urine pH 6.5 Ur Specific [place] 1.007 L Urine Protein Negative Urine Glucose (UA) Negative Urine Ketones Negative Urine Blood Negative Urine Nitrite Negative Urine Bilirubin Negative Urine Urobilinogen 0.2 Ur Leukocyte Esterase 1+ H Urine WBC (Auto) 1 Urine RBC (Auto) 1 Urine Casts (Auto) 1 U Epithel Cells (Auto) 0.3 Urine Bacteria (Auto) 2.2 Opiates Screen Negative Methadone Screen Negative Barbiturate Screen Negative Phencyclidine Screen Negative Ur Amphetamines Screen Negative MDMA (Ecstasy) Screen Negative Benzodiazepines Screen Negative Cocaine Screen Negative U Marijuana (THC) Screen Negative 03/06/19 06:20 WBC RBC Hgb Hct MCV MCH MCHC RDW Plt Count MPV Sodium 143 Potassium 4.3 Chloride 112 H Carbon Dioxide 26 Anion Gap 4 L BUN 21.0 H Creatinine 0.9 Est GFR (CKD-EPI)AfAm 91.86 Est GFR (CKD-EPI)NonAf 79.26 Random Glucose 100 Calcium 8.9 Phosphorus 4.0 Magnesium 2.4 Urine Color Urine Appearance Urine pH Ur Specific [place] Urine Protein Urine Glucose (UA) Urine Ketones Urine Blood Urine Nitrite Urine Bilirubin Urine Urobilinogen Ur Leukocyte Esterase Urine WBC (Auto) Urine RBC (Auto) Urine Casts (Auto) U Epithel Cells (Auto) Urine Bacteria (Auto) Opiates Screen Methadone Screen Barbiturate Screen Phencyclidine Screen Ur Amphetamines Screen MDMA (Ecstasy) Screen Benzodiazepines Screen Cocaine Screen U Marijuana (THC) Screen CT facial bones results reviewed ASSESSMENT AND PLAN: 83 yom with PMHx of HTN, COPD, BPH, ASA allergy, admitted with sudden onset of rabia-orbital swelling/dysphagia/"Scratchy sensation in throat" reported after having chicken and rice -Rabia-orbital edema/Dysphagia, Suspect allergic reaction, ?Chicken and rice vs ARB vs unknown trigger -HTN -COPD -BPH -h/o ASA Allergy Plans: markedly improved Hemodynamics stable. Tolerating diet. ENT input appreciated. Unclear trigger. d/c ARB, discuss with patient/family to add to allergy list for now. Prednisone taper Short course of H1/H2 blockers till symptoms fully resolve Epi-pen education provided. dc home today with outpatient Director Emergency Services follow up Discussed with patient and aide at bedside.
--- NOTE | 2019-03-06 11:34 | DS ---
Physical Exam: SUBJECTIVE: Patient seen and examined. No acute events overnight. Pt is feeling better and denies any SOB or persistent dysphagia. Mild itchiness around L eye. Tolerating diet well. OBJECTIVE: Vital Signs Period Temp Pulse Resp BP Sys/Paige Pulse Ox Last 24 Hr 97 F-98 F 62-91 13-21 124-154/66-82 96-97 PHYSICAL EXAM GENERAL: The patient is awake, alert, in no acute distress. HEAD: Normal with no signs of trauma. EYES: PERRL, extraocular movements intact, sclera anicteric, mild conjunctivitis. Periorbital edema L>R, improving. ENT: Ears normal, nares patent, oropharynx clear without exudates, moist mucous membranes. Throat is visualized with no significant edema. NECK: Trachea midline, full range of motion, supple. LUNGS: Breath sounds equal, clear to auscultation bilaterally, no wheezes, no crackles, no accessory muscle use. No stridor HEART: Regular rate and rhythm, S1, S2 without murmur, rub or gallop. ABDOMEN: Soft, nontender, nondistended, normoactive bowel sounds, no guarding, no rebound, no hepatosplenomegaly, no masses. EXTREMITIES: 2+ pulses, warm, well-perfused, no edema. SKIN: Warm, dry, normal turgor, no rashes or lesions noted LABS Laboratory Results - last 24 hr CBC, BMP 03/06/19 06:20 03/06/19 06:20 HOSPITAL COURSE: Date of Admission:03/05/19 Mr. Cabral is an 83 year old male with PMH of COPD, hypertension, BPH, ASPIRIN ALLERGY, and dementia who presented to the ED with a chief complaint of periorbital edema, difficulty swallowing and scratchy throat. He was admitted for severe allergic reaction monitoring. On admission, pt was hypernatremic, hypokalemic, hypocalcium and hypomagnesium. He was treated with fluids and electrolytes were repleted (likely 2/2 dehydration/poor po intake and malnutrition). EKG showed NSR with no T wave changes or ST elevations. He was tachycardic, but satting well on room air. CXR showed no acute pathology, infiltrates or congestion. Pt was started on IV solumedrol, pepcid, and benadryl. CT face showed moderate pre-septal soft tissue swelling L>R. ENT was consulted and performed a laryngoscopy which showed a patent airway, no airway edema, and minimal edema of uvula. Pt's swelling and dysphagia improved with treatment. He takes Losartan at home for HTN. We d/c'ed his losartan and advised him to avoid RICHIE inhibitors and ARBs in the future. His vitals are stable and he is clinically stable to be discharged home with steroid taper, benadryl, pepcid, and an EpiPen as well as instructions on how to use. Pt will be referred to an Mold Polisher to f/u as outpatient. Date of Discharge: 03/06/19 Minutes to complete discharge: 45 Discharge Summary Problems reviewed: Yes Reason For Visit: ALLERGY REACTION,HYPOKALEMIA Current Active Problems Allergic reaction (Acute) Condition: Stable - Instructions Diet, Activity, Other Instructions: Your visit: You were admitted to the hospital for facial swelling and difficulty swallowing , likely caused by an allergic reaction. We treated you with medications and monitored you closely overnight; your breathing and swelling improved. An Ear Nose and Throat doctor (Development Eng), Dr. Lewis, saw you and performed a Laryngoscopy (looked at the back of your throat). There were no abnormalities or signs of active disease. Medications: You should take Prednisone at home as follows: - Take 40mg prednisone (4 pills) once a day for THREE DAYS, then - Take 30mg prednisone (3 pills) once a day for THREE DAYS, then - Take 20mg prednisone (2 pills) once a day for THREE DAYS, then - Take 10mg prednisone (1 pill) once a day for THREE DAYS. You should take Benadryl 25mg daily for one 5-7 days or until your facial swelling resolves. We prescribed you with extra of this medication that you can use, as needed, in the future if you experience facial swelling, rash, or difficulty breathing. Please be aware that this medication may make you feel drowsy. You should avoid taking more than 50mg a day and STOP taking it if it is making you feel increasingly sleepy or lethargic. You should take Pepcid 40mg daily for one week. DO NOT take your Omeprazole while you are taking the Pepcid. You can resume Omeprazole once you complete the Pepcid medication. We STOPPED your Losartan medication as this may be the cause of your facial swelling, cough, and difficulty swallowing. You should STOP taking Losartan at home and closely monitor your blood pressure. Call 911 or return to the emergency department if your blood pressure is greater than 180/110. Avoid taking Losartan and other RICHIE inhibitors or ARB (Angiotensin receptor antagonist ) medications at all in the future. We added these medications to your allergy list. Please see your primary care provider in one week to discuss further management of your blood pressure medications. Resume all other home medications as prescribed. Follow-up: - Please visit your primary care provider, Dr. Wheat, in one week to review the changes made in your blood pressure medications. - Please follow up with an measurement and verification engineer, Dr. De León, in one week to evaluate your symptoms and help identify the trigger of your allergies. We provided you with a referral. Additional Instructions: - You should AVOID taking RICHIE Inhibitors and ARB medications for blood pressure in the future as these may be causing your symptoms. - We are providing you with an EpiPen to use if you experience any future allergic reactions (facial swelling, difficulty breathing, or difficulty swallowing). Here are instructions on how to use the Epi-pen: 1. Carefully remove the EpiPen from its clear carrier tube. 2. Preparation Department Supervisor the barrel of the EpiPen in your dominant hand so the orange tip points downward. Make sure your fingers aren't close ot either end of the EpiPen. 3. Use your other hand to pull straight up on and remove the blue safety release. Don't twist or bend it. 4. Firmly place the orange tip of the EpiPen against the middle part of your upper thigh, pushing until it makes a click noise. This lets you know the epinephrine injection is underway. 5. Hold the EpiPen in place for at least 3 seconds, counting off slowly, before removing it from your thigh. 6. Use your fingers to gently massage the area of the injection for about 10 seconds. 7. Call 911 to seek emergency care, or tell someone close to you to call. >>An EpiPen can be administered through clothes if necessary. >>If you do not feel better or get worse, you can inject another dose of EpiPen 5 to 15 minutes after the first injection. DO NOT inject more than 2 injections right after each other. Call 911 or return to the emergency department if you experience difficulty breathing, difficulty swallowing, rash, increased swelling of your face, chest pain, fevers >101, or any other symptoms. Referrals: Randy De León MD [Non Staff, Medical] - Viraj Wheat MD [Primary Care Provider] - Disposition: HOME - Home Medications Comprehensive Discharge Medication List: Ambulatory Orders Tamsulosin HCl [Flomax -] 0.8 mg PO HS 10/21/15 Clopidogrel Bisulfate [Plavix] 75 mg PO DAILY 06/22/18 Donepezil HCl [Aricept -] 10 mg PO DAILY 06/22/18 Tiotropium [place] [Spiriva Respimat] 2.5 mcg IH DAILY 06/22/18 Albuterol Sulfate Inhaler - [Ventolin HFA Inhaler -] 1 - 2 inh PO Q4H PRN Fluticasone Propionate [Flonase Allergy Relief] 1 sprays NS ASDIR 03/05/19 Omeprazole 20 mg PO DAILY 03/05/19 Diphenhydramine HCl [Benadryl -] 25 mg PO DAILY #10 capsule 03/06/19 Diphenhydramine HCl [Benadryl -] 25 mg PO ONCE PRN #10 capsule 03/06/19 Epinephrine [Epipen] 0.3 mg IJ PRN #5 auto.injct 03/06/19 Famotidine [Pepcid -] 40 mg PO DAILY #7 tablet 03/06/19 predniSONE [Deltasone -] See Taper PO DAILY #30 tab 03/06/19 This patient is new to me today: No Emergency Visit: No Critical Care patient: No - Discharge Referral Referred to [facility] No ATTENDING PHYSICIAN STATEMENT I saw and evaluated the patient. I reviewed the resident's note and discussed the case with the resident. I agree with the resident's findings and plan as documented. SUBJECTIVE: OBJECTIVE: ASSESSMENT AND PLAN:
[2019-03-06 13:39] VITALS: BP 123/73; PULSE 92; TEMP 98.2
== END 2019-03-06 13:45 | disposition home or self-care (01) | DRG 916 ==
LOC: JER 20:50 → JERBED 23:34 → OBSVTOIN 03-05 03:16 → J2W 03-05 17:48
PROVIDERS: ADMIT Internal Medicine; ATTEND Hospitalist
PROC: 0CJS8ZZ Inspection of Larynx, Via Natural or Artificial Opening Endoscopic (ICD-10-PCS; principal; 2019-03-05)
DX: T78.49XA Other allergy, initial encounter (principal); E87.0 Hyperosmolality and hypernatremia; E46 Unspecified protein-calorie malnutrition; J44.9 Chronic obstructive pulmonary disease, unspecified; I10 Essential (primary) hypertension; E87.6 Hypokalemia; E83.42 Hypomagnesemia; E83.51 Hypocalcemia; R73.9 Hyperglycemia, unspecified; F03.90 Unspecified dementia, unspecified severity, without behavioral disturbance, psychotic disturbance, mood disturbance, and anxiety; E86.0 Dehydration; N40.0 Benign prostatic hyperplasia without lower urinary tract symptoms; R00.0 Tachycardia, unspecified; R13.10 Dysphagia, unspecified; H05.223 Edema of bilateral orbit; E88.09 Other disorders of plasma-protein metabolism, not elsewhere classified; Z88.6 Allergy status to analgesic agent
CPT/HCPCS: 36415; 70486-TC; 71045-TC-FY; 80048; 80053; 80307; 81003; 83036; 83735; 83970; 84100; 85025; 85027; 93005; 93010; 97161-GP; 99285-25; G0378

== ENCOUNTER 2022-02-02 20:10 | Inpatient (IN) | payer OTHER ==
[2022-02-02] MEDS ORDERED: ALBUTEROL SO4 2.5/IPRATROPIUM 0.5 INH SOL 3 ML VIAL.NEB. NEB ONE ×3 (20:35→22:16)
[2022-02-02] MEDS ORDERED: DEXAMETHASONE SOD PHOSPHATE 10 MG/1 ML VIAL IVPUSH ONE (20:37)
[2022-02-02] MEDS ORDERED: DEXAMETHASONE SOD PHOSPHATE 4 MG/1 ML VIAL ONE (20:45)
[2022-02-02] MEDS ORDERED: PIPERACILLIN/TAZOB 3.375 GM 3.375 GM in DEXTROSE 5%-WATER - 50 ML IVPB ONE (21:02)
[2022-02-02] MEDS ORDERED: ACETAMINOPHEN 1000 MG/100 ML BAG IVPB ONE (21:10)
[2022-02-02 21:26] LABS: BASO % 0.2 % (0-2.0); HEMATOCRIT 36.8 % (35.4-49); HEMOGLOBIN 11.6 GM/dL (11.7-16.9); LYMPH % 5.9 % (8-40); MCH 23.3 pg (25.7-33.7); MCHC 31.7 g/dl (32.0-35.9); MEAN CELL VOLUME 73.6 fl (80-96); MEAN PLT VOLUME 7.7 fl (7.5-11.1); MONO % 12.6 % (3.8-10.2); NEUT % 81.3 % (42.8-82.8); PLATELET COUNT 167 10^3/uL (134-434); RBC 4.99 M/mm3 (4.00-5.60); RDW 15.8 % (11.9-15.9); WHITE BLOOD COUNT 6.2 K/mm3 (4.0-10.0)
[2022-02-02] MEDS ORDERED: ACETAMINOPHEN INJECTION 100 ML IVPB ONE (21:26)
[2022-02-02] MEDS ORDERED: PIPERACILLIN/TAZOB 3.375 GM 3.375 GM/50 ML BAG IVPB ONE (21:28)
[2022-02-02 21:42] LABS: CHLORIDE 103 mmol/L (98-107); SODIUM 138 mmol/L (136-145)
[2022-02-02 21:44] LABS: ALBUMIN 3.4 g/dl (3.4-5.0); ANION GAP 9 MMOL/L (8-16); BLOOD UREA NITROGEN 14.6 mg/dL (7-18); CALCIUM 8.4 mg/dL (8.5-10.1); CO2 26 mmol/L (21-32); GLUCOSE,RANDOM 110 mg/dL (74-106)
[2022-02-02 21:47] LABS: CREATININE 1.5 mg/dL (0.55-1.3); SGOT/AST 24 U/L (15-37)
[2022-02-02 21:48] LABS: BILIRUBIN,TOTAL 0.6 mg/dL (0.2-1); SGPT/ALT 18 U/L (13-61); TOT PROT 7.6 g/dl (6.4-8.2)
[2022-02-02 21:50] LABS: ALK PHOS 93 U/L (45-117)
[2022-02-02] MEDS ORDERED: SODIUM CHLORIDE 0.9% 500 ML INFUS.BAG IV ONE (21:54)
[2022-02-02] MEDS ORDERED: LIDOCAINE HCL 2% JELLY 11 ML TP ONE (22:06)
[2022-02-02 22:46] LABS: EPI CELLS 24 /uL (0-25.1); HYALINE CASTS 2 /uL (0-3.1); URINE APPEARANCE CLEAR; URINE BACTERIA 8 /uL (0-1359); URINE BILIRUBIN NEGATIVE (NEGATIVE); URINE COLOR YELLOW; URINE GLUCOSE (UA) NEGATIVE (NEGATIVE); URINE KETONE 1+ (NEGATIVE); URINE LEUK ESTERASE NEGATIVE (NEGATIVE); URINE NITRITE NEGATIVE (NEGATIVE); URINE PROTEIN 2+ (NEGATIVE); URINE RBC 2206 /uL (0-23.9); URINE UROBILINOGEN 0.2 mg/dL (0.2-1.0); URINE WBC 27 /uL (0-25.8)
[2022-02-03] MEDS ORDERED: amLODIPine BESYLATE 5 MG TABLET (FP) ONE (08:56)
[2022-02-03] MEDS ORDERED: PANTOPRAZOLE 40 MG TABLET PO ONE (08:56)
[2022-02-03] MEDS ORDERED: CLOPIDOGREL BISULFATE 75 MG TABLET (FP) ONE (08:56)
[2022-02-03] MEDS ORDERED: ENOXAPARIN NA (PORCINE) 40 MG/0.4 ML DISP.SYRIN SQ ONE (08:57)
[2022-02-03] MEDS ORDERED: CEFTRIAXONE 1 GM/50 ML BAG ONE (08:57)
[2022-02-03] MEDS: CEFTRIAXONE 1 GM in DEXTROSE 5%-WATER - 50 ML IVPB SCH ×2 (09:10→11:23)
[2022-02-03] MEDS: LACTATED RINGERS SOLUTION 1,000 ML/1,000 ML INFUS.BAG IV SCH (09:10)
[2022-02-03] MEDS: CLOPIDOGREL BISULFATE 75 MG TABLET (FP) PO SCH (09:11)
[2022-02-03] MEDS: amLODIPine BESYLATE 5 MG TABLET (FP) PO SCH (09:11)
[2022-02-03] MEDS: PANTOPRAZOLE 40 MG TABLET PO SCH (09:11)
[2022-02-03] MEDS: ENOXAPARIN NA (PORCINE) 40 MG/0.4 ML DISP.SYRIN SQ SCH (09:11)
[2022-02-03] MEDS ORDERED: TIOTROPIUM BROMIDE 2.5 MCG (SPIRIVA) RESPIMAT INHALER IH SCH (10:00)
[2022-02-03] MEDS ORDERED: AZITHROMYCIN IVPB 500 MG/250 ML BAG IVPB SCH (10:00)
[2022-02-03] MEDS ORDERED: TAMSULOSIN HCL 0.4 MG CAP PO SCH (10:00)
[2022-02-03] MEDS ORDERED: AZITHROMYCIN IVPB 500 MG/250 ML BAG IVPB ONE (11:20)
[2022-02-03] MEDS ORDERED: ALBUTEROL SO4 2.5/IPRATROPIUM 0.5 INH SOL 3 ML VIAL.NEB. NEB PRN (12:55)
[2022-02-03] MEDS ORDERED: ALBUTEROL SO4 0.083% IH SOL 2.5 MG/3 ML VIAL.NEB. NEB PRN (14:55)
[2022-02-03 15:44] VITALS: BMI 27.3
[2022-02-03 15:56] LABS: BASO % 0.1 % (0-2.0); HEMATOCRIT 34.5 % (35.4-49); HEMOGLOBIN 11.1 GM/dL (11.7-16.9); LYMPH % 5.3 % (8-40); MCH 23.8 pg (25.7-33.7); MCHC 32.3 g/dl (32.0-35.9); MEAN CELL VOLUME 73.6 fl (80-96); MEAN PLT VOLUME 6.8 fl (7.5-11.1); MONO % 13.2 % (3.8-10.2); NEUT % 81.4 % (42.8-82.8); PLATELET COUNT 149 10^3/uL (134-434); RBC 4.68 M/mm3 (4.00-5.60); WHITE BLOOD COUNT 9.5 K/mm3 (4.0-10.0)
[2022-02-03 16:26] LABS: ALBUMIN 2.8 g/dl (3.4-5.0); BLOOD UREA NITROGEN 17.8 mg/dL (7-18); CALCIUM 8.5 mg/dL (8.5-10.1); MAGNESIUM 2.3 mg/dL (1.8-2.4)
[2022-02-03 16:29] LABS: CREATININE 1.3 mg/dL (0.55-1.3); PHOSPHOROUS 1.9 mg/dL (2.5-4.9)
[2022-02-03 16:30] LABS: BILIRUBIN,TOTAL 0.5 mg/dL (0.2-1); TOT PROT 6.8 g/dl (6.4-8.2)
[2022-02-03] MEDS: PIPERACILLIN/TAZOB 3.375 GM 3.375 GM in DEXTROSE 5%-WATER - 50 ML IVPB SCH (17:38)
[2022-02-03] MEDS: ALBUTEROL SO4 2.5/IPRATROPIUM 0.5 INH SOL 3 ML VIAL.NEB. NEB SCH (21:31)
[2022-02-03] MEDS: methylPREDNISolone NA SUCC 40 MG/1 ML VIAL IVPUSH SCH (21:46)
[2022-02-03] MEDS: DONEPEZIL HCL 10 MG TABLET (FP) PO SCH (21:46)
[2022-02-04] MEDS: PIPERACILLIN/TAZOB 3.375 GM 3.375 GM in DEXTROSE 5%-WATER - 50 ML IVPB SCH ×3 (01:24→17:37)
[2022-02-04] MEDS: LACTATED RINGERS SOLUTION 1,000 ML/1,000 ML INFUS.BAG IV SCH ×2 (06:15→21:03)
[2022-02-04] MEDS: ALBUTEROL SO4 2.5/IPRATROPIUM 0.5 INH SOL 3 ML VIAL.NEB. NEB SCH ×3 (08:01→20:13)
[2022-02-04 09:22] LABS: HEMATOCRIT 35.2 % (35.4-49); HEMOGLOBIN 11.4 GM/dL (11.7-16.9); LYMPH % 10.1 % (8-40); MCH 23.9 pg (25.7-33.7); MCHC 32.5 g/dl (32.0-35.9); MEAN CELL VOLUME 73.6 fl (80-96); MEAN PLT VOLUME 8.1 fl (7.5-11.1); MONO % 4.8 % (3.8-10.2); NEUT % 85.1 % (42.8-82.8); PLATELET COUNT 148 10^3/uL (134-434); RBC 4.78 M/mm3 (4.00-5.60); RDW 16.3 % (11.9-15.9); WHITE BLOOD COUNT 9.1 K/mm3 (4.0-10.0)
[2022-02-04] MEDS: PANTOPRAZOLE 40 MG TABLET PO SCH (09:50)
[2022-02-04] MEDS: ENOXAPARIN NA (PORCINE) 40 MG/0.4 ML DISP.SYRIN SQ SCH (09:50)
[2022-02-04] MEDS: amLODIPine BESYLATE 5 MG TABLET (FP) PO SCH (09:50)
[2022-02-04] MEDS: CLOPIDOGREL BISULFATE 75 MG TABLET (FP) PO SCH (09:50)
[2022-02-04] MEDS: methylPREDNISolone NA SUCC 40 MG/1 ML VIAL IVPUSH SCH ×2 (09:52→21:02)
[2022-02-04] MEDS: ACETAMINOPHEN 500 MG TABLET (FP) PO PRN ×3 (09:54→21:23)
[2022-02-04 09:55] LABS: ALBUMIN 2.9 g/dl (3.4-5.0); CALCIUM 8.6 mg/dL (8.5-10.1)
[2022-02-04 09:57] LABS: CREATININE 1.2 mg/dL (0.55-1.3); TOT PROT 6.9 g/dl (6.4-8.2)
[2022-02-04 09:58] LABS: BILIRUBIN,TOTAL 0.5 mg/dL (0.2-1)
[2022-02-04] MEDS ORDERED: CEFTRIAXONE 2 GM in DEXTROSE 5%-WATER 100 ML IVPB SCH (10:00)
[2022-02-04] MEDS: DONEPEZIL HCL 10 MG TABLET (FP) PO SCH (21:02)
[2022-02-05] MEDS: PIPERACILLIN/TAZOB 3.375 GM 3.375 GM in DEXTROSE 5%-WATER - 50 ML IVPB SCH ×3 (02:11→17:27)
[2022-02-05] MEDS: ACETAMINOPHEN 500 MG TABLET (FP) PO PRN ×2 (06:13→22:30)
[2022-02-05] MEDS: ALBUTEROL SO4 2.5/IPRATROPIUM 0.5 INH SOL 3 ML VIAL.NEB. NEB SCH ×3 (08:14→19:38)
[2022-02-05] MEDS: LACTATED RINGERS SOLUTION 1,000 ML/1,000 ML INFUS.BAG IV SCH ×2 (09:00→23:08)
[2022-02-05] MEDS: CLOPIDOGREL BISULFATE 75 MG TABLET (FP) PO SCH (09:27)
[2022-02-05] MEDS: PANTOPRAZOLE 40 MG TABLET PO SCH (09:27)
[2022-02-05] MEDS: methylPREDNISolone NA SUCC 40 MG/1 ML VIAL IVPUSH SCH (09:27)
[2022-02-05] MEDS: ENOXAPARIN NA (PORCINE) 40 MG/0.4 ML DISP.SYRIN SQ SCH (09:27)
[2022-02-05] MEDS: amLODIPine BESYLATE 5 MG TABLET (FP) PO SCH (09:27)
[2022-02-05] MEDS: DONEPEZIL HCL 10 MG TABLET (FP) PO SCH (22:30)
[2022-02-06] MEDS: PIPERACILLIN/TAZOB 3.375 GM 3.375 GM in DEXTROSE 5%-WATER - 50 ML IVPB SCH ×3 (01:14→17:36)
[2022-02-06] MEDS: ACETAMINOPHEN 500 MG TABLET (FP) PO PRN (05:58)
[2022-02-06] MEDS: ALBUTEROL SO4 2.5/IPRATROPIUM 0.5 INH SOL 3 ML VIAL.NEB. NEB SCH ×3 (07:30→20:33)
[2022-02-06] MEDS: LACTATED RINGERS SOLUTION 1,000 ML/1,000 ML INFUS.BAG IV SCH (10:40)
[2022-02-06] MEDS: CLOPIDOGREL BISULFATE 75 MG TABLET (FP) PO SCH (10:41)
[2022-02-06] MEDS: PANTOPRAZOLE 40 MG TABLET PO SCH (10:41)
[2022-02-06] MEDS: amLODIPine BESYLATE 5 MG TABLET (FP) PO SCH (10:41)
[2022-02-06] MEDS: ENOXAPARIN NA (PORCINE) 40 MG/0.4 ML DISP.SYRIN SQ SCH (10:41)
[2022-02-06 14:21] LABS: BASO % 0.1 % (0-2.0); HEMATOCRIT 35.8 % (35.4-49); HEMOGLOBIN 11.2 GM/dL (11.7-16.9); LYMPH % 12.2 % (8-40); MCH 23.1 pg (25.7-33.7); MCHC 31.3 g/dl (32.0-35.9); MEAN CELL VOLUME 73.9 fl (80-96); MEAN PLT VOLUME 8.2 fl (7.5-11.1); MONO % 15.3 % (3.8-10.2); NEUT % 72.4 % (42.8-82.8); PLATELET COUNT 156 10^3/uL (134-434); RBC 4.84 M/mm3 (4.00-5.60); RDW 16.6 % (11.9-15.9); WHITE BLOOD COUNT 6.2 K/mm3 (4.0-10.0)
[2022-02-06 14:47] LABS: CALCIUM 8.1 mg/dL (8.5-10.1)
[2022-02-06 14:48] LABS: BLOOD UREA NITROGEN 15.4 mg/dL (7-18); MAGNESIUM 2.2 mg/dL (1.8-2.4)
[2022-02-06 14:51] LABS: CREATININE 1.1 mg/dL (0.55-1.3)
[2022-02-06] MEDS: DONEPEZIL HCL 10 MG TABLET (FP) PO SCH (21:41)
[2022-02-07] MEDS: PIPERACILLIN/TAZOB 3.375 GM 3.375 GM in DEXTROSE 5%-WATER - 50 ML IVPB SCH ×3 (01:21→17:43)
[2022-02-07] MEDS: LACTATED RINGERS SOLUTION 1,000 ML/1,000 ML INFUS.BAG IV SCH ×2 (04:42→13:48)
[2022-02-07] MEDS: ALBUTEROL SO4 2.5/IPRATROPIUM 0.5 INH SOL 3 ML VIAL.NEB. NEB SCH ×3 (07:21→20:43)
[2022-02-07 09:08] LABS: BASO % 0.1 % (0-2.0); EOS % 0.5 % (0-4.5); HEMATOCRIT 36.1 % (35.4-49); HEMOGLOBIN 11.3 GM/dL (11.7-16.9); LYMPH % 13.7 % (8-40); MCHC 31.4 g/dl (32.0-35.9); MEAN CELL VOLUME 73.2 fl (80-96); MEAN PLT VOLUME 8.3 fl (7.5-11.1); MONO % 15.9 % (3.8-10.2); NEUT % 69.8 % (42.8-82.8); PLATELET COUNT 152 10^3/uL (134-434); RBC 4.93 M/mm3 (4.00-5.60); RDW 16.1 % (11.9-15.9); WHITE BLOOD COUNT 6.6 K/mm3 (4.0-10.0)
[2022-02-07 09:32] LABS: CALCIUM 8.4 mg/dL (8.5-10.1)
[2022-02-07 09:33] LABS: BLOOD UREA NITROGEN 13.3 mg/dL (7-18)
[2022-02-07 09:36] LABS: CREATININE 1.1 mg/dL (0.55-1.3)
[2022-02-07] MEDS: ENOXAPARIN NA (PORCINE) 40 MG/0.4 ML DISP.SYRIN SQ SCH (12:46)
[2022-02-07] MEDS: CLOPIDOGREL BISULFATE 75 MG TABLET (FP) PO SCH (12:47)
[2022-02-07] MEDS: PANTOPRAZOLE 40 MG TABLET PO SCH (12:47)
[2022-02-07] MEDS: amLODIPine BESYLATE 5 MG TABLET (FP) PO SCH (12:47)
[2022-02-07] MEDS: DONEPEZIL HCL 10 MG TABLET (FP) PO SCH (21:40)
[2022-02-08] MEDS: PIPERACILLIN/TAZOB 3.375 GM 3.375 GM in DEXTROSE 5%-WATER - 50 ML IVPB SCH ×3 (01:17→18:21)
[2022-02-08] MEDS: LACTATED RINGERS SOLUTION 1,000 ML/1,000 ML INFUS.BAG IV SCH ×2 (05:35→12:09)
[2022-02-08] MEDS: ALBUTEROL SO4 2.5/IPRATROPIUM 0.5 INH SOL 3 ML VIAL.NEB. NEB SCH ×3 (09:03→20:30)
[2022-02-08 09:25] LABS: BASO % 0.1 % (0-2.0); EOS % 2.3 % (0-4.5); HEMATOCRIT 36.5 % (35.4-49); HEMOGLOBIN 11.9 GM/dL (11.7-16.9); LYMPH % 13.1 % (8-40); MCH 23.7 pg (25.7-33.7); MCHC 32.5 g/dl (32.0-35.9); MEAN CELL VOLUME 72.8 fl (80-96); MEAN PLT VOLUME 7.7 fl (7.5-11.1); MONO % 13.3 % (3.8-10.2); NEUT % 71.2 % (42.8-82.8); PLATELET COUNT 138 10^3/uL (134-434); RBC 5.01 M/mm3 (4.00-5.60); RDW 15.9 % (11.9-15.9); WHITE BLOOD COUNT 6.5 K/mm3 (4.0-10.0)
[2022-02-08 09:59] LABS: CALCIUM 8.3 mg/dL (8.5-10.1)
[2022-02-08 10:00] LABS: ALBUMIN 2.7 g/dl (3.4-5.0); BLOOD UREA NITROGEN 12.6 mg/dL (7-18)
[2022-02-08 10:04] LABS: BILIRUBIN,TOTAL 0.6 mg/dL (0.2-1); TOT PROT 6.5 g/dl (6.4-8.2)
[2022-02-08] MEDS: CLOPIDOGREL BISULFATE 75 MG TABLET (FP) PO SCH (11:06)
[2022-02-08] MEDS: PANTOPRAZOLE 40 MG TABLET PO SCH (11:06)
[2022-02-08] MEDS: ENOXAPARIN NA (PORCINE) 40 MG/0.4 ML DISP.SYRIN SQ SCH (11:06)
[2022-02-08] MEDS: amLODIPine BESYLATE 5 MG TABLET (FP) PO SCH (11:06)
[2022-02-08] MEDS: DONEPEZIL HCL 10 MG TABLET (FP) PO SCH (22:01)
[2022-02-09] MEDS: PIPERACILLIN/TAZOB 3.375 GM 3.375 GM in DEXTROSE 5%-WATER - 50 ML IVPB SCH ×3 (01:09→17:38)
[2022-02-09] MEDS ORDERED: PIPERACILLIN/TAZOBACTAM 3.375 GM VIAL IVPB ONE (01:17)
[2022-02-09] MEDS: LACTATED RINGERS SOLUTION 1,000 ML/1,000 ML INFUS.BAG IV SCH (05:42)
[2022-02-09 08:05] LABS: HEMATOCRIT 35.3 % (35.4-49); HEMOGLOBIN 11.1 GM/dL (11.7-16.9); MCH 23.1 pg (25.7-33.7); MCHC 31.5 g/dl (32.0-35.9); MEAN CELL VOLUME 73.4 fl (80-96); MEAN PLT VOLUME 8.4 fl (7.5-11.1); PLATELET COUNT 173 10^3/uL (134-434); RBC 4.81 M/mm3 (4.00-5.60); RDW 16.3 % (11.9-15.9); WHITE BLOOD COUNT 4.9 K/mm3 (4.0-10.0)
[2022-02-09 08:22] LABS: ALBUMIN 2.5 g/dl (3.4-5.0); BLOOD UREA NITROGEN 11.2 mg/dL (7-18); MAGNESIUM 2.4 mg/dL (1.8-2.4)
[2022-02-09] MEDS: ALBUTEROL SO4 2.5/IPRATROPIUM 0.5 INH SOL 3 ML VIAL.NEB. NEB SCH ×3 (08:22→20:38)
[2022-02-09 08:25] LABS: CREATININE 1.1 mg/dL (0.55-1.3)
[2022-02-09 08:26] LABS: BILIRUBIN,TOTAL 0.6 mg/dL (0.2-1); TOT PROT 6.1 g/dl (6.4-8.2)
[2022-02-09 09:21] LABS: ANISOCYTOSIS 0; HELMET CELLS 0; HOWELL-JOLLY BODIES 0; MACROCYTOSIS 0; OVALOCYTE 0; ROULEAU 0; SICKELED CELLS 0; TARGET CELLS 0; TEAR DROP CELLS 0; TOXIC GRANULATION 0
[2022-02-09] MEDS: amLODIPine BESYLATE 5 MG TABLET (FP) PO SCH (10:14)
[2022-02-09] MEDS: CLOPIDOGREL BISULFATE 75 MG TABLET (FP) PO SCH (10:14)
[2022-02-09] MEDS: PANTOPRAZOLE 40 MG TABLET PO SCH (10:14)
[2022-02-09] MEDS: ENOXAPARIN NA (PORCINE) 40 MG/0.4 ML DISP.SYRIN SQ SCH (10:15)
[2022-02-09] MEDS: DONEPEZIL HCL 10 MG TABLET (FP) PO SCH (21:28)
[2022-02-09 21:36] VITALS: TEMP 98
[2022-02-09 23:07] VITALS: BP 135/72; PULSE 100; RESP 18
== END 2022-02-09 21:40 | disposition home or self-care (01) | DRG 194 ==
LOC: JER 20:10 → JERBED 23:38 → J7W 02-03 14:56
PROVIDERS: ADMIT Internal Medicine; ATTEND Internal Medicine
DX: J18.9 Pneumonia, unspecified organism (principal); J44.1 Chronic obstructive pulmonary disease with (acute) exacerbation; N39.0 Urinary tract infection, site not specified; N17.9 Acute kidney failure, unspecified; F03.90 Unspecified dementia, unspecified severity, without behavioral disturbance, psychotic disturbance, mood disturbance, and anxiety; I10 Essential (primary) hypertension; N40.1 Benign prostatic hyperplasia with lower urinary tract symptoms; R33.9 Retention of urine, unspecified; R31.9 Hematuria, unspecified; I25.10 Atherosclerotic heart disease of native coronary artery without angina pectoris; K21.9 Gastro-esophageal reflux disease without esophagitis
CPT/HCPCS: 0241U-QW; 36415; 71045-TC-FY; 80048; 80053; 81003; 82550; 82553; 83605; 83735; 84100; 84484; 85025; 87040; 87086; 87899; 93005; 93010; 93306-TC; 94640; 94761; 97116-GP; 97162-GP; 99285-25; J1100

== ENCOUNTER 2022-02-16 12:05 | Emergency (ER) | payer OTHER ==
[2022-02-16 12:19] VITALS: BMI 27.9
[2022-02-16] MEDS ORDERED: ACETAMINOPHEN 1000 MG/100 ML BAG IVPB ONE (14:13)
[2022-02-16] MEDS ORDERED: ALBUTEROL SO4 2.5/IPRATROPIUM 0.5 INH SOL 3 ML VIAL.NEB. NEB ONE ×2 (14:17→15:28)
[2022-02-16] MEDS ORDERED: ACETAMINOPHEN INJECTION 100 ML IVPB ONE (14:40)
[2022-02-16 14:44] LABS: BASO % 0.6 % (0-2.0); EOS % 0.6 % (0-4.5); HEMATOCRIT 33.3 % (35.4-49); LYMPH % 10.9 % (8-40); MCH 23.9 pg (25.7-33.7); MCHC 32.8 g/dl (32.0-35.9); MEAN CELL VOLUME 72.7 fl (80-96); MEAN PLT VOLUME 7.5 fl (7.5-11.1); MONO % 13.4 % (3.8-10.2); NEUT % 74.5 % (42.8-82.8); PLATELET COUNT 290 10^3/uL (134-434); RBC 4.59 M/mm3 (4.00-5.60); RDW 16.5 % (11.9-15.9)
[2022-02-16 14:51] LABS: INR 1.28 (0.83-1.09); PROTHROMBIN TIME (PATIENT) 14.8 SEC (9.7-13.0)
[2022-02-16 14:54] LABS: ACTIVATED PTT 36.5 SECONDS (25.2-36.5)
[2022-02-16 15:12] LABS: CALCIUM 8.7 mg/dL (8.5-10.1)
[2022-02-16 15:13] LABS: ALBUMIN 2.8 g/dl (3.4-5.0); BLOOD UREA NITROGEN 11.7 mg/dL (7-18)
[2022-02-16] MEDS ORDERED: SODIUM CHLORIDE 0.9% 500 ML INFUS.BAG IV ONE (15:20)
[2022-02-16 15:24] LABS: BILIRUBIN,TOTAL 0.8 mg/dL (0.2-1)
[2022-02-16 16:59] LABS: EPI CELLS 22 /uL (0-25.1); HYALINE CASTS 2 /uL (0-3.1); PH,URINE 5.5 (5.0-8.0); URINE APPEARANCE CLOUDY; URINE BACTERIA 25 /uL (0-1359); URINE BILIRUBIN NEGATIVE (NEGATIVE); URINE COLOR ORANGE; URINE GLUCOSE (UA) NEGATIVE (NEGATIVE); URINE KETONE NEGATIVE (NEGATIVE); URINE LEUK ESTERASE 1+ (NEGATIVE); URINE NITRITE NEGATIVE (NEGATIVE); URINE PROTEIN 2+ (NEGATIVE); URINE RBC 14338 /uL (0-23.9); URINE UROBILINOGEN 0.2 mg/dL (0.2-1.0); URINE WBC 120 /uL (0-25.8)
[2022-02-16 18:48] VITALS: BP 117/60; PULSE 88; RESP 16; TEMP 98.6
[2022-02-16] MEDS ORDERED: CEPHALEXIN MONOHYDRATE 500 MG CAPSULE (UD) PO ONE (19:44)
[2022-02-16] MEDS ORDERED: CEPHALEXIN MONOHYDRATE 500 MG CAPSULE (UD) ONE (20:17)
== END 2022-02-16 20:42 | disposition home or self-care (01) ==
LOC: JER 12:05
PROC: 3E033GC Introduction of Other Therapeutic Substance into Peripheral Vein, Percutaneous Approach (ICD-10-PCS; principal; 2022-02-16)
PROC: 3E0F7GC Introduction of Other Therapeutic Substance into Respiratory Tract, Via Natural or Artificial Opening (ICD-10-PCS; 2022-02-16)
DX: N39.0 Urinary tract infection, site not specified (principal); R31.9 Hematuria, unspecified
CPT/HCPCS: 0241U-QW; 36415; 71045-TC-FY; 74176-TC; 80053; 81003; 83605; 84484; 85025; 85610; 85730; 87040; 87086; 93005; 93010; 99285-25

== ENCOUNTER 2022-02-21 13:51 | Observation (INO) | payer OTHER ==
[2022-02-21 14:59] VITALS: BMI 31.8
[2022-02-21] MEDS ORDERED: ACETAMINOPHEN 1000 MG/100 ML BAG IVPB ONE ×2 (15:14→21:24)
[2022-02-21] MEDS ORDERED: ACETAMINOPHEN INJECTION 100 ML IVPB ONE ×2 (16:03→21:45)
[2022-02-21 16:39] LABS: BASO % 0.4 % (0-2.0); EOS % 0.4 % (0-4.5); HEMATOCRIT 32.8 % (35.4-49); HEMOGLOBIN 10.5 GM/dL (11.7-16.9); LYMPH % 10.3 % (8-40); MCH 23.2 pg (25.7-33.7); MCHC 32.1 g/dl (32.0-35.9); MEAN CELL VOLUME 72.3 fl (80-96); MEAN PLT VOLUME 7.4 fl (7.5-11.1); MONO % 11.7 % (3.8-10.2); NEUT % 77.2 % (42.8-82.8); PLATELET COUNT 313 10^3/uL (134-434); RBC 4.54 M/mm3 (4.00-5.60); RDW 16.3 % (11.9-15.9); WHITE BLOOD COUNT 6.3 K/mm3 (4.0-10.0)
[2022-02-21 16:59] LABS: BLOOD UREA NITROGEN 13.8 mg/dL (7-18); CALCIUM 8.8 mg/dL (8.5-10.1)
[2022-02-21 17:00] LABS: ALBUMIN 2.8 g/dl (3.4-5.0); MAGNESIUM 2.3 mg/dL (1.8-2.4)
[2022-02-21 17:03] LABS: CREATININE 1.2 mg/dL (0.55-1.3); PHOSPHOROUS 2.9 mg/dL (2.5-4.9)
[2022-02-21 17:04] LABS: BILIRUBIN,TOTAL 0.7 mg/dL (0.2-1); TOT PROT 7.3 g/dl (6.4-8.2)
[2022-02-21 20:17] LABS: URINE APPEARANCE CLEAR; URINE COLOR YELLOW
[2022-02-21 20:18] LABS: PH,URINE 5.5 (5.0-8.0); URINE BILIRUBIN NEGATIVE (NEGATIVE); URINE GLUCOSE (UA) NEGATIVE (NEGATIVE); URINE KETONE TRACE (NEGATIVE); URINE LEUK ESTERASE NEGATIVE (NEGATIVE); URINE NITRITE NEGATIVE (NEGATIVE); URINE PROTEIN 30 (NEGATIVE); URINE RBC 456.9 /uL (0-23.9); URINE UROBILINOGEN 0.2 mg/dL (0.2-1.0)
[2022-02-21 20:19] LABS: EPI CELLS 32.8 /uL (0-25.1); HYALINE CASTS 8.04 /uL (0-3.1); URINE BACTERIA 67.8 /uL (0-1359); URINE WBC 71.1 /uL (0-25.8)
[2022-02-22] MEDS ORDERED: CEFTRIAXONE 1 GM in DEXTROSE 5%-WATER - 50 ML IVPB ONE (05:00)
[2022-02-22] MEDS ORDERED: PIPERACILLIN/TAZOB 3.375 GM 3.375 GM/50 ML BAG IVPB ONE (05:12)
[2022-02-22] MEDS: PIPERACILLIN/TAZOB 3.375 GM 3.375 GM in DEXTROSE 5%-WATER - 50 ML IVPB SCH ×4 (05:22→17:21)
[2022-02-22 10:14] LABS: BASO % 0.7 % (0-2.0); EOS % 0.9 % (0-4.5); HEMATOCRIT 32.8 % (35.4-49); HEMOGLOBIN 10.4 GM/dL (11.7-16.9); LYMPH % 14.5 % (8-40); MCHC 31.7 g/dl (32.0-35.9); MEAN CELL VOLUME 72.5 fl (80-96); MEAN PLT VOLUME 7.7 fl (7.5-11.1); MONO % 13.3 % (3.8-10.2); NEUT % 70.6 % (42.8-82.8); PLATELET COUNT 344 10^3/uL (134-434); RBC 4.52 M/mm3 (4.00-5.60); RDW 16.6 % (11.9-15.9); WHITE BLOOD COUNT 5.6 K/mm3 (4.0-10.0)
[2022-02-22] MEDS: ACETAMINOPHEN 1000 MG/100 ML BAG IVPB PRN (10:48)
[2022-02-22 10:54] LABS: CALCIUM 9.1 mg/dL (8.5-10.1)
[2022-02-22 10:55] LABS: ALBUMIN 2.8 g/dl (3.4-5.0); BLOOD UREA NITROGEN 14.1 mg/dL (7-18); MAGNESIUM 2.1 mg/dL (1.8-2.4)
[2022-02-22 10:57] LABS: PHOSPHOROUS 3.3 mg/dL (2.5-4.9)
[2022-02-22 10:58] LABS: BILIRUBIN,TOTAL 0.8 mg/dL (0.2-1); CREATININE 1.1 mg/dL (0.55-1.3); TOT PROT 7.2 g/dl (6.4-8.2)
[2022-02-22] MEDS: ENOXAPARIN NA (PORCINE) 40 MG/0.4 ML DISP.SYRIN SQ SCH (11:28)
[2022-02-22] MEDS: DONEPEZIL HCL 10 MG TABLET (FP) PO SCH (21:12)
[2022-02-22] MEDS ORDERED: ALBUTEROL SO4 2.5/IPRATROPIUM 0.5 INH SOL 3 ML VIAL.NEB. NEB PRN (22:00)
[2022-02-23] MEDS: TAMSULOSIN HCL 0.4 MG CAP PO SCH (09:23)
[2022-02-23] MEDS: PANTOPRAZOLE 40 MG TABLET PO SCH (09:23)
[2022-02-23] MEDS: amLODIPine BESYLATE 5 MG TABLET (FP) PO SCH (09:23)
[2022-02-23] MEDS: ENOXAPARIN NA (PORCINE) 40 MG/0.4 ML DISP.SYRIN SQ SCH (09:49)
[2022-02-23] MEDS: ACETAMINOPHEN 1000 MG/100 ML BAG IVPB PRN (09:50)
[2022-02-23 10:01] LABS: BASO % 0.5 % (0-2.0); EOS % 0.9 % (0-4.5); HEMATOCRIT 31.8 % (35.4-49); HEMOGLOBIN 10.3 GM/dL (11.7-16.9); LYMPH % 15.3 % (8-40); MCH 23.7 pg (25.7-33.7); MCHC 32.5 g/dl (32.0-35.9); MEAN CELL VOLUME 72.9 fl (80-96); MEAN PLT VOLUME 7.4 fl (7.5-11.1); MONO % 12.5 % (3.8-10.2); NEUT % 70.8 % (42.8-82.8); PLATELET COUNT 317 10^3/uL (134-434); RBC 4.37 M/mm3 (4.00-5.60); RDW 16.4 % (11.9-15.9); WHITE BLOOD COUNT 5.6 K/mm3 (4.0-10.0)
[2022-02-23 10:13] LABS: CALCIUM 8.7 mg/dL (8.5-10.1)
[2022-02-23 10:14] LABS: ALBUMIN 2.5 g/dl (3.4-5.0); BLOOD UREA NITROGEN 9.7 mg/dL (7-18)
[2022-02-23 10:16] LABS: BILIRUBIN,DIRECT 0.2 mg/dL (0.0-0.2)
[2022-02-23 10:17] LABS: CREATININE 0.8 mg/dL (0.55-1.3)
[2022-02-23 10:18] LABS: TOT PROT 7.2 g/dl (6.4-8.2)
[2022-02-23 10:19] LABS: BILIRUBIN,TOTAL 0.6 mg/dL (0.2-1)
[2022-02-23] MEDS: TIOTROPIUM BROMIDE 2.5 MCG (SPIRIVA) RESPIMAT INHALER IH SCH (10:50)
[2022-02-23] MEDS: POLYETHYLENE GLYCOL (HEALTHYLAX) 3350 17 GM PACKET PO SCH ×2 (13:33→21:41)
[2022-02-23 15:41] VITALS: RESP 20
[2022-02-23] MEDS ORDERED: BISACODYL 5 MG TABLET.DR (FP) PO PRN (17:53)
[2022-02-23] MEDS: DONEPEZIL HCL 10 MG TABLET (FP) PO SCH (21:40)
[2022-02-23] MEDS ORDERED: DOCUSATE SODIUM 100 MG CAPSULE (FP) PO SCH (22:00)
[2022-02-24] MEDS: ACETAMINOPHEN 1000 MG/100 ML BAG IVPB PRN (06:36)
[2022-02-24] MEDS: POLYETHYLENE GLYCOL (HEALTHYLAX) 3350 17 GM PACKET PO SCH (06:36)
[2022-02-24 08:07] VITALS: TEMP 97.5
[2022-02-24 10:19] LABS: BASO % 0.4 % (0-2.0); EOS % 1.5 % (0-4.5); HEMATOCRIT 33.5 % (35.4-49); HEMOGLOBIN 10.5 GM/dL (11.7-16.9); LYMPH % 16.6 % (8-40); MCH 22.6 pg (25.7-33.7); MCHC 31.3 g/dl (32.0-35.9); MEAN CELL VOLUME 72.4 fl (80-96); MEAN PLT VOLUME 7.6 fl (7.5-11.1); NEUT % 67.5 % (42.8-82.8); PLATELET COUNT 346 10^3/uL (134-434); RBC 4.62 M/mm3 (4.00-5.60); RDW 16.5 % (11.9-15.9); WHITE BLOOD COUNT 5.4 K/mm3 (4.0-10.0)
[2022-02-24] MEDS: PANTOPRAZOLE 40 MG TABLET PO SCH (10:22)
[2022-02-24] MEDS: amLODIPine BESYLATE 5 MG TABLET (FP) PO SCH (10:22)
[2022-02-24] MEDS: TAMSULOSIN HCL 0.4 MG CAP PO SCH (10:22)
[2022-02-24] MEDS: TIOTROPIUM BROMIDE 2.5 MCG (SPIRIVA) RESPIMAT INHALER IH SCH (10:23)
[2022-02-24 10:38] LABS: ALBUMIN 2.5 g/dl (3.4-5.0); BLOOD UREA NITROGEN 11.2 mg/dL (7-18); CALCIUM 8.8 mg/dL (8.5-10.1); MAGNESIUM 2.1 mg/dL (1.8-2.4)
[2022-02-24 10:41] LABS: CREATININE 0.9 mg/dL (0.55-1.3)
[2022-02-24 10:43] LABS: BILIRUBIN,TOTAL 0.6 mg/dL (0.2-1); TOT PROT 7.2 g/dl (6.4-8.2)
[2022-02-24 11:51] VITALS: BP 131/67; PULSE 91
[2022-02-28 14:07] LABS: ENTAMOEBA HISTOLYTICA ANTIBODY Negative (Negative)
== END 2022-02-24 15:09 | disposition home health service (06) ==
LOC: JER 13:51 → INTOOBSV 21:04 → UNDOADMOB 21:04 → JERBED 21:04 → J8W 02-22 06:19
PROVIDERS: ADMIT Internal Medicine; ATTEND Nurse Practitioner Acute Care
PROC: 3E0F7GC Introduction of Other Therapeutic Substance into Respiratory Tract, Via Natural or Artificial Opening (ICD-10-PCS; principal; 2022-02-22)
PROC: 3E033NZ Introduction of Analgesics, Hypnotics, Sedatives into Peripheral Vein, Percutaneous Approach (ICD-10-PCS; 2022-02-22)
DX: N39.0 Urinary tract infection, site not specified (principal); K57.90 Diverticulosis of intestine, part unspecified, without perforation or abscess without bleeding; E78.5 Hyperlipidemia, unspecified; N40.0 Benign prostatic hyperplasia without lower urinary tract symptoms; I10 Essential (primary) hypertension; K44.9 Diaphragmatic hernia without obstruction or gangrene; R31.9 Hematuria, unspecified; Z96.0 Presence of urogenital implants; Z29.8 Encounter for other specified prophylactic measures; K76.89 Other specified diseases of liver; K80.20 Calculus of gallbladder without cholecystitis without obstruction; Z98.890 Other specified postprocedural states; Z87.891 Personal history of nicotine dependence; Z88.8 Allergy status to other drugs, medicaments and biological substances
CPT/HCPCS: 0241U-QW; 36415; 71045-TC-FY; 74177-TC; 80048; 80053; 80076; 81003; 82105; 83605; 83735; 84100; 84484; 85025; 85651; 86140; 86682; 86704; 86753; 86803; 87040; 87086; 87340; 87517; 87899; 93005; 93010; 94640; 96365; 96375; 96376; 97116-GP; 97161-GP; 99285-25; G0378; Q9967

== ENCOUNTER 2023-03-27 11:40 | Emergency (ER) | payer OTHER ==
[2023-03-27 11:53] VITALS: BMI 27.1
[2023-03-27] MEDS ORDERED: ACETAMINOPHEN 1000 MG/100 ML BAG IVPB ONE (13:43)
[2023-03-27] MEDS ORDERED: ACETAMINOPHEN INJECTION 100 ML IVPB ONE (13:47)
[2023-03-27 14:11] LABS: HEMATOCRIT 35.1 % (35.4-49); MCH 22.8 pg (25.7-33.7); MCHC 31.4 g/dl (32.0-35.9); MEAN CELL VOLUME 72.7 fl (80-96); MEAN PLT VOLUME 7.9 fl (7.5-11.1); PLATELET COUNT 151 10^3/uL (134-434); RBC 4.83 M/mm3 (4.00-5.60); RDW 17.6 % (11.9-15.9); WHITE BLOOD COUNT 6.5 K/mm3 (4.0-10.0)
[2023-03-27 14:20] LABS: INR 1.32 (0.83-1.09); PROTHROMBIN TIME (PATIENT) 15.3 SEC (9.7-13.0)
[2023-03-27 14:23] LABS: ACTIVATED PTT 35.7 SECONDS (25.2-36.5)
[2023-03-27 14:32] LABS: ALBUMIN 3.1 g/dl (3.4-5.0); BLOOD UREA NITROGEN 16.1 mg/dL (7-18); CALCIUM 8.4 mg/dL (8.5-10.1); MAGNESIUM 2.1 mg/dL (1.8-2.4)
[2023-03-27 14:35] LABS: CREATININE 1.2 mg/dL (0.55-1.3)
[2023-03-27 14:37] LABS: BILIRUBIN,TOTAL 0.9 mg/dL (0.2-1); TOT PROT 7.2 g/dl (6.4-8.2)
[2023-03-27 15:26] VITALS: BP 121/66; RESP 18
[2023-03-27 15:59] VITALS: PULSE 98; TEMP 97.7
[2023-03-27 18:36] LABS: ANISOCYTOSIS 1+; OVALOCYTE 1+; TARGET CELLS 1+
[2023-03-27 18:39] LABS: PLATELET ESTIMATE ADEQUATE
== END 2023-03-27 16:27 | disposition home or self-care (01) ==
LOC: JER 11:40
PROC: 3E033NZ Introduction of Analgesics, Hypnotics, Sedatives into Peripheral Vein, Percutaneous Approach (ICD-10-PCS; principal; 2023-03-27)
DX: U07.1 COVID-19 (principal); R05.9 Cough, unspecified; R53.81 Other malaise; R09.81 Nasal congestion
CPT/HCPCS: 0241U-QW; 36415; 71045-TC-FY; 80053; 83735; 84484; 85025; 85610; 85730; 93005; 93010; 99285-25